=== PATIENT | female | born 1960 | race Caucasian/White ===

== ENCOUNTER 2021-11-14 10:36 | Emergency (ER) | payer MEDICARE, MEDICAID, SELFPAY ==
--- NOTE | ~2021-11-14 | CT_ITS ---
EXAMINATION: CT CERVICAL SPINE WITHOUT CONTRAST CLINICAL INFORMATION: Fall. Neck pain. COMPARISON: None TECHNIQUE: Axial images through the cervical spine without contrast. Sagittal and coronal reconstructions on the technologist workstation were performed. This CT examination was performed using dose optimization techniques as appropriate, variously including the following: *Automated exposure control *Adjustment of mA and/or kV according to patient size (this includes techniques or standardized protocols for targeted exams where dose is matched to indication/reason for exam; i.e. extremities or head) *Use of iterative reconstruction technique DLP: 462 mGy-cm FINDINGS: The head is tilted to the right. There is mild 2 mm anterior subluxation of C4 with respect to C5. Bone alignment is otherwise normal. No fracture or dislocation is seen. There is degenerative spondylosis and degenerative disc disease at C5-C6 and C6-C7. There is bilateral multilevel facet arthritis. There are degenerative changes of the C1 dens articulation. Prevertebral soft tissues are normal. There is shotty cervical lymphadenopathy. Visualized lung apices are clear. CT/CT cervical spine wo con IMPRESSION: Degenerative changes. No fracture or dislocation. Fleischner guidelines were followed.
--- NOTE | ~2021-11-14 | CT_ITS ---
EXAMINATION: CT HEAD WITHOUT CONTRAST CLINICAL INFORMATION: Fall backwards. Head trauma. Patient is anticoagulated. Rule out bleed. COMPARISON: None TECHNIQUE: Contiguous axial imaging was performed from the skull base to vertex without intravenous administration of contrast. This CT examination was performed using dose optimization techniques as appropriate, variously including the following: *Automated exposure control *Adjustment of mA and/or kV according to patient size (this includes techniques or standardized protocols for targeted exams where dose is matched to indication/reason for exam; i.e. extremities or head) *Use of iterative reconstruction technique DLP: 663 mGy-cm FINDINGS: There is no evidence of acute intracranial hemorrhage or territorial infarction. No abnormal mass effect or midline shift is seen. Ramírez to white matter differentiation is well preserved. No extra-axial fluid collections are identified. The ventricles are normal in size. There is no abnormal attenuation within the brain parenchyma. The osseous structures and soft tissues are normal. The mastoid air cells and visualized portions of the paranasal sinuses are well aerated. CT/CT head/brain wo con IMPRESSION: No acute intracranial pathology.
[2021-11-14 10:43] VITALS: BP 148/88; PULSE 78; O2SAT 98
[2021-11-14 10:45] VITALS: BP 144/77; PULSE 68; RESP 19; TEMP 36.9; O2SAT 96; BMI 34.7
--- NOTE | 2021-11-14 11:03 | ED_ITS ---
HPI - Fall General Chief Complaint: Fall Stated Complaint: HEAD PAIN,FALL W/WHEELCHIR,-LOC,+CCOLLAR,+THINNERS Time Seen by Provider: 11/14/21 10:53 Source: patient Mode of arrival: EMS Limitations: no limitations History of Present Illness HPI Narrative: 61-year-old female who presents emergency department for evaluation injury fall. The patient states that she was being transport wheelchair to the [facility] (a program she is to daily) when the wheelchair that she was in fell backwards. Patient struck her head on the ground. She denied loss consciousness. She is on blood thinners. She is currently complaining of an intermittent, throbbing headache located throughout her entire head. The pain is moderate in intensity. is also complaining of pain in the back of her head where she hit the ground. She denies neck pain, chest pain, abdominal pain, nausea, vomiting, weakness. MD complaint: fall Onset (ago): hour(s) (1) Fall from: wheelchair Fall witnessed: yes, by living facility staff Place fall occurred: other (While being transported by wheelchair) Loss of consciousness: none Prolonged down time: no Symptoms prior to fall: none Context: other (Wheelchair fell backwards while the patient was being transported) Location of injury: head Severity scale (1-10): 7 Quality: throbbing Associated symptoms (after fall): headache Related Data Allergies Allergy/AdvReac Type Severity Reaction Status Date / Time erythromycin base Allergy Swelling Verified 11/14/21 10:59 Review of Systems Review of Systems: Yes all other systems are reviewed and are negative [facility] Past Medical History [facility] Narrative: Past medical history: Patient has history of traumatic brain injury. Social history: Patient lives in a long-term setting. Patient denies tobacco, alcohol and drug use. Social History Social History Advance Directives: No Advance Directives Information Provided: No Patient : No Physical Exam Vital Signs: Vital Signs: Last Vital Signs Temp 98.4 F 11/14/21 10:45 Pulse 68 11/14/21 10:45 Resp 19 11/14/21 10:45 BP 144/77 H 11/14/21 10:45 Pulse Ox 96 11/14/21 10:45 BMI result Body Mass Index 34.7 Const: Other: Awake, alert, female patient, pleasant, cooperative, in no distress, she does have slow dysarthric speech which is comprehensible which is most likely secondary to her previous traumatic brain injury HEENT: Other: Patient has tenderness palpation of the right occiput, no obvious hematoma to palpation, no lacerations or abrasions Ears: external ears normal General nose exam: Normal external nose present Face and sinus: Yes normal facial exam Mouth: Normal oral and palatal mucosa present Throat: Yes posterior oropharynx normal Eyes: General: appearance normal, both eyes and all related structures Pupils: Equal, round and reactive pupils present Neck: Neck: Yes normal visual inspection, Yes no lymphadenopathy, Yes trachea midline and Yes supple Chest: Chest palpation & inspection: normal inspection of the chest and normal palpation of entire chest wall Resp: Effort & Inspection: normal respiratory effort and able to speak in complete sentences Auscultation: clear to auscultation bilaterally Cardio: Rate: regular rate Rhythm: regular rhythm Heart sounds: S1 normal heart sound present, S2 normal heart sound present and no murmurs GI: Inspection: Yes normal to inspection Palpation (GI): Soft to palpation, nontender and no guarding Auscultation: normal bowel sounds : General: Yes no CVA tenderness Back/Spine/Pelvis: Back: no CVA tenderness Skin: General skin exam: no rashes or lesions noted Neuro: Cranial nerves: Yes CN's II-XII intact bilaterally and Yes Equal, round and reactive pupils present Cognition (Neuro): normal cognition Motor exam (neuro): 5/5 motor strength present throughout Extrem: General: Yes normal to inspection Psych: Appearance: grossly normal Speech and movement: Normal speech and movement present Affect: normal affect Attitude: cooperative Thought process: Normal thought process present Thought content: Normal thought content present Course Course Course Narrative: 61-year-old female who presents emergency department for evaluation head injury that occurred when the wheeled sure that she is being transported in fell backwards causing her to strike her head on the ground. This was a witnessed fall, there was no loss of consciousness. The patient is currently complaining of head pain and headache. Patient is reported to be on blood thinners. Patient's examination did reveal tenderness palpation of the right occiput area of her head with no hematoma or bleeding. I did order a CT scan of the head and cervical spine. Patient's headache was treated with Tylenol 975 mg orally. 1339: CT scan of the head and cervical spine revealed no acute process. Patient is feeling better after receiving the Tylenol and states that her headache is resolved. There is a long-term staff member with the patient and the patient is medically cleared to be discharged back to her long-term. Discharge Plan Discharge Clinical Impression: Fall involving wheelchair Qualifiers: Encounter type: initial encounter Qualified Code(s): W05.0XXA - Fall from non- moving wheelchair, initial encounter Closed head injury Qualifiers: Encounter type: initial encounter Qualified Code(s): S09.90XA - Unspecified injury of head, initial encounter Headache Qualifiers: Headache chronicity pattern: acute headache Intractability: not intractable Patient Disposition: Home, Self-Care Instructions: Head Injury (ED) Additional Instructions: The CT scan of your head and cervical spine (neck) were normal, this is reassuring. Continue taking your medications as prescribed by your providers. Follow the head injury instructions. Follow-up with your doctor in 2 days. Please return to the emergency department if your symptoms get worse or if you develop any symptoms that are concerning to you.
[2021-11-14] MEDS: Acetaminophen 325 MG TABLET 975 MG PO (11:45)
== END 2021-11-14 13:53 | disposition home or self-care (01) ==
PROVIDERS: Emergency Provider Emergency Medicine Emergency Medical Services; PCP Nurse Practitioner Family
DX: S09.90XA Unspecified injury of head, initial encounter (principal); G44.309 Post-traumatic headache, unspecified, not intractable; M54.2 Cervicalgia; W01.0XXA Fall on same level from slipping, tripping and stumbling without subsequent striking against object, initial encounter; Y93.9 Activity, unspecified; Y92.9 Unspecified place or not applicable; Y99.9 Unspecified external cause status
CPT/HCPCS: 70450; 72125; 99283; 99284

== ENCOUNTER 2023-02-25 11:39 | Emergency (ER) | payer MEDICARE, MEDICAID, SELFPAY ==
--- NOTE | ~2023-02-25 | CT_ITS ---
EXAMINATION: CT HEAD WITHOUT CONTRAST CT CERVICAL SPINE WITHOUT CONTRAST CLINICAL INFORMATION: Fall. Head strike. COMPARISON: CT head and cervical spine 11/14/2021. TECHNIQUE: Sticker Hand images were obtained. CT imaging of the head and cervical spine was performed without contrast. Data was reformatted into multiplanar images at the acquisition workstation. This CT examination was performed using dose optimization techniques as appropriate, including one or more of the following: Automated exposure control, iterative reconstruction, and adjustment of technique factors (mA and/or kVp) according to patient size (this includes techniques or standardized protocols for targeted exams where dose is matched to indication/reason for exam). Fleischner Society criteria for the followup of incidental pulmonary nodules was implemented if appropriate. DLP: 1141 mGy-cm. FINDINGS: Head: There is no acute intracranial hemorrhage or abnormal extra-axial collection. No intracranial mass effect or midline shift. Lateral and third ventricles are normal. No hydrocephalus. Ramírez-white matter differentiation is grossly preserved and there is no evidence of acute territorial infarct. The calvarium and skull base are intact. Mastoid air cells and middle ear cavities are well aerated. No active paranasal sinus disease. Cervical spine: There is 3 mm anterolisthesis of C4 on C5 and 2 mm anterolisthesis of C3 on C4 that appears related to advanced facet degenerative changes at each of these 2 levels. No acute cervical spinal fracture. No abnormal prevertebral soft tissue swelling. Grossly no spinal canal compromise. There is loss of intervertebral disc height with associated sclerotic degenerative endplate changes and hypertrophic disc osteophyte spurring at multiple levels. Partially calcified atherosclerotic plaque involves both carotid bifurcations. Grossly no pathologically enlarged cervical lymph nodes. Lung apices are clear. CT/CT cervical spine wo IV con IMPRESSION: Head: No evidence of acute territorial infarct or hemorrhage. Cervical spine: There is advanced multilevel degenerative spondylosis of the cervical spine with 3 mm anterolisthesis of C4 on C5 and 2 mm anterolisthesis of C3 on C4 related to advanced facet degenerative changes at each of these 2 levels. No acute cervical spine fracture.
--- NOTE | ~2023-02-25 | CT_ITS ---
EXAMINATION: CT HEAD WITHOUT CONTRAST CT CERVICAL SPINE WITHOUT CONTRAST CLINICAL INFORMATION: Fall. Head strike. COMPARISON: CT head and cervical spine 11/14/2021. TECHNIQUE: Credit Department Manager images were obtained. CT imaging of the head and cervical spine was performed without contrast. Data was reformatted into multiplanar images at the acquisition workstation. This CT examination was performed using dose optimization techniques as appropriate, including one or more of the following: Automated exposure control, iterative reconstruction, and adjustment of technique factors (mA and/or kVp) according to patient size (this includes techniques or standardized protocols for targeted exams where dose is matched to indication/reason for exam). Fleischner Society criteria for the followup of incidental pulmonary nodules was implemented if appropriate. DLP: 1141 mGy-cm. FINDINGS: Head: There is no acute intracranial hemorrhage or abnormal extra-axial collection. No intracranial mass effect or midline shift. Lateral and third ventricles are normal. No hydrocephalus. Ramírez-white matter differentiation is grossly preserved and there is no evidence of acute territorial infarct. The calvarium and skull base are intact. Mastoid air cells and middle ear cavities are well aerated. No active paranasal sinus disease. Cervical spine: There is 3 mm anterolisthesis of C4 on C5 and 2 mm anterolisthesis of C3 on C4 that appears related to advanced facet degenerative changes at each of these 2 levels. No acute cervical spinal fracture. No abnormal prevertebral soft tissue swelling. Grossly no spinal canal compromise. There is loss of intervertebral disc height with associated sclerotic degenerative endplate changes and hypertrophic disc osteophyte spurring at multiple levels. Partially calcified atherosclerotic plaque involves both carotid bifurcations. Grossly no pathologically enlarged cervical lymph nodes. Lung apices are clear. CT/CT head/brain wo IV con IMPRESSION: Head: No evidence of acute territorial infarct or hemorrhage. Cervical spine: There is advanced multilevel degenerative spondylosis of the cervical spine with 3 mm anterolisthesis of C4 on C5 and 2 mm anterolisthesis of C3 on C4 related to advanced facet degenerative changes at each of these 2 levels. No acute cervical spine fracture.
--- NOTE | 2023-02-25 11:45 | ED_ITS ---
HPI - Fall General Chief Complaint: Fall Stated Complaint: Body Pain S/P Fall 02/25/23 Time Seen by Provider: 02/25/23 12:30 Source: patient and other ([facility]) Mode of arrival: wheelchair Limitations: physical limitation History of Present Illness HPI Narrative: Patient is a 62-year-old female with history of TBI and COPD presenting to the emergency department for evaluation after a slip and fall off the toilet earlier this morning. Patient reports that she lost her balance and this caused her to fall off of the toilet. Staff reports fall was unwitnessed. Patient denies loss of consciousness. She is not anticoagulated, is on ASA. Patient denies any current complaints of pain. She denies any dizziness or lightheadedness. She denies any changes in vision. She denies any nausea or vomiting. Staff reports minor avulsion to right buttock. MD complaint: fall Onset (ago): hour(s) Fall from: other (toilet) Fall witnessed: no Place fall occurred: other ([facility]) Loss of consciousness: unsure Symptoms prior to fall: none (patient denies) Context: other Location of injury: head and buttocks Associated symptoms (after fall): denies Related Data Allergies Allergy/AdvReac Type Severity Reaction Status Date / Time erythromycin base Allergy Swelling Verified 02/25/23 11:45 Review of Systems Review of Systems: As per HPI. Yes all other systems are reviewed and are negative Constitutional: Constitutional: Reports as per HPI [facility] Social History Social History Advance Directives: No Physical Exam Vital Signs: Vital Signs: Last Vital Signs Temp 98 F 02/25/23 11:46 Pulse 73 02/25/23 11:46 Resp 16 02/25/23 11:46 BP 110/52 L 02/25/23 11:46 Pulse Ox 96 02/25/23 11:46 O2 Del Method Room Air 02/25/23 11:46 BMI result Body Mass Index 31.9 Vital signs have been reviewed and appear to be correct. Blood pressure normal. Heart rate normal. Respiratory rate normal. Temperature normal. Oxygen saturation normal. Const: General: cooperative, healthy appearing, comfortable, no acute distress, alert and awake Nutritional Appearance: average body habitus Limitations: physical limitations (TBI) and wheelchair HEENT: Head: Yes normal to inspection, Yes No palpable skull fracture present, Yes normocephalic, Yes atraumatic, No Ramirez's sign, No raccoon eyes and No periorbital ecchymosis Ears: external ears normal and TM's normal bilaterally General nose exam: Normal external nose present Face and sinus: Yes face symmetric Mouth: oropharynx normal and moist mucous membranes Throat: Yes uvula midline Eyes: Pupils: Equal, round and reactive pupils present Neck: Neck: Yes normal visual inspection and Yes supple Resp: Effort & Inspection: normal respiratory effort and able to speak in complete sentences Auscultation: clear to auscultation bilaterally Cardio: Rate: regular rate Rhythm: regular rhythm Heart sounds: S1 normal heart sound present and S2 normal heart sound present GI: Palpation (GI): Soft to palpation and nontender Auscultation: normoactive bowel sounds : General: Yes no CVA tenderness Back/Spine/Pelvis: Back: no CVA tenderness Cervical Spine: normal cervical lordosis, cervical ROM normal, No Cervical spine tenderness and No step off deformity Thoracic/Lumbar Spine: thoracic and lumbar spine normal to inspection, No thoracic spinal tenderness and No lumbar spinal tenderness Skin: General skin exam: elasticity normal and turgor normal Trauma: other (1cm avulsion right buttock, no active bleeding) Neuro: General: moves all extremities, no focal motor deficits and CN's II-XI intact bilaterally Cranial nerves: Yes Equal, round and reactive pupils present Cognition (Neuro): normal cognition Motor exam (neuro): 5/5 motor strength present throughout Extrem: General: Yes full ROM, Yes no pedal edema and Yes no calf tenderness Psych: Mental Status: mental status grossly normal Affect: normal affect Thought process: Normal thought process present Course Course Course Narrative: RME: 62yo F wheelchair bound presenting to the ED w/aid c/o [facility]itnessed [facility] w/+head strike. Pt reports [place], denies other sx. Is on ASA. Denies lightheadedness/dizziness prior to fall No palpable skull depression or hematoma Head/C-spine CT ordered Full HPI, ROS and PE to be performed by primary ED provider. Medical Decision Making Medical Decision Making [facility] Narrative: Patient is a 62-year-old female with history of TBI and COPD presenting to the emergency department for evaluation after a slip and fall off the toilet earlier this morning. On exam patient is pleasant, awake, alert, VS WNL, afebrile, normal neurological exam without focal deficits, no midline spinal tenderness, superficial skin avulsion to right buttock without active bleeding. Given reported symptoms and physical exam findings, initial differential includes ICH, skull fracture, cervical fracture, skin avulsion. CT notable for no acute abno rmality. My interpretation is in agreement with the radiologist's interpretation. Feel patient is stable for [facility] back [facility] with staff. Return precautions discussed with staff. Staff verbalized understanding of and agreement with plan. Differential Diagnosis Differential Diagnoses: The differential diagnosis associated with the presentation includes As per MDM. Independent Interpretation I performed an independent interpretation of an: CT Scan Radiology Impression Discussion of test interpretation with radiology: I have reviewed the radiologist's reading. Radiologist Impression: CT/CT head/brain wo IV con IMPRESSION: Head: No evidence of acute territorial infarct or hemorrhage. ? Cervical spine: There is advanced multilevel degenerative spondylosis of the cervical spine with 3 mm anterolisthesis of C4 on C5 and 2 mm anterolisthesis of C3 on C4 related to advanced facet degenerative changes at each of these 2 levels. No acute cervical spine fracture. Independent Historian Clinical information obtained from an independent historian. History obtained from or confirmed by: Other (staff) External Record Review External record reviewed: Inpatient record, Office record and Outpatient record Discharge Plan Discharge Clinical Impression: Fall, Avulsion of skin Patient Disposition: Home, Self-Care Additional Instructions: You have been evaluated in the emergency department today for head injury from a fall. Your CT scan did not show signs of bleed or fractures in your head or neck. We recommend you take 600 mg ibuprofen every 6 hours or Tylenol 650 mg every 6 hours as needed for pain. If needed, you can alternate these medications so that you take 1 medication every 3 hours. For instance, at noon take ibuprofen, then at 3:00 p.m. take Tylenol, then at 6:00 p.m. take ibuprofen. Please schedule an appointment with for follow-up with your primary care provider as soon as possible. Return to the emergency department if you experience worsening or uncontrolled pain, vision changes, recurrent vomiting, difficulty with normal activities, abnormal behavior, difficulty walking, numbness, weakness, or any other concerning symptoms.
[2023-02-25 11:46] VITALS: BP 110/52; PULSE 73; RESP 16; TEMP 36.6; O2SAT 96; BMI 31.9
== END 2023-02-25 15:16 | disposition home or self-care (01) ==
PROVIDERS: Emergency Provider Emergency Medicine; PCP Nurse Practitioner Family
DX: S30.810A Abrasion of lower back and pelvis, initial encounter (principal); W18.11XA Fall from or off toilet without subsequent striking against object, initial encounter; Y93.89 Activity, other specified; Y92.041 Bathroom in boarding-house as the place of occurrence of the external cause; Y99.9 Unspecified external cause status
CPT/HCPCS: 70450; 72125; 99282; 99284

== ENCOUNTER 2023-06-28 19:14 | Emergency (ER) | payer MEDICARE, MEDICAID, SELFPAY ==
--- NOTE | ~2023-06-28 | XR_ITS ---
EXAMINATION: RIGHT KNEE: RIGHT SHOULDER CLINICAL INFORMATION: Mechanical fall with right knee and shoulder pain COMPARISON: None available. TECHNIQUE: 3 views right shoulder, 2 views right FINDINGS: Mild degenerative changes are present in the shoulder. No fracture or dislocation. There is evidence of rotator cuff disease. Severe degenerative changes are present in the right knee with marked narrowing of the medial and patellofemoral compartment. No fractures or effusions are seen. A large partially visualized exostosis is seen arising from the femoral metaphysis medially XR/XR knee RT 2V IMPRESSION: 1. No evidence of an acute traumatic osseous injury. 2. Degenerative changes in the shoulder and knee as described above.
--- NOTE | ~2023-06-28 | XR_ITS ---
EXAMINATION: RIGHT KNEE: RIGHT SHOULDER CLINICAL INFORMATION: Mechanical fall with right knee and shoulder pain COMPARISON: None available. TECHNIQUE: 3 views right shoulder, 2 views right FINDINGS: Mild degenerative changes are present in the shoulder. No fracture or dislocation. There is evidence of rotator cuff disease. Severe degenerative changes are present in the right knee with marked narrowing of the medial and patellofemoral compartment. No fractures or effusions are seen. A large partially visualized exostosis is seen arising from the femoral metaphysis medially XR/XR shoulder RT min 2V IMPRESSION: 1. No evidence of an acute traumatic osseous injury. 2. Degenerative changes in the shoulder and knee as described above.
[2023-06-28 19:32] VITALS: BP 138/88; BP 140/75; PULSE 110; PULSE 95; RESP 16; O2SAT 94; O2SAT 97; BMI 31.7
--- NOTE | 2023-06-28 20:13 | ED.FALL ---
HPI - Fall General Chief Complaint: Fall Stated Complaint: mechanical fall Time Seen by Provider: 06/28/23 19:46 Source: patient and EMS Mode of arrival: EMS Limitations: no limitations History of Present Illness HPI Narrative: 62-year-old female came in by ambulance for evaluation after a mechanical fall. Patient with a history of TBI lives at a halfway, mostly in a wheelchair, patient usually require help to be transferred from the wheelchair to the regular chair patient attempt to transfer herself from the wheelchair to the regular chair fell on her right leg/knee, patient declined head injury, no LOC, no neck pain, no nausea, no vomiting, no weakness. No chest pain. Related Data Allergies Allergy/AdvReac Type Severity Reaction Status Date / Time erythromycin base Allergy Swelling Verified 06/28/23 19:35 Review of Systems Review of Systems: All other systems are reviewed and are negative Constitutional: Reports as per HPI and Reports no additional constitutional complaints Eyes: Reports as per HPI and Reports no additional eye complaints Reports system reviewed and no additional complaints, except as documented Cardiovascular: Reports as per HPI and Reports no additional cardiovascular complaints Respiratory: Reports as per HPI and Reports no additional respiratory complaints Gastrointestinal: Reports as per HPI and Reports no additional gastrointestinal complaints Genitourinary: Reports no additional female genitourinary complaints Musculoskeletal: Reports no additional musculoskeletal complaints Skin/Breast: Reports system reviewed and no additional complaints, except as docu Psychiatric: Reports no additional psychiatric complaints Endocrine: Reports no additional endocrine complaints Hematologic/Lymphatic: Reports no additional hematologic/lymphatic complaints Allergic/Immunologic: Reports no additional allergic/immunologic complaints Reports system reviewed and no additional complaints, except as documented and Reports Abnormal speech present PMFSH Social History Social History Smoked in Last 30 Days: No Use of substances other than those prescribed or required for medical reasons: No Advance Directives: Yes Advance Directives Information Provided: Yes Advance Directives on File: No Physical Exam Vital Signs: Vital Signs: Last Vital Signs Pulse 95 06/28/23 19:32 Resp 16 06/28/23 19:32 BP 140/75 H 06/28/23 19:32 Pulse Ox 97 06/28/23 19:32 O2 Del Method Room Air 06/28/23 19:32 BMI result Body Mass Index 31.7 Vital signs have been reviewed and appear to be correct. Blood pressure elevated. Heart rate normal. Respiratory rate normal. Temperature normal. Oxygen saturation normal. Appearance: Alert. Oriented X3. No acute distress. Head: Normal external exam. Normocephalic. Atraumatic. No Ramirez signs noted. No raccoon eyes noted Eyes: PERRLA. EOMI. Conjunctiva and sclera normal. Eyelids normal. ENT: TM's Normal. Pharynx normal. Uvula midline. Moist mucous membranes. No trismus noted. No drooling noted. No muffled voice noted. Neck: Normal inspection. Neck supple. FROM. No adenopathy. Thyroid Normal. No meningeal signs. No neck mass noted. CVS: Normal heart rate and rhythm. Heart sound normal. No murmurs noted. Pulses normal throughout. Respiratory: No respiratory distress. Painless inspiration. Breath sounds normal. No wheezes/rales/rhonchi noted. Chest nontender. No accessory muscle usage noted or decreased air movement noted. Abdomen: Soft and nontender. Bowel sounds normal in all 4 quadrants. No distention noted. No organomegaly noted. No visible injury noted. Back: No CVA tenderness. Full range of motion noted. Skin: Skin warm and dry. Normal skin color. Normal skin turgor. No rashes/lesions/lacerations noted. Extremities: No lower extremity edema. Extremities exhibit normal range of motion. Extremities nontender. Neuro: Oriented X 3. Cranial nerve exam: II-XII are grossly intact No motor deficit. No sensory deficit. Reflexes normal. Course Reevaluation(s) Reevaluation #1: Mechanical fall without head or neck injury, right shoulder/right knee contusion no acute fracture. Time: 21:43 Medical Decision Making Medical Decision Making [facility] Narrative: S/p mechanical fall, no head or C-spine injury, no history of blood thinner. right shoulder/right knee no acute fracture Differential Diagnosis Differential Diagnoses: The differential diagnosis associated with the presentation includes (Closed head injury, cervical spine injury, right shoulder fracture, right knee fracture.) Admission/Observation Consideration of admission/observation: Escalation of care including admission/observation considered Independent Interpretation I performed an independent interpretation of an: Plain X-Ray (Right shoulder/right knee: No acute fracture dislocation.) Radiology Impression Discussion of test interpretation with radiology: I have reviewed the radiologist's reading. Discharge Plan Discharge Clinical Impression: Accident due to mechanical fall without injury Qualifiers: Encounter type: initial encounter Qualified Code(s): W19.XXXA - Unspecified fall, initial encounter Patient Disposition: Home, Self-Care Instructions: Fall Prevention for Older Adults (ED)
[2023-06-28 21:50] VITALS: BP 133/82; PULSE 95; RESP 16; O2SAT 96
[2023-06-28 22:21] VITALS: BP 151/78; PULSE 91; RESP 16; O2SAT 97
== END 2023-06-28 22:23 | disposition home or self-care (01) ==
PROVIDERS: Emergency Provider Emergency Medicine
DX: S89.91XA Unspecified injury of right lower leg, initial encounter (principal); S49.91XA Unspecified injury of right shoulder and upper arm, initial encounter; M25.561 Pain in right knee; W05.0XXA Fall from non-moving wheelchair, initial encounter; Y93.9 Activity, unspecified; Y92.9 Unspecified place or not applicable; Y99.9 Unspecified external cause status; Z79.899 Other long term (current) drug therapy
CPT/HCPCS: 73030; 73560; 99283; 99284

== ENCOUNTER 2023-08-28 10:11 | Emergency (ER) | payer MEDICARE, MEDICAID, SELFPAY ==
--- NOTE | ~2023-08-28 | XR_ITS ---
EXAMINATION: XR KNEE, RIGHT CLINICAL INFORMATION: Pain after fall COMPARISON: Right knee x-rays June 28, 2023 TECHNIQUE: Four views of the right knee. FINDINGS: Similar abnormal appearance of the distal femur. There is mild narrowing of the medial joint space height. Moderate-sized tricompartmental osteophytes are present. No suprapatellar joint effusion. XR/XR knee RT 3V IMPRESSION: Moderate to severe degenerative changes of the right knee. No fracture.
[2023-08-28 10:32] VITALS: BP 148/88; PULSE 84; RESP 18; TEMP 36.3; O2SAT 94; BMI 33.7
--- NOTE | 2023-08-28 14:01 | ED.LOWEXIN ---
HPI - Extremity Injury (Lower) General Chief Complaint: Extremity Injury, Lower Stated Complaint: Fall/R knee pain Time Seen by Provider: 08/28/23 12:05 Source: patient, RN notes reviewed and other ([employer] worker) Mode of arrival: wheelchair Limitations: physical limitation History of Present Illness HPI Narrative: This is a 62-year-old female, with a history of TBI lives at long term, wheelchair-bound, and COPD, presenting to the emergency department for evaluation after mechanical fall on Friday as well as today. 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 insulation worker also reports that today during a transfer from bed to toilet she landed onto her right knee again. There was no loss of consciousness. She did not hit her head. Both of these falls were witnessed per group fitness assistant department head. She has not on blood thinners. insulation worker states that she is acting at her baseline. Patient reports pain in her right knee as well as weakness in her right knee which is chronic for her and often times causes her to fall. She states that she otherwise feels okay No other complaints or concerns at this time. complaint: knee injury Onset (ago): day(s) Type of Injury: blunt Place: home Severity: moderate Relieving factors: nothing Exacerbating factors: weight bearing, movement and palpation Context: fall Other symptoms: none Related Data Allergies Allergy/AdvReac Type Severity Reaction Status Date / Time erythromycin base Allergy Swelling Verified 08/28/23 10:32 Review of Systems Review of Systems: Yes all other systems are reviewed and are negative PMFSH Past Medical History Attestation statement: The following information was validated with the patient. Social History Social History Advance Directives: No Advance Directives Information Provided: No Physical Exam Vital Signs: Vital Signs: Last Vital Signs Temp 97.4 F 08/28/23 10:32 Pulse 84 08/28/23 10:32 Resp 18 08/28/23 10:32 BP 148/88 H 08/28/23 10:32 Pulse Ox 94 08/28/23 10:32 O2 Del Method Room Air 08/28/23 10:32 BMI result Body Mass Index 33.7 Const: Other: General: Awake, alert. No acute distress. HEENT: Normal inspection, head is normocephalic atraumatic CVS: Normal heart rate and rhythm. Pulses normal. Respiratory: No respiratory distress Skin: Warm, dry, no rashes noted to exposed skin. Normal skin color. Normal skin turgor. Extremities: Right knee: With no obvious bony deformity or swelling, mild tenderness palpation along the patella, full range of motion of the knee without difficulty. No open wounds No varus or valgus laxity. Negative anterior-posterior drawer test Medical Decision Making Medical Decision Making MDM Narrative: This is a 62-year-old female, with a history of COPD, wheelchair-bound, TBI, presenting to the emergency department accompanied by group fitness assistant department head, presenting to the emergency department for evaluation of right knee pain status post to mechanical falls which occurred this week. Both these falls were witnessed, and occurred during transfers. Patient is wheelchair-bound, on examination, she has tenderness palpation along the anterior knee. No calf tenderness. No open wounds, or obvious bony deformity or swelling. Differential diagnoses include fracture, strain, sprain, contusion. X-rays were obtained revealing moderate to severe osteoarthritis. This was discussed with patient as well as group fitness assistant department head. Patient was given orthopedic follow-up. She has not on blood thinners, and there was no head strike, she is neurologically intact and at her baseline per group fitness assistant department head therefore CT scan of the head is not indicated at this time. Given return precautions. They understand and agree with plan. Stable for discharge Differential Diagnosis Differential Diagnoses: The differential diagnosis associated with the presentation includes See above Independent Interpretation I performed an independent interpretation of an: Plain X-Ray Interpretation: I reviewed the x-ray and agree with the radiology report Radiology Impression Discussion of test interpretation with radiology: I have reviewed the radiologist's reading. Radiologist Impression: EXAMINATION: XR KNEE, RIGHT CLINICAL INFORMATION: Pain after fall COMPARISON: Right knee x-rays June 28, 2023 TECHNIQUE: Four views of the right knee. FINDINGS: Similar abnormal appearance of the distal femur. There is mild narrowing of the medial joint space height. Moderate-sized tricompartmental osteophytes are present. No suprapatellar joint effusion. XR/XR knee RT 3V IMPRESSION: Moderate to severe degenerative changes of the right knee. No fracture. Dictated By: Marcel Palafox MD Discharge Plan Discharge Clinical Impression: Right knee sprain, Knee osteoarthritis Patient Disposition: Home, Self-Care Instructions: Knee Sprain (ED), Osteoarthritis (ED) Additional Instructions: Amy was seen in the emergency department today due to a mechanical fall. An x-ray of her right knee was obtained, revealing no acute bony abnormalities. Right knee does show moderate to severe osteoarthritis. I am recommending follow-up with Orthopedics, call today to make an appointment. You may ice, and also take Tylenol as needed for pain. If any new or worsening symptoms occur please return for re-evaluation. Referrals: [facility] [Provider Group] Interventions: ED Discharge Assessment Last Done: 08/28/23 14:26 Discharge Date/Time: 08/28/23 14:27
== END 2023-08-28 14:27 | disposition home or self-care (01) ==
PROVIDERS: Emergency Provider Emergency Medicine; PCP Nurse Practitioner Family
DX: S83.91XA Sprain of unspecified site of right knee, initial encounter (principal); W01.0XXA Fall on same level from slipping, tripping and stumbling without subsequent striking against object, initial encounter; Y93.9 Activity, unspecified; Y92.9 Unspecified place or not applicable; Y99.9 Unspecified external cause status
CPT/HCPCS: 73562; 99282; 99283

== ENCOUNTER 2023-09-23 10:05 | Outpatient (AMB) | payer MEDICARE, MEDICAID, SELFPAY ==
[2023-09-23 10:12] VITALS: BMI 33.7
--- NOTE | 2023-09-23 10:12 | MHC.OFFVIS ---
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 She states that her leg gave out and she fell on her Right knee about one month ago. She has had surgery on the Right knee when she was a teenager. The patient states that she spends most of her time, even before her recent fall, in a wheelchair. She takes Tylenol which gives her mild relief. Allergies erythromycin base Allergy (Verified 08/28/23 10:32) Swelling Medication List - Last Reconciled 09/23/23 by Wale Moulton MD aripiprazole 30 mg PO DAILY celecoxib 200 mg PO DAILY cephalexin 500 mg PO QID famotidine 40 mg PO DAILY fluticasone propionate 50 mcg/actuation 1 spray intranasal BID haloperidol 5 mg PO BEDTIME hydroxychloroquine 200 mg PO BID methotrexate sodium 20 mg PO QWEEK umeclidinium 62.5 mcg/actuation (Incruse Ellipta) 1 inh inhalation DAILY Physical Exam Vital Signs: BMI result Body Mass Index 33.7 Extrem Other: Right knee examination shows a minimal effusion, mild crepitus with range of motion, tenderness along her lateral joint line, no instability Results Reviewed Results Reviewed: X-rays of the patient's right knee show moderate diffuse degenerative changes, possible subacute depression of her lateral Assessment & Plan Assessment & Plan (1) Arthritis of right knee: Code(s): M17.11 - Unilateral primary osteoarthritis, right knee Plan Ms. Fox presents with right knee pain due to degenerative joint disease as well as possible subacute depression fracture of her lateral tibial plateau. Because of the possibility of a subacute fracture we will hold off on a cortisone injection for now. The patient can continued gentle [id number] exercises to prevent stiffness. She is encouraged to avoid activities that cause significant discomfort. I will see her back in 2 months' time for repeat clinical examination. If she has continued discomfort at that time we will further discuss the risks and benefits of a cortisone injection. Feel free to call me at any time should questions regarding her orthopedic management arise. I spent 19 minutes in reviewing the patient's records and imaging studies, seeing the patient and documenting in the medical record. Coding Level of Care Code New Pt Level 2 (79439) Diagnoses Arthritis of right knee M17.11
== END 2023-09-23 10:41 | disposition home or self-care (01) ==
PROVIDERS: PCP Nurse Practitioner Family; Visit Provider Orthopaedic Surgery
DX: M17.11 Unilateral primary osteoarthritis, right knee (principal)
CPT/HCPCS: 99202

== ENCOUNTER → 2023-09-23 10:05 | Outpatient (BNVA) | payer MEDICARE, MEDICAID, SELFPAY | PROVIDERS: PCP Nurse Practitioner Family; Visit Provider Orthopaedic Surgery | DX: M17.11 Unilateral primary osteoarthritis, right knee (principal) | CPT/HCPCS: 99202 ==

== ENCOUNTER 2023-11-04 08:44 | Outpatient (REF) | payer MEDICARE, MEDICAID, SELFPAY ==
--- NOTE | ~2023-11-04 | XR_ITS ---
EXAMINATION: XR KNEE, RIGHT CLINICAL INFORMATION: Unilateral primary osteoarthritis, right knee COMPARISON: None available. TECHNIQUE: 3 views of the right knee. FINDINGS: No acute fracture. Trace joint moderate-sized tricompartment marginal osteophytes. Effusion. Similar appearance of the distal femur. There is mild narrowing of the medial joint space height. XR/XR knee RT 3V IMPRESSION: Moderate to severe degenerative changes of the right knee. No acute fracture.
== END 2023-11-04 08:45 | disposition home or self-care (01) ==
LOC: HO.HOSX 08:44
PROVIDERS: Visit Provider Orthopaedic Surgery
DX: M17.11 Unilateral primary osteoarthritis, right knee (principal)
CPT/HCPCS: 20610; 73562; 99212; J1010

== ENCOUNTER 2023-11-04 11:10 | Outpatient (AMB) | payer MEDICARE, MEDICAID, SELFPAY ==
[2023-11-04 11:26] VITALS: BMI 34.5
--- NOTE | 2023-11-04 11:26 | MHC.OFFVIS ---
Vital Signs 11/04/23 11:26 Height 5 ft 3 in Weight 195 lb BMI 34.5 Intake Visit Reasons: Right knee pain possible inj Intake Note: Amy is a 63 year old female who presents today for follow up on Right knee pain. Patient reports pain is terrible behind the knee and at the base of the knee. Patient has been sleeping on reclining chair because she cannot get out of bed. Patient has also experienced trouble toileting. Patient shared she has been applying ice and taking ibuprofen for pain. 10 on pain scale. Patient would like cortisone injection today. 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 Allergies erythromycin base Allergy (Verified 11/04/23 11:26) Swelling Medication List - Last Reconciled 11/04/23 by Wale Moulton MD aripiprazole 30 mg PO DAILY celecoxib 200 mg PO DAILY famotidine 40 mg PO DAILY fluticasone propionate 50 mcg/actuation 1 spray intranasal BID haloperidol 5 mg PO BEDTIME hydroxychloroquine 200 mg PO BID methotrexate sodium 20 mg PO QWEEK umeclidinium 62.5 mcg/actuation (Incruse Ellipta) 1 inh inhalation DAILY Physical Exam Vital Signs: BMI result Body Mass Index 34.5 Const Other: Well-nourished well-developed very friendly female awake alert and oriented x3 in no acute distress Extrem Other: Right knee examination shows a minimal effusion, palpable crepitus with range of motion, pain with range of motion, no instability Office Procedures Joint Injection/Drain Joint Injection/Drain Primary Site: right knee Prep: site was prepped using aseptic technique Injected: 40 mg of, DepoMedrol and 1% plain lidocaine Procedure: The patient tolerated the procedure well Coding 61967 - Large joint Procedure code (CPT) selection complete Results Reviewed Results Reviewed: X-rays of the patient's right knee taken today show moderate diffuse joint space narrowing, an old lateral tibial plateau fracture, no acute bony abnormalities Assessment & Plan Assessment & Plan (1) Arthritis of right knee: Code(s): M17.11 - Unilateral primary osteoarthritis, right knee Category: Medical Plan Ms. Fox presents with right knee pain due to degenerative joint disease. I had a lengthy discussion with the patient regarding the treatment options. The risks and benefits of a right knee cortisone injection were discussed at length with the patient. The patient wished proceed with the injection. She tolerated the injection well. She will continue with activities as tolerated. She will contact me prior to her follow-up appointment in 3 months should any questions or concerns arise. Feel free to call me at any time should questions regarding her orthopedic management arise. I spent 22 minutes in reviewing the patient's records and imaging studies, seeing the patient and documenting in the medical record. Orders: Orders XR knee RT 3V Today M17.11 - Unilateral primary osteoarthritis, right knee AMB Joint Injection/Aspiration Today M17.11 - Unilateral primary osteoarthritis, right knee Coding Level of Care Code Est Pt Level 2 (78298) Diagnoses Arthritis of right knee M17.11 CPT Codes Coding - 30296 Large joint: 74278 - Large joint ([id number])
== END 2023-11-04 12:07 | disposition home or self-care (01) ==
PROVIDERS: PCP Nurse Practitioner Family; Visit Provider Orthopaedic Surgery
DX: M17.11 Unilateral primary osteoarthritis, right knee (principal)
CPT/HCPCS: 20610; 99213

== ENCOUNTER 2023-11-19 10:46 | Emergency (ER) | payer MEDICARE, MEDICAID, SELFPAY ==
--- NOTE | ~2023-11-19 | CT_ITS ---
EXAMINATION: CT HEAD WITHOUT CONTRAST CLINICAL INFORMATION: [facility]witnessed mechanical fall at [facility]. Blunt head trauma without loss of consciousness, significant head injury and posttraumatic headache. COMPARISON: CT scan of brain on 02/25/2023 TECHNIQUE: Contiguous axial imaging was performed from the skull base to vertex without intravenous administration of contrast. This CT examination was performed using dose optimization techniques as appropriate, variously including the following: *Automated exposure control *Adjustment of mA and/or kV according to patient size (this includes techniques or standardized protocols for targeted exams where dose is matched to indication/reason for exam; i.e. extremities or head) *Use of iterative reconstruction technique DLP: 722 mGy-cm FINDINGS: Ventricles, sulci and cisterns are dilated, including prominent ventriculomegaly. Left frontal periventricular and bilateral parietal deep white matter shows decrease in attenuation. There is no midline shift, no abnormal intra- or extra- axial fluid accumulation. Ramírez and white matter differentiation is normal. Bone window images show no evidence of skull fracture. CT/CT head/brain wo IV con IMPRESSION: 1. 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 2. No intracranial hemorrhage or skull fracture is seen. 3. No evidence of space occupying lesion could be found. 4. The current plain CT scan of the brain shows no diagnostic evidence of acute cerebral infarction.
--- NOTE | ~2023-11-19 | CT_ITS ---
EXAMINATION: CT CERVICAL SPINE WITHOUT CONTRAST CLINICAL INFORMATION: Mechanical fall, cervical spine injury and pain COMPARISON: CT scan of cervical spine on 02/25/2023 TECHNIQUE: Multiple 3.0 and 0.6 mm axial images were obtained from base of skull to T1 levels without IV contrast enhancement. Sagittal and coronal 2.0 mm bone window images were reconstructed from axial image data. This CT examination was performed using dose optimization techniques as appropriate, variously including the following: *Automated exposure control *Adjustment of mA and/or kV according to patient size (this includes techniques or standardized protocols for targeted exams where dose is matched to indication/reason for exam; i.e. extremities or head) *Use of iterative reconstruction technique DLP: 607 mGy-cm FINDINGS: C1/C2: Bony structures are intact with normal alignment. There is no spinal stenosis. C2/C3: Bony structures are intact with normal alignment. There is no spinal stenosis. There is mild asymmetric right C2/C3 neuroforaminal stenosis. Bilateral apophyseal joints are intact with normal alignment. C3/C4: Bony structures are intact with anterior C3 on C4 displacement by 0.2 cm. There is no spinal stenosis. Bilateral C3/C4 neuroforamina are markedly stenosed, more severe on the left side. Bilateral apophyseal joints are intact with normal alignment. C4/C5: Bony structures are intact with anterior C4 on C5 displacement by 0.3 cm. There is no spinal stenosis. Bilateral C4/C5 neuroforamina are severely stenosed. Bilateral apophyseal joints are intact with normal alignment. C5/C6: Bony structures are intact with normal alignment. There is marked decrease in intervertebral disc height. Sharp large anterior syndesmophytes, small sharp posterior syndesmophytes are present. There is mild spinal stenosis with AP diameter of the spinal canal reduced to 9.7 mm. Bilateral C5/C6 neuroforamina are markedly stenosed. Bilateral apophyseal joints are intact with normal alignment. C6/C7: Bony structures are intact with normal alignment. There is marked decrease in intervertebral disc height. Sharp anterior syndesmophytes are present. There is no spinal stenosis. There is mild right C6/C7 neuroforaminal stenosis. Bilateral apophyseal joints are intact with normal alignment. C7/T1: Bony structures are intact with normal alignment. There is no spinal stenosis. Bilateral C7/T1 neuroforamina are patent. Bilateral apophyseal joints are intact with normal alignment. Multilevel bilateral apophyseal joint and uncovertebral joint osteoarthritis with loss of joint space, sclerosis, facet hypertrophy and osteophytosis are seen. CT/CT cervical spine wo IV con IMPRESSION: 1. No evidence of acute fracture or dislocation in the cervical spine. 2. Unchanged multilevel cervical spondylosis including advanced C5-C6 and C6-C7 degenerative cervical disc disease. 3. Unchanged grade 1 C3-C4, C4-C5 anterolisthesis. 4. Unchanged mild C5-C6 level spinal stenosis. 5. Unchanged multilevel cervical neural foramina stenosis as described above.
--- NOTE | 2023-11-19 11:23 | ED_ITS ---
HPI - General Adult General Chief complaint: Fall Stated complaint: Unwitnessed fall today Related Data Home Medications ?Medication ?Instructions ?Recorded ?Confirmed aripiprazole 30 mg tablet 30 mg PO DAILY 09/23/23 11/04/23 celecoxib 200 mg capsule 200 mg PO DAILY 09/23/23 11/04/23 famotidine 40 mg tablet 40 mg PO DAILY 09/23/23 11/04/23 fluticasone propionate 50 1 spray intranasal BID 09/23/23 11/04/23 mcg/actuation nasal spray,suspension haloperidol 5 mg tablet 5 mg PO BEDTIME 09/23/23 11/04/23 hydroxychloroquine 200 mg tablet 200 mg PO BID 09/23/23 11/04/23 methotrexate sodium 2.5 mg tablet 20 mg PO QWEEK 09/23/23 11/04/23 umeclidinium 62.5 mcg/actuation 1 inh inhalation DAILY 09/23/23 11/04/23 blister powder for inhalation (Incruse Ellipta) Allergies Allergy/AdvReac Type Severity Reaction Status Date / Time erythromycin base Allergy Swelling Verified 11/19/23 11:27 [facility] Social History Social History Advance Directives: No Advance Directives Information Provided: No Physical Exam ED Vital Signs: Vital Signs - 24 hr 11/19/23 11:24 Temperature 97.3 F Pulse Rate 73 Respiratory Rate 16 Blood Pressure 140/102 H Pulse Oximetry 94 Oxygen Delivery Method Room Air BMI result Body Mass Index 33.7 Course Course Course Narrative: This is a rapid medical exam performed by Saray Velásquez NP: Additional HPI, ROS, PE not included below will be deferred to primary provider. Patient is a 63-year-old female presenting to the emergency department with skilled nursing staff stating that she fell out of bed today when trying to get out of bed. She denies head strike or loss of consciousness, states that she was on the floor for about 3 minutes. Fall was unwitnessed. EMS was called for a lift assist to get patient off the floor but she was not transported to the hospital at that time. When skilled nursing director was notified on the incident, she advised staff that patient needed to be evaluated in the ED. She is not anticoagulated, just daily ASA. Patient denies any complaints. Plan: CT head and neck. Discharge Plan Discharge Clinical Impression: Diagnosis unknown Patient Disposition: Left W/O Completing Treatment Prescriptions: No Action Incruse Ellipta 62.5 mcg/actuation blister with device 1 inh inhalation DAILY famotidine 40 mg tablet 40 mg PO DAILY aripiprazole 30 mg tablet 30 mg PO DAILY hydroxychloroquine 200 mg tablet 200 mg PO BID celecoxib 200 mg capsule 200 mg PO DAILY fluticasone propionate 50 mcg/actuation spray,suspension 1 spray intranasal BID methotrexate sodium 2.5 mg tablet 20 mg PO QWEEK haloperidol 5 mg tablet 5 mg PO BEDTIME Discharge Date/Time: 11/19/23 12:44
[2023-11-19 11:24] VITALS: BP 140/102; PULSE 73; RESP 16; TEMP 36.3; O2SAT 94; BMI 33.7
== END 2023-11-19 12:44 | disposition left against medical advice (07) ==
PROVIDERS: Emergency Provider Emergency Medicine
DX: S19.9XXA Unspecified injury of neck, initial encounter (principal); S09.90XA Unspecified injury of head, initial encounter; W06.XXXA Fall from bed, initial encounter; Y93.9 Activity, unspecified; Y92.89 Other specified places as the place of occurrence of the external cause; Y99.9 Unspecified external cause status; R51.9 Headache, unspecified; M54.2 Cervicalgia
CPT/HCPCS: 70450; 72125; 99281; 99284

== ENCOUNTER 2024-01-04 20:38 | Emergency (ER) | payer MEDICARE, MEDICAID, SELFPAY ==
--- NOTE | ~2024-01-04 | XR_ITS ---
EXAMINATION: XR HUMERUS, RIGHT CLINICAL INFORMATION: Pain in upper humerus/right shoulder COMPARISON: None available. TECHNIQUE: AP and lateral views of the right humerus. FINDINGS: Old healed fracture deformity of the midshaft of the humerus. No acute fracture. There is advanced degenerative change of the elbow joint narrowing and large marginal bone spurs. No acute abnormality. No acute fracture. No dislocation of elbow or shoulder. XR/XR humerus RT IMPRESSION: 1. No acute abnormality of the humerus. 2. Old healed fracture deformity of the midshaft of humerus. 3. Advanced degenerative change of the elbow.
--- NOTE | ~2024-01-04 | XR_ITS ---
EXAMINATION: XR BILATERAL HIPS WITH AP PELVIS CLINICAL INFORMATION: Fall. COMPARISON: None available. TECHNIQUE: AP view of the pelvis and 2 views of each hip were obtained. FINDINGS: Status post right hip replacement. No acute fracture. Deformity of the right symphysis pubis from old fracture. No dislocation. Multilevel degenerative spondylosis lower lumbar spine. XR/XR hips LESLIE min 3V IMPRESSION: 1. No acute abnormality of pelvis or hips. 2. Status post right hip replacement.
--- NOTE | ~2024-01-04 | CT_ITS ---
EXAMINATION: CT head/brain wo IV con CT cervical spine wo IV con INDICATION INFORMATION: Fall, neck pain COMPARISON: CT head/C-spine 11/19/2023 TECHNIQUE: Separate noncontrast CT examinations of the head and cervical spine were performed. Coronal and sagittal reformats were obtained at the acquisition workstation. This CT examination was performed using dose optimization techniques as appropriate, variously including the following: * Automated exposure control * Adjustment of mA and/or kV according to patient size (this includes techniques or standardized protocols for targeted exams where dose is matched to indication/reason for exam; i.e. extremities or head) * Use of iterative reconstruction technique DLP: 1173 mGy-cm FINDINGS: HEAD: There is no evidence of acute intracranial hemorrhage or territorial infarction. Ramírez to white matter differentiation is well preserved. No abnormal mass effect or midline shift is seen. No extra-axial fluid collections are identified. No hydrocephalus. Proportional prominence of the ventricles and sulcal spaces is consistent with mild volume loss. Patchy periventricular and deep white matter hypoattenuation is consistent with mild small vessel ischemic changes. The cerebellar tonsils are well positioned. No acute osseous or soft tissue abnormality. Visualized portions of the orbits are unremarkable. The mastoid air cells and visualized portions of the paranasal sinuses are well aerated. Small volume cerumen in bilateral external auditory canals. CERVICAL SPINE: Mild anterolisthesis of C3 on C4 and C4 on C5, as before. There is loss of normal cervical lordosis. Degenerative disc disease at C5-C6 and C6-C7 with loss intervertebral disc height and marginal osteophytes. Otherwise, intervertebral disc heights are maintained. Vertebral body heights are normal. No acute fracture or spinal listhesis. Multilevel bilateral moderate neural foraminal stenosis. Posterior projecting disc osteophyte complex at C5-C6 results in mild canal stenosis, as before. Moderate atlantodental spondylosis. The atlantoaxial and atlantooccipital articulations are intact. No prevertebral soft tissue swelling. There is no cervical lymphadenopathy. The visualized thyroid gland is unremarkable. The visualized lung apices are clear. CT/CT cervical spine wo IV con IMPRESSION: 1. No acute intracranial pathology. 2. No acute osseous abnormality within the cervical spine. 3. Chronic changes as described above.
[2024-01-04 20:46] VITALS: BP 138/92; PULSE 96; PULSE 98; RESP 18; TEMP 36.6; O2SAT 94; O2SAT 98; BMI 37.6
--- NOTE | 2024-01-04 22:42 | ED.FALL ---
HPI - Fall General Chief Complaint: Fall Stated Complaint: fall out of wheelchair Time Seen by Provider: 01/04/24 20:45 Source: patient Mode of arrival: ambulatory Limitations: no limitations History of Present Illness ED Provider: Dr. Pauly Jules HPI Narrative: Patient comes to the emergency room complaining of a mechanical fall. Patient states that earlier today she was transferring from her wheelchair to a chair, seems that patient bleeding forward and fell. Patient complaining of mild neck pain, denies being on blood thinners. Patient states that she was not unconscious. Patient has history of traumatic brain injury per intermediate. At baseline patient has slurred speech. Patient reports new pain in her right arm. Otherwise patient states that she feels well. Related Data Home Medications ?Medication ?Instructions ?Recorded ?Confirmed aripiprazole 30 mg tablet 30 mg PO DAILY 09/23/23 11/04/23 celecoxib 200 mg capsule 200 mg PO DAILY 09/23/23 11/04/23 famotidine 40 mg tablet 40 mg PO DAILY 09/23/23 11/04/23 fluticasone propionate 50 1 spray intranasal BID 09/23/23 11/04/23 mcg/actuation nasal spray,suspension haloperidol 5 mg tablet 5 mg PO BEDTIME 09/23/23 11/04/23 hydroxychloroquine 200 mg tablet 200 mg PO BID 09/23/23 11/04/23 methotrexate sodium 2.5 mg tablet 20 mg PO QWEEK 09/23/23 11/04/23 umeclidinium 62.5 mcg/actuation 1 inh inhalation DAILY 09/23/23 11/04/23 blister powder for inhalation (Incruse Ellipta) Allergies Allergy/AdvReac Type Severity Reaction Status Date / Time erythromycin base Allergy Swelling Verified 01/04/24 20:49 Review of Systems Review of Systems: Constitutional : No Weight loss, No Fever, No Chills, No Night Sweats, No Fatigue, No Malaise ENT/Mouth : No Hearing loss, No Ear Pain, No Nasal Congestion, No Sinus Pain, No Hoarseness, No sore throat, No Rhinorrhea, No Swallowing Difficulty Eyes: No Eye Pain, No Swelling, No Redness, No Foreign Body, No Discharge, No Vision Changes Cardiovascular : No Chest Pain, No SOB, No Dyspnea on Exertion, No Orthopnea, No Edema, No Palpitations Respiratory : No Cough, No Sputum, No Wheezing, No Smoke Exposure, No Dyspnea Gastrointestinal : No Nausea, No Vomiting, No Diarrhea, No Constipation, No abdominal Pain, No Hematochezia, No Melena Genitourinary : no irregular bleeding, No Dysuria, No Urinary Frequency, No Hematuria, No Urinary Incontinence, No Urgency, No Flank Pain, No Urinary Flow Changes, No Hesitancy Musculoskeletal : Patient complaining of right arm pain. Skin : No Skin Lesions, No rash Neuro : No Weakness, No Numbness, No Paresthesias, No Loss of Consciousness, No Dizziness, No Headache Psych : No Anxiety/Panic, No Depression, No SI/HI/AH/VH, No Social Issues, Heme/Lymph: No Bruising, No Bleeding,No Lymphadenopathy Endocrine : No Polyuria, No Polydipsia, No Temperature Intolerance [facility] Past Medical History Medical History (Updated 01/04/24 @ 23:57 by Pauly Jules MD) COPD (chronic obstructive pulmonary disease) TBI (traumatic brain injury) Social History Social History Smoked in Last 30 Days: No Advance Directives: No Advance Directives Information Provided: No Do you have a plan to hurt others: No Plan Patient : No Physical Exam Vital Signs: Vital Signs: Last Vital Signs Temp 97.9 F 01/04/24 23:37 Pulse 78 01/04/24 23:37 Resp 16 01/04/24 23:37 BP 129/48 L 01/04/24 23:37 Pulse Ox 95 01/04/24 23:37 O2 Del Method Room Air 01/04/24 23:37 BMI result Body Mass Index 37.6 Const: Other: Appearance: Alert. Oriented X1. No acute distress. Eyes: Pupils equal, round and reactive to light. ENT: Pharynx normal. Neck: On C-spine precautions, no pain to palpation, no palpable step-offs CVS: Normal heart rate and rhythm. Pulses normal. Normal S1 and S2 Respiratory: No respiratory distress. Breath sounds normal. No Wheezing. No rales Abdomen: Soft and nontender. No rigidity. No distention. Skin: Skin warm and dry. Normal skin color. Normal skin turgor. Extremities: No lower extremity edema. No Lacerations. No Rash Neuro: At baseline patient leans towards the right, has slurred speech at baseline.f Psych: calm, cooperative, normal affect Medical Decision Making Medical Decision Making MDM Narrative: -my interpretation of CT scan: No obvious intracranial bleed. -radiology report, no fracture, no intracranial bleed = x-rays of the hip in the humerus show no fracture. Patient states that she feels well and would like to be discharged Differential Diagnosis Differential Diagnoses: The differential diagnosis associated with the presentation includes (Head contusion, concussion, intracranial bleed, cervical spine injury, humerus fracture, hip dislocation versus fracture) Admission/Observation Consideration of admission/observation: Escalation of care including admission/observation considered (Given patient's multiple injuries, observation was considered) Independent Interpretation I performed an independent interpretation of an: Plain X-Ray and CT Scan Radiology Impression Discussion of test interpretation with radiology: I have reviewed the radiologist's reading. Radiologist Impression: FINDINGS: HEAD: There is no evidence of acute intracranial hemorrhage or territorial infarction. Ramírez to white matter differentiation is well preserved. No abnormal mass effect or midline shift is seen. No extra-axial fluid collections are identified. No hydrocephalus. Proportional prominence of the ventricles and sulcal spaces is consistent with mild volume loss. Patchy periventricular and deep white matter hypoattenuation is consistent with mild small vessel ischemic changes. The cerebellar tonsils are well positioned. No acute osseous or soft tissue abnormality. Visualized portions of the orbits are unremarkable. The mastoid air cells and visualized portions of the paranasal sinuses are well aerated. Small volume cerumen in bilateral external auditory canals. CERVICAL SPINE: Mild anterolisthesis of C3 on C4 and C4 on C5, as before. There is loss of normal cervical lordosis. Degenerative disc disease at C5-C6 and C6-C7 with loss intervertebral disc height and marginal osteophytes. Otherwise, intervertebral disc heights are maintained. Vertebral body heights are normal. No acute fracture or spinal listhesis. Multilevel bilateral moderate neural foraminal stenosis. Posterior projecting disc osteophyte complex at C5-C6 results in mild canal stenosis, as before. Moderate atlantodental spondylosis. The atlantoaxial and atlantooccipital articulations are intact. No prevertebral soft tissue swelling. There is no cervical lymphadenopathy. The visualized thyroid gland is unremarkable. The visualized lung apices are clear. CT/CT head/brain wo IV con IMPRESSION: 1. No acute intracranial pathology. 2. No acute osseous abnormality within the cervical spine. 3. Chronic changes as described above. 1. No acute abnormality of the humerus. 2. Old healed fracture deformity of the midshaft of humerus. 3. Advanced degenerative change of the elbow. Status post right hip replacement. No acute fracture. Deformity of the right symphysis pubis from old fracture. No dislocation. Multilevel degenerative spondylosis lower lumbar spine. XR/XR hips LESLIE min 3V IMPRESSION: 1. No acute abnormality of pelvis or hips. 2. Status post right hip replacement. Critical Care Time Critical Care Time Critical Care Time: Yes Total Critical Care Time: 30 Attestation: I have personally provided critical care time. Time includes review of lab data, radiology results, discussion with consultants, and monitoring for potential decompensation. Intervention performed as documented. Discharge Plan Discharge Clinical Impression: Fall, Contusion Patient Disposition: Home, Self-Care Instructions: Fall Prevention (ED) Prescriptions: No Action Incruse Ellipta 62.5 mcg/actuation blister with device 1 inh inhalation DAILY famotidine 40 mg tablet 40 mg PO DAILY aripiprazole 30 mg tablet 30 mg PO DAILY hydroxychloroquine 200 mg tablet 200 mg PO BID celecoxib 200 mg capsule 200 mg PO DAILY fluticasone propionate 50 mcg/actuation spray,suspension 1 spray intranasal BID methotrexate sodium 2.5 mg tablet 20 mg PO QWEEK haloperidol 5 mg tablet 5 mg PO BEDTIME Print Language: Tunisian
[2024-01-04 23:37] VITALS: BP 129/48; PULSE 78; RESP 16; TEMP 36.6; O2SAT 95
--- NOTE | 2024-01-05 00:12 | MHC.EDTECH ---
[facility] called @0003, spoke to Sami from [facility] ETA of 45 mins was given
[2024-01-05 01:37] VITALS: BP 130/75; PULSE 79; RESP 16; TEMP 36.9; O2SAT 96
== END 2024-01-05 01:38 | disposition home or self-care (01) ==
PROVIDERS: Emergency Provider Emergency Medicine
DX: S10.93XA Contusion of unspecified part of neck, initial encounter (principal); R51.9 Headache, unspecified; M54.2 Cervicalgia; M25.552 Pain in left hip; M25.551 Pain in right hip; W05.0XXA Fall from non-moving wheelchair, initial encounter; Y93.9 Activity, unspecified; Y92.9 Unspecified place or not applicable; Y99.8 Other external cause status; Z79.899 Other long term (current) drug therapy
CPT/HCPCS: 70450; 72125; 73060; 73522; 99284

== ENCOUNTER 2024-02-10 11:32 | Outpatient (AMB) | payer MEDICARE, MEDICAID, SELFPAY ==
--- NOTE | 2024-02-10 11:44 | A.OFFVIS_ITS ---
Vital Signs 02/10/24 11:50 Height 5 ft 4 in Weight 218 lb BMI 37.4 Intake Visit Reasons: Right knee pain Intake Note: Amy is a 63 year old female who presents today in a wheelchair for a follow up of right knee, last injection on 11/04/23. Patient reports that the injection did not provide her with relief. She continues to have ongoing pain mostly at the posterior aspect of knee. She has taken Tylenol and anti-inflammatory medicines which gave her minimal relief. She has also done physical therapy exercises which aggravated her pain. She has failed the last 3 months of a home exercise program, Tylenol and anti-inflammatory medicines. She has also had cortisone injections which gave her no relief. Patient has not had a viscosupplementation injection. At this point her right knee pain is interfering with her activities of daily living and her ability to sleep well through the night. The patient wishes to hold off on surgery if at all possible. Allergies erythromycin base Allergy (Verified 02/10/24 11:54) Swelling Medication List - Last Reconciled 02/10/24 by Wale Moulton MD aripiprazole 30 mg PO DAILY celecoxib 200 mg PO DAILY famotidine 40 mg PO DAILY fluticasone propionate 50 mcg/actuation 1 spray intranasal BID haloperidol 5 mg PO BEDTIME hydroxychloroquine 200 mg PO BID methotrexate sodium 20 mg PO QWEEK umeclidinium 62.5 mcg/actuation (Incruse Ellipta) 1 inh inhalation DAILY [facility] Medical History COPD (chronic obstructive pulmonary disease) TBI (traumatic brain injury) Physical Exam Vital Signs: BMI result Body Mass Index 37.4 Const Other: Well-nourished well-developed very friendly female awake alert and oriented x3 in no acute distress Extrem Other: Bilateral lower extremity examination shows good capillary refill, no skin lesions noted, normal sensation light touch Right knee examination shows a minimal effusion, mild crepitus with range of motion, pain with range of motion, no instability Results Reviewed Results Reviewed: X-rays of the patient's right knee show joint space narrowing, subchondral sclerosis, no acute bony abnormalities Assessment & Plan Assessment & Plan (1) Right knee pain: Code(s): M25.561 - Pain in right knee (2) Osteoarthritis of right knee: Code(s): M17.11 - Unilateral primary osteoarthritis, right knee Category: Medical Plan Ms. Fox presents with progressively worsening right knee pain due to osteoarthritis. I had a lengthy discussion with the patient regarding the treatment options. She wishes to hold off on surgery if at all possible. I agree with this plan. The patient has failed the last 3 months of conservative treatment. She has also had cortisone injections. The most recent injection gave her no relief. Thus, I will see whether or not the patient's insurance company will cover a viscosupplementation injection. I will see her back once the injection is available. Feel free to call me at any time should questions regarding her orthopedic management arise. I spent 21 minutes in reviewing the patient's records and imaging studies, seeing the patient and documenting in the medical record. Coding Level of Care Code Est Pt Level 3 (75749) Diagnoses Right knee pain M25.561 Osteoarthritis of right knee M17.11
[2024-02-10 11:50] VITALS: BMI 37.4
== END 2024-02-10 12:03 | disposition home or self-care (01) ==
PROVIDERS: PCP Nurse Practitioner Family; Visit Provider Orthopaedic Surgery
DX: M17.11 Unilateral primary osteoarthritis, right knee (principal)
CPT/HCPCS: 99213

== ENCOUNTER → 2024-02-10 11:32 | Outpatient (BNVA) | payer MEDICARE, MEDICAID, SELFPAY | PROVIDERS: PCP Nurse Practitioner Family; Visit Provider Orthopaedic Surgery | DX: M25.561 Pain in right knee (principal); M17.11 Unilateral primary osteoarthritis, right knee | CPT/HCPCS: 99212 ==

== ENCOUNTER 2024-02-15 15:00 | Emergency (ER) | payer MEDICARE, MEDICAID, SELFPAY ==
--- NOTE | ~2024-02-15 | XR_ITS ---
EXAMINATION: PELVIS RIGHT HIP RIGHT KNEE CLINICAL INFORMATION: Fall COMPARISON: Right hip 01/04/24 TECHNIQUE: Frontal view of the pelvis. 2 views right hip. 4 views right knee FINDINGS: Pelvis: There is no definite disruption of the SI joints. There is a relatively shallow left acetabulum with some uncovering of the left femoral head with slight remodeling. There is instrumentation involving the right hip. There is unchanged. There is deformity in the right side of the pubic symphysis and right pubic bones. This appears unchanged. No evidence of a suspicious pelvic mass or collection. There are vascular calcifications. There is degenerative change in the lower spine. Right hip: The hardware appears intact. No periprosthetic fracture demonstrated. The heterotopic ossification in the soft tissues medially demonstrated on the previous study is not included. There may be some ossification around the left hip unchanged. Right knee: Comparison with frontal view 11/04/23 There is remodeling deformity consistent with a healed distal femoral fracture. There is osteopenia. There are proliferative changes and some irregularities of the articular surfaces around the knee. There is some stranding in the soft tissues. No large joint effusion. XR/XR knee RT 3V IMPRESSION: Previous right hip instrumentation. I suspect chronic right pubic fractures. Chronic remodeling deformity from old injury in the distal femur. No definite acute fracture or subluxation demonstrated.
--- NOTE | ~2024-02-15 | XR_ITS ---
EXAMINATION: PELVIS RIGHT HIP RIGHT KNEE CLINICAL INFORMATION: Fall COMPARISON: Right hip 01/04/24 TECHNIQUE: Frontal view of the pelvis. 2 views right hip. 4 views right knee FINDINGS: Pelvis: There is no definite disruption of the SI joints. There is a relatively shallow left acetabulum with some uncovering of the left femoral head with slight remodeling. There is instrumentation involving the right hip. There is unchanged. There is deformity in the right side of the pubic symphysis and right pubic bones. This appears unchanged. No evidence of a suspicious pelvic mass or collection. There are vascular calcifications. There is degenerative change in the lower spine. Right hip: The hardware appears intact. No periprosthetic fracture demonstrated. The heterotopic ossification in the soft tissues medially demonstrated on the previous study is not included. There may be some ossification around the left hip unchanged. Right knee: Comparison with frontal view 11/04/23 There is remodeling deformity consistent with a healed distal femoral fracture. There is osteopenia. There are proliferative changes and some irregularities of the articular surfaces around the knee. There is some stranding in the soft tissues. No large joint effusion. XR/XR hip RT w PEL1V IMPRESSION: Previous right hip instrumentation. I suspect chronic right pubic fractures. Chronic remodeling deformity from old injury in the distal femur. No definite acute fracture or subluxation demonstrated.
--- NOTE | 2024-02-15 14:58 | ED.FALL ---
HPI - Fall General Chief Complaint: Fall Stated Complaint: WIT FALL FROM [facility],NO COMPLAINTS PER EMS History of Present Illness HPI Narrative: Patient from skilled nursing brought after a fall from her wheelchair, she was leaning over to get something and fell from the chair onto her right side, she felt no discomfort or pain and denies any injury did not hit her head and was in her normal state of health when she was held back by the attendance at her facility Right now she has no complaint denies any developing pain Denies head strike denies headache denies nausea or vomiting denies vision changes denies fainting or feeling faint denies neck pain denies numbness weakness or tingling denies chest pain or shortness of breath, denies abdominal pain no nausea vomiting, denies any new extremity injuries Related Data Home Medications ?Medication ?Instructions ?Recorded ?Confirmed aripiprazole 30 mg tablet 30 mg PO DAILY 09/23/23 02/10/24 celecoxib 200 mg capsule 200 mg PO DAILY 09/23/23 02/10/24 famotidine 40 mg tablet 40 mg PO DAILY 09/23/23 02/10/24 fluticasone propionate 50 1 spray intranasal BID 09/23/23 02/10/24 mcg/actuation nasal spray,suspension haloperidol 5 mg tablet 5 mg PO BEDTIME 09/23/23 02/10/24 hydroxychloroquine 200 mg tablet 200 mg PO BID 09/23/23 02/10/24 methotrexate sodium 2.5 mg tablet 20 mg PO QWEEK 09/23/23 02/10/24 umeclidinium 62.5 mcg/actuation 1 inh inhalation DAILY 09/23/23 02/10/24 blister powder for inhalation (Incruse Ellipta) Allergies Allergy/AdvReac Type Severity Reaction Status Date / Time erythromycin base Allergy Swelling Verified 02/15/24 15:08 [facility] Past Medical History Source: nursing notes reviewed Medical History COPD (chronic obstructive pulmonary disease) TBI (traumatic brain injury) Social History Social History Advance Directives: No Advance Directives Information Provided: Yes Do you have a plan to hurt others: No Plan Physical Exam Vital Signs: Vital Signs: Last Vital Signs Temp 97.8 F 02/15/24 15:06 Pulse 83 02/15/24 15:06 Resp 18 02/15/24 15:06 BP 145/68 H 02/15/24 15:06 Pulse Ox 94 02/15/24 15:06 O2 Del Method Room Air 02/15/24 15:06 BMI result Body Mass Index 37.4 General appearance is cheerful cooperative no acute distress Head is normocephalic atraumatic Neck is supple full range of motion nontender Chest wall is nontender, no pain with deep breath, lungs are clear to auscultation bilateral The abdomen is soft and nontender Extremities showed no significant tenderness or swelling in lower extremities, exam is limited by patient's pre-existing difficulty in using her legs which is unchanged Upper extremities move normally without tenderness swelling or laceration Course Course Course Narrative: After initial examination the patient said her right knee was starting to hurt and I lifted the leg and it hurt in the knee but she said it was painful around her hip area to, she does have a pre-existing pelvic fracture and has chronic pain in that area as well I x-ray the right knee and the right hip which showed evidence of old injury and arthritis but no acute fracture no acute injury seen When patient went to transfer to wheelchair she complained that now she has a pain in the back of her right thigh and popliteal, when I re-examined that area there was some mild tenderness and it is possible that she tore either the hamstring or the upper calf muscle partially when she had her fall, there is no swelling or bruising, just the tenderness, as it is acute in onset it is very unlikely to be a DVT Discharge Plan Discharge Clinical Impression: Fall, Osteoarthritis of right knee, Right hamstring muscle strain Patient Disposition: Home, Self-Care Additional Instructions: There is no sign of any injury from your fall so no treatment needed now Your x-rays did not show any acute fractures but did greta some evidence of arthritis When we transferred you to the wheelchair you had some new pain in the back of her thigh and the back of her knee which could be a muscle injury or muscle tear If pain continues follow with physical therapy and possibly a visit to the orthopedist But if you develop worsening pain in the back of the leg or the calf you may need to return for an ultrasound to make sure there is not a developing blood clot Return to the ER any time any worse condition or any concerns Prescriptions: No Action Incruse Ellipta 62.5 mcg/actuation blister with device 1 inh inhalation DAILY famotidine 40 mg tablet 40 mg PO DAILY aripiprazole 30 mg tablet 30 mg PO DAILY hydroxychloroquine 200 mg tablet 200 mg PO BID celecoxib 200 mg capsule 200 mg PO DAILY fluticasone propionate 50 mcg/actuation spray,suspension 1 spray intranasal BID methotrexate sodium 2.5 mg tablet 20 mg PO QWEEK haloperidol 5 mg tablet 5 mg PO BEDTIME Referrals: Gilmer Marcano MD [Physician] - Print Language: Spanish
[2024-02-15 15:06] VITALS: BP 140/80; BP 145/68; PULSE 83; PULSE 87; RESP 18; TEMP 36.6; O2SAT 94; O2SAT 95; BMI 37.4
[2024-02-15 19:27] VITALS: BP 126/56; PULSE 72; RESP 20; TEMP 37.2; O2SAT 98
[2024-02-15 20:03] VITALS: BP 126/56; PULSE 72; RESP 20; TEMP 37.2; O2SAT 98
== END 2024-02-15 20:04 | disposition home or self-care (01) ==
PROVIDERS: Emergency Provider Emergency Medicine; PCP Physician Assistant
DX: S76.911A Strain of unspecified muscles, fascia and tendons at thigh level, right thigh, initial encounter (principal); M17.11 Unilateral primary osteoarthritis, right knee; M25.551 Pain in right hip; W05.0XXA Fall from non-moving wheelchair, initial encounter; Y93.89 Activity, other specified; Y92.89 Other specified places as the place of occurrence of the external cause; Y99.8 Other external cause status; Z79.899 Other long term (current) drug therapy
CPT/HCPCS: 73502; 73562; 99282; 99283

== ENCOUNTER 2024-03-04 10:49 | Outpatient (AMB) | payer MEDICARE, MEDICAID, SELFPAY ==
--- NOTE | 2024-03-04 10:52 | A.OFFVIS_ITS ---
Vital Signs 03/04/24 10:53 Height 5 ft 5 in Weight 225 lb BMI 37.4 Intake Visit Reasons: Right Knee Durolane Injection Intake Note: Amy is a 63 year old female who presents with complaints of progressively worsening right knee pain. She describes her pain as sharp in nature. Her pain has gotten worse over the last year in spite of continued non operative treatments. She has had cortisone injections in the past. The most recent injection gave her only temporary relief. She has not had a viscosupplementation injection. She wishes to hold off on surgery if at all possible. Allergies erythromycin base Allergy (Verified 02/15/24 15:08) Swelling Medication List - Last Reconciled 03/04/24 by Wale Moulton MD aripiprazole 30 mg PO DAILY celecoxib 200 mg PO DAILY famotidine 40 mg PO DAILY fluticasone propionate 50 mcg/actuation 1 spray intranasal BID haloperidol 5 mg PO BEDTIME hydroxychloroquine 200 mg PO BID methotrexate sodium 20 mg PO QWEEK umeclidinium 62.5 mcg/actuation (Incruse Ellipta) 1 inh inhalation DAILY [facility] Medical History COPD (chronic obstructive pulmonary disease) TBI (traumatic brain injury) Physical Exam Vital Signs: BMI result Body Mass Index 37.4 Const Other: Well-nourished well-developed very friendly female awake alert and oriented x3 in no acute distress Extrem Other: Bilateral lower extremity examination shows good capillary refill, no skin lesions noted, normal sensation light touch Right knee examination shows a minimal effusion, palpable crepitus with range of motion, pain with range of motion, no instability Office Procedures Joint Injection/Aspiration Joint Injection/Aspiration Primary Site: right knee Prep: site was prepped using aseptic technique Injected: 60 mg of (Durolane viscosupplementation) and 1% plain lidocaine Procedure: The patient tolerated the procedure well Coding 99909 - Large joint Procedure code (CPT) selection complete Results Reviewed Results Reviewed: X-rays of the patient's right knee taken previously show joint space narrowing, subchondral sclerosis, no acute bony abnormalities Assessment & Plan Assessment & Plan (1) Osteoarthritis of right knee: Code(s): M17.11 - Unilateral primary osteoarthritis, right knee Category: Medical Plan Ms. Fox presents with right knee pain due to degenerative joint disease. I had a lengthy discussion with the patient regarding the treatment options. The risks and benefits of a Durolane viscosupplementation injection were discussed at length with the patient. The patient wished to proceed. She tolerated the injection well. She will continue with her home exercise program. She will follow up with me on an as-needed basis should her symptoms not plateau at an unacceptable level over the next few months. Feel free to call me at any time should questions regarding her orthopedic management arise. I spent 21 minutes in reviewing the patient's records and imaging studies, seeing the patient and documenting in the medical record. Orders: Orders AMB Joint Injection/Aspiration Today M17.11 - Unilateral primary osteoarthritis, right knee Coding Level of Care Code Est Pt Level 3 (27678) Complex EM visit Add On G2211 Diagnoses Osteoarthritis of right knee M17.11 CPT Codes Coding - 01947 Large joint: 36877 - Large joint ([id number])
[2024-03-04 10:53] VITALS: BMI 37.4
== END 2024-03-04 11:18 | disposition home or self-care (01) ==
PROVIDERS: PCP Nurse Practitioner Family; Visit Provider Orthopaedic Surgery
DX: M17.11 Unilateral primary osteoarthritis, right knee (principal)
CPT/HCPCS: 20610; 99213

== ENCOUNTER → 2024-03-04 10:49 | Outpatient (BNVA) | payer MEDICARE, MEDICAID, SELFPAY | PROVIDERS: PCP Nurse Practitioner Family; Visit Provider Orthopaedic Surgery | DX: M17.11 Unilateral primary osteoarthritis, right knee (principal) | CPT/HCPCS: 20610; 99212; J7318 ==

== ENCOUNTER 2024-06-08 10:11 | Outpatient (AMB) | payer MEDICARE, MEDICAID, SELFPAY ==
--- NOTE | 2024-06-08 10:23 | A.OFFVIS_ITS ---
Vital Signs 06/08/24 10:30 Height 5 ft 5 in Weight 225 lb BMI 37.4 Intake Visit Reasons: Right knee pain Intake Note: Amy is a 63 year old female who presents with complaints of progressively worsening right knee pain. She describes her pain as sharp in nature. She has had both cortisone injections and Durolane viscosupplementation injections in the past. She has gotten temporary relief from those injections. She wishes to hold off on surgery for as long as possible. She has done physical therapy exercises which aggravated her pain. She has also tried Tylenol and Celebrex which gave her minimal relief. Allergies erythromycin base Allergy (Verified 06/08/24 10:30) Swelling Medication List - Last Reconciled 06/08/24 by Wale Moulton MD aripiprazole 30 mg PO DAILY celecoxib 200 mg PO DAILY famotidine 40 mg PO DAILY fluticasone propionate 50 mcg/actuation 1 spray intranasal BID haloperidol 5 mg PO BEDTIME hydroxychloroquine 200 mg PO BID methotrexate sodium 20 mg PO QWEEK umeclidinium 62.5 mcg/actuation (Incruse Ellipta) 1 inh inhalation DAILY [facility] Medical History COPD (chronic obstructive pulmonary disease) TBI (traumatic brain injury) Physical Exam Vital Signs: BMI result Body Mass Index 37.4 Const Other: Well-nourished well-developed very friendly female awake alert and oriented x3 in no acute distress Extrem Other: Bilateral lower extremity examination shows good capillary refill, no skin lesions noted, normal sensation light touch Right knee examination shows a minimal effusion, palpable crepitus with range of motion, pain with range of motion, no instability Office Procedures AMB Joint Injection/Aspiration Joint Injection/Aspiration Primary Site: right knee Prep: site was prepped using aseptic technique Injected: 40 mg of, DepoMedrol and 1% plain lidocaine Procedure: The patient tolerated the procedure well Coding 49756 - Large joint Procedure code (CPT) selection complete Results Reviewed Results Reviewed: X-rays of the patient's right knee taken previously show joint space narrowing, subchondral sclerosis, no acute bony abnormalities Assessment & Plan Assessment & Plan (1) Osteoarthritis of right knee: Code(s): M17.11 - Unilateral primary osteoarthritis, right knee Category: Medical (2) Right knee pain: Code(s): M25.561 - Pain in right knee Plan Ms. Fox presents with right knee pain due to osteoarthritis. I had a lengthy discussion with the patient regarding the treatment options. The risks and benefits of a right knee cortisone injection were discussed at length with the patient. The patient wished to proceed. She tolerated the injection well. If she does not get lasting relief from the injection I will see whether or not her insurance company will cover a another Durolane viscosupplementation injection. I will see her back once that injection is available. Feel free to call me at any time should questions regarding her orthopedic management arise. I spent 20 minutes in reviewing the patient's records and imaging studies, seeing the patient and documenting in the medical record. Orders: Orders AMB Joint Injection/Aspiration Today M17.11 - Unilateral primary osteoarthritis, right knee Coding Level of Care Code Est Pt Level 3 (23943) Complex EM visit Add On G2211 Diagnoses Osteoarthritis of right knee M17.11 Right knee pain M25.561 CPT Codes Coding - 58203 Large joint: 84571 - Large joint ([id number])
[2024-06-08 10:30] VITALS: BMI 37.4
== END 2024-06-08 10:52 | disposition home or self-care (01) ==
PROVIDERS: PCP Nurse Practitioner Family; Visit Provider Orthopaedic Surgery
DX: M17.11 Unilateral primary osteoarthritis, right knee (principal)
CPT/HCPCS: 20610; 99213

== ENCOUNTER → 2024-06-08 10:11 | Outpatient (BNVA) | payer MEDICARE, MEDICAID, SELFPAY | PROVIDERS: PCP Nurse Practitioner Family; Visit Provider Orthopaedic Surgery | DX: M17.11 Unilateral primary osteoarthritis, right knee (principal) | CPT/HCPCS: 20610; 99212; J1010; J2003 ==

== ENCOUNTER 2024-08-30 11:19 | Outpatient (AMB) | payer MEDICARE, MEDICAID, SELFPAY ==
--- NOTE | 2024-08-30 11:20 | MHC.OFFVIS ---
Vital Signs 08/30/24 11:21 Height 5 ft 5 in Weight 225 lb BMI 37.4 Intake Visit Reasons: New problem-RT shoulder pain Intake Note: Amy is a 63 year old right hand dominant female who presents with complaints of progressively worsening right shoulder pain and weakness. The patient states that several years ago she suffered a right humerus fracture when she fell. Since that time she has had difficulty lifting her right hand above shoulder height. She has tried physical therapy exercises at home which gave her minimal relief. She has also tried Celebrex and Tylenol which gave her only mild relief. She denies any numbness or tingling in either upper extremity. Allergies erythromycin base Allergy (Verified 08/30/24 11:50) Swelling Medication List - Last Reconciled 08/30/24 by Wale Moulton MD aripiprazole 30 mg PO DAILY celecoxib 200 mg PO DAILY famotidine 40 mg PO DAILY fluticasone propionate 50 mcg/actuation 1 spray intranasal BID haloperidol 5 mg PO BEDTIME hydroxychloroquine 200 mg PO BID methotrexate sodium 20 mg PO QWEEK umeclidinium 62.5 mcg/actuation (Incruse Ellipta) 1 inh inhalation DAILY [facility] Medical History COPD (chronic obstructive pulmonary disease) TBI (traumatic brain injury) Physical Exam Vital Signs: BMI result Body Mass Index 37.4 Const Other: Well-nourished well-developed very friendly female awake alert and oriented x3 in no acute distress Extrem Other: Right shoulder examination shows decreased range of motion when compared to her left shoulder, 4/5 strength with supraspinatus testing, positive impingement signs, no instability Results Reviewed Results Reviewed: X-rays of the patient's right shoulder taken previously show a healed humeral shaft fracture, a type 2 acromion, moderate acromioclavicular joint narrowing Assessment & Plan Assessment & Plan (1) Osteoarthritis of right knee: Code(s): M17.11 - Unilateral primary osteoarthritis, right knee Category: Medical (2) Rotator cuff insufficiency of right shoulder: Code(s): M25.311 - Other instability, right shoulder Category: Medical Plan Ms. Fox presents with right shoulder pain and weakness due to impingement syndrome and possible full-thickness rotator cuff tearing. Thus, I will send the patient for an MRI of her right shoulder for further evaluation. I will see her back once the MRI is completed to discuss the findings and treatment options. Feel free to call me at any time should questions regarding her orthopedic management arise. I spent 20 minutes in reviewing the patient's records and imaging studies, seeing the patient and documenting in the medical record. Orders: Orders PT Evaluation and Treatment Today M17.11 - Unilateral primary osteoarthritis, right knee, M25.811 - Other specified joint disorders, right shoulder MR shoulder RT wo con Today M25.311 - Other instability, right shoulder Coding Level of Care Code Est Pt Level 3 (77935) Complex EM visit Add On G2211 Diagnoses Osteoarthritis of right knee M17.11 Rotator cuff insufficiency of right shoulder M25.311
[2024-08-30 11:21] VITALS: BMI 37.4
== END 2024-08-30 12:21 | disposition home or self-care (01) ==
PROVIDERS: PCP Nurse Practitioner Family; Visit Provider Orthopaedic Surgery
DX: M17.11 Unilateral primary osteoarthritis, right knee (principal); M25.311 Other instability, right shoulder
CPT/HCPCS: 99213; G2211

== ENCOUNTER → 2024-08-30 11:19 | Outpatient (BNVA) | payer MEDICARE, MEDICAID, SELFPAY | PROVIDERS: PCP Nurse Practitioner Family; Visit Provider Orthopaedic Surgery | DX: M25.311 Other instability, right shoulder (principal); M17.11 Unilateral primary osteoarthritis, right knee | CPT/HCPCS: 99212 ==

== ENCOUNTER 2024-10-26 10:11 | Outpatient (RCR) | payer MEDICARE, MEDICAID, SELFPAY | END 2024-11-15 13:41 | disposition home or self-care (01) | LOC: HO.PT 10:11 | PROVIDERS: PCP Physician Assistant; Visit Provider Orthopaedic Surgery | DX: M25.811 Other specified joint disorders, right shoulder (principal); M17.11 Unilateral primary osteoarthritis, right knee | CPT/HCPCS: 97110; 97163 ==

== ENCOUNTER 2024-12-09 13:03 | Outpatient (AMB) | payer MEDICARE, MEDICAID, SELFPAY ==
[2024-12-09 13:05] VITALS: BMI 37.4
--- NOTE | 2024-12-09 13:05 | A.OFFVIS_ITS ---
Vital Signs 12/09/24 13:05 Height 5 ft 5 in Weight 225 lb BMI 37.4 Intake Visit Reasons: Bilateral knee pains Intake Note: Amy is a 64 year old female who presents with complaints of progressively worsening bilateral knee pains. She describes her pains as sharp and severe in nature. She has had cortisone injections given into both of her knees which gave her minimal relief. She has had viscosupplementation injections given into her right knee in the past which gave her good relief. She has not had a viscosupplementation injection given into her left knee. She has taken Tylenol and Celebrex which gave her only mild relief. She wishes to hold off on surgery if at all possible. Allergies erythromycin base Allergy (Verified 12/09/24 13:06) Swelling Medication List - Last Reconciled 12/09/24 by Wale Moulton MD aripiprazole 30 mg PO DAILY celecoxib 200 mg PO DAILY famotidine 40 mg PO DAILY fluticasone propionate 50 mcg/actuation 1 spray intranasal BID haloperidol 5 mg PO BEDTIME hydroxychloroquine 200 mg PO BID methotrexate sodium 20 mg PO QWEEK umeclidinium 62.5 mcg/actuation (Incruse Ellipta) 1 inh inhalation DAILY [facility] Medical History COPD (chronic obstructive pulmonary disease) TBI (traumatic brain injury) Physical Exam Vital Signs: BMI result Body Mass Index 37.4 Const Other: Well-nourished well-developed very friendly female awake alert and oriented x3 in no acute distress Extrem Other: Bilateral lower extremity examination shows good capillary refill, no skin lesions noted, normal sensation light touch Bilateral knee examination shows minimal effusions, palpable crepitus with range of motion, pain with range of motion, no instability Office Procedures AMB Joint Injection/Aspiration Joint Injection/Aspiration Primary Site: right knee Prep: site was prepped using aseptic technique Injected: 60 mg of (Durolane viscosupplementation) and 1% plain lidocaine Procedure: The patient tolerated the procedure well Coding 67488 - Large joint Procedure code (CPT) selection complete Results Reviewed Results Reviewed: X-rays of the patient's bilateral knees taken previously show joint space narrow ing, subchondral sclerosis, no acute bony abnormalities Assessment & Plan Assessment & Plan (1) Osteoarthritis of right knee: Code(s): M17.11 - Unilateral primary osteoarthritis, right knee Category: Medical (2) Osteoarthritis of left knee: Code(s): M17.12 - Unilateral primary osteoarthritis, left knee Category: Medical Plan Ms. Fox presents with bilateral knee pains due to osteoarthritis. The risks and benefits of a right knee Durolane viscosupplementation injection were discussed at length with the patient. The patient wished to proceed. She tolerated the injection well. I will see whether or not the patient's insurance company will cover a Durolane viscosupplementation injection for her left knee as well. I will see her back once the injection is available. Feel free to call me at any time should questions regarding her orthopedic management arise. I spent 21 minutes in reviewing the patient's records and imaging studies, seeing the patient and documenting in the medical record. Orders: Orders AMB Joint Injection/Aspiration Today M17.11 - Unilateral primary osteoarthritis, right knee Coding Level of Care Code Est Pt Level 3 (96256) Complex EM visit Add On G2211 Diagnoses Osteoarthritis of right knee M17.11 Osteoarthritis of left knee M17.12 CPT Codes Coding - 11216 Large joint: 47417 - Large joint ([id number])
--- OUTSIDE RECORDS SUMMARY | 2024-12-09 15:14 | XMS_ITS | Data Portability ---
Author Organization [facility]NA [facility], OFFICE Address [address] [facility], [facility] [address] [place] [address] Assessment Encounter Date Assessment Date Assessment LastModified by Organization Details LastModified Time 03/20/2015 03/20/2015 Louisa, her caregivers and I discussed the options related to her treatment. Clearly right hip arthroplasty would be a reasonable treatment alternative for her. The setting is clearly challenging and her function will only improve to her pre-OA baseline which still required a walker, but it is likely that she would not require the wheelchair much if at all after she recovers. We discussed the issues related to total hip arthroplasty in a lot of detail today including the preoperative process, the operative techniques, less invasive techniques, computer-assisted techniques, the types of implants, the types of bearings, and the perioperative risks. In addition, we discussed the typical hospitalization course following surgery in her specific situation and reasonable expectations for recovery, outcome, activity level, and long-term followup. She is interested in proceeding, and we will begin to make arrangements. sbm Not available 03/20/2015 18:12:50 12/25/2015 12/25/2015 Amy is much improved. She walks with the walker or with an department assistant. Her pain is much decreased. Her hips are similar in length crest to trochanter on xray. Her right leg appears to be shorter below that level. We can use a lift for clinical balance prn. She's going to progress her motion and weight bearing as tolerated within the context of safety. sbm Not available 12/25/2015 10:51:34 Plan of Treatment Reminders Order Date Submit Date Provider Last Modified By Organization Details Last Modified Time Details Appointments None record ed. Lab None record ed. Referral None record ed. Procedures None record ed. Surgeries None record ed. Imaging None record ed. Medication Orders None record ed. Patient TargetsNo targets recorded. Patient InstructionsNo instructions recorded. Reason for Referral None Reported. Problems Name Problem SNOMED Code Status Onset Date Resolution Date Notes Provider Name and Address Organization Details Recorded Time Localized, primary osteoarthritis of the pelvic region and thigh [id number] Active Timmy Lea MD [address], [place], [address], [place] - Comp-Assistd and Rcnstrctive Surgry 6 10:47:12 Problem Notes None recorded. Procedures Surgical History Date Name Laterality Status Provider Name and Address Organization Details Recorded Time 6 Hip Surgery completed Timmy Lea MD [address], [place], [address], [place] - Comp-Assistd and Rcnstrctive Surgry 12/25/2015 10:47:04 Knee Surgery completed Timmy Lea MD [address], [place], [address], [place] - Comp-Assistd and Rcnstrctive Surgry 03/20/2015 18:08:18 General Surgery completed Timmy Lea MD [address], [place], [address], [place] - Comp-Assistd and Rcnstrctive Surgry 03/20/2015 18:08:18 Imaging Results None recorded. Procedure Notes None recorded. Medical Equipment None Reported. Allergies Allergen ID Allergen Name Allergen Category Reaction Reaction Severity Criticality Documentation Date Start Date Code Code System Note Provider Name and Address Organization Details Recorded Time 5230 erythromy marissa medicatio n Not available Not available Not available 03/20/2015 4053 RxNorm Timmy Lea MD [address], [place], [address], [place] - Comp-Assistd and Rcnstrctive Surgry 5 18:08:19 Medications Name Sig Start Date Stop Date Status Note LastModified by Organization Details LastModified Time Miralax 17 gram oral powder packet Take 1 packet(s) PRN. While on pain medicatio n 2015 active manager diabetes, Svetlana Wheeler requested script to be changed to PRN she felt the senna is enough. Patient not having any constipat ion issues. But she wanted to have the PRN status and not D/C Not Available Not Available Not Available celecoxib 200 mg capsule TAKE 2 CAPSULES BY MOUTH THE NIGHT BEFORE SURGERY AND TAKE 1 CAPSULE BY MOUTH THE MORNING OF SURGERY THEN 2015 active Not Available Not Available Not Avai lable senna 8.6 mg tablet TAKE 2 TABLETS BY MOUTH DAILY WHILE ON PAIN MEDICATIO N active Not Available Not Available No t Available prednisone 20 mg tablet active Not Available Not Available Not Available haloperido l 1 mg tablet active Not Available Not Available Not Available triamcinol one acetonide 0.1 % topical cream active Not Available Not Available Not Available cefadroxil 500 mg capsule active Not Available Not Available Not Available oxycodone- acetaminop hen 5 mg-325 mg tablet active Not Available Not Available Not Available methotrexa te sodium 2.5 mg tablet active Not Available Not Available Not Available cephalexin 500 mg capsule active Not Available Not Available Not Available acyclovir 5 % topical ointment active Not Available Not Available Not Available nystatin 100,000 unit/gram topical cream active Not Available Not Available Not Available polymyxin B sulfate 10,000 unit-trime thoprim 1 mg/mL eye drops active Not Available Not Available Not Available omeprazole 20 mg capsule,de layed release active Not Available Not Available Not Available diclofenac sodium 75 mg tablet,del ayed release active Not Available Not Available Not Available mupirocin 2 % topical ointment active Not Available Not Available Not Available warfarin 1 mg tablet Pre op: Starting 7 days prior to surgery take 1 tablet po nightly, Post op: Take as directed, up to 10 tablets, nightly po. active Not Available Not Available No t Available ibuprofen 600 mg tablet active Not Available Not Available Not Available imipramine pamoate 75 mg capsule active Not Available Not Available N ot Available fluticason e propionate 50 mcg/actuat ion nasal spray,susp ension active Not Available Not Available Not Available doxycyclin e hyclate 100 mg tablet active Not Available Not Available Not Available amoxicilli n 875 mg-potassi um clavulanat e 125 mg tablet active Not Available Not Available Not Available oxycodone 5 mg tablet Take 1po every 4hrs active Not Available Not Available No t Available aripiprazo le 30 mg tablet active Not Available Not Available Not Available Spiriva with HandiHaler 18 mcg and inhalation capsules active Not Available Not Available Not Available nitrofuran toin monohydrat e/macrocry stals 100 mg capsule active Not Available Not Available N ot Available Flovent HFA 110 mcg/actuat ion aerosol inhaler active Not Available Not Available Not Available Lyrica 75 mg capsule active Not Available Not Available N ot Available ProAir HFA 90 mcg/actuat ion aerosol inhaler active Not Available Not Available Not Available Pataday 0.2 % eye drops active Not Available Not Available Not Available Myrbetriq 25 mg tablet,ext ended release active Not Available Not Available Not Available Incruse Ellipta 62.5 mcg/actuat ion powder for inhalation active Not Available Not Available N ot Available Vitals Date Recorded Systolic blood pressure Diastolic blood pressure Provider Name and Address Organization Details Last Updated DateTime 12/25/2015 120 mm[Hg] 71 mm[Hg] Timmy Lea MD [address] [facility] [address], [place], [address], [place] - Comp-Assistd and Rcnstrctive Surgry 12/25/2015 10:20:09 Date Recorded Body mass index (BMI) Body height Body weight Provider Name and Address Organization Details Last Updated DateTime 12/25/2015 30 kg/m2 162.56 cm 13792.58092 g Marielena Sesay [place] - Comp-Assistd and Rcnstrctive Surgry 12/25/2015 10:17:22 Date Recorded Systolic blood pressure Diastolic blood pressure Provider Name and Address Organization Details Last Updated DateTime 03/20/2015 109 mm[Hg] 80 mm[Hg] Timmy Lea MD [address] [facility] [address], [place], [address], [place] - Comp-Assistd and Rcnstrctive Surgry 03/20/2015 16:55:39 Date Recorded Body height Body mass index (BMI) Body weight Provider Name and Address Organization Details Last Updated DateTime 03/20/2015 170.18 cm 28.2 kg/m2 74817.6266 g Marielena Sesay [place] - Comp-Assistd and Rcnstrctive Surgry 03/20/2015 16:47:33 Social History None recorded. Functional Status None recorded. Mental Status None recorded. Family History Nothing Reported. Medical History Condition Response Heart Problems N Coronary Artery Disease N Anxiety/Depression Y Gout N Blood Transfusion N Hernia N Migraines N Thyroid Problems N COPD N Pacemaker N Anemia N Heart Attack ([place]) N Ulcers N Diabetes N Bleeding Disorder N Orthotics N Arthritis N Seizures/Epilepsy N Blood Clot N Tuberculosis N AIDS/HIV N Cancer N Stroke N Asthma N Peripheral Vascular Disease N High Cholesterol N Hepatitis N Liver Disease N Rheumatoid Arthritis N Pulmonary Embolism N Hypertension N Osteoporosis N Kidney Disease N Gynecological HistoryNo gynecological history recorded. Obstetrics History GPAL:G 0 P 0 0 0 0 Past Encounters Encounter ID Performer Location Encounter Start Date Encounter Closed Date Diagnosis/Indication Diagnosis SNOMED-CT Code Diagnosis ICD10 Code Diagnosis Note [id number] Timmy Lea MD OFFICE [address] [place] [address] 03/20/2015 16:36:28 03/21/2015 09:49:06 [id number] Timmy Lea MD OFFICE [address], [address] [place] [address] 12/25/2015 10:07:01 12/25/2015 17:53:04 Health Concerns Section Related Observation LastModified by Organization Detai ls LastModified Time None Recorded Concern Status LastModified by Organization Details LastModified Time None Recorded Advance Directives Directive None Recorded Payers Encounter Date Sequence Insurance Name Policy Number Policy Hidalgo Covered Member ID Hidalgo Member ID Guarantor Name 03/20/2015 1 [place] [employer] SERVICES Amy J Ruddy [id number] Amy Ruddy 12/25/2015 1 MEDICARE B-[place]: [facility] [employer] SERVICES Amy J Ruddy [id number] Amy Patelttery Notes Date Note Type Note Provider Name and Address Organization Details Recorded Time 12/25/2015 text/html Hip(s) AthenaReported bypatient.Location:r ight; lateral Severity:mild Alleviating Factors:rest Aggravating Factors:walking Prior Imaging:x ray; CT scan Previous PT:helped significantly Timmy Lea MD [address], [place], [address], [place] - Comp-Assistd and Rcnstrctive Surgry 12/25/2015 10:52:48 OBGyn Episode No OBEpisode recorded.
== END 2024-12-09 13:30 | disposition home or self-care (01) ==
LOC: HO.HOS 13:04
PROVIDERS: PCP Physician Assistant; Visit Provider Orthopaedic Surgery
DX: M17.0 Bilateral primary osteoarthritis of knee (principal)
CPT/HCPCS: 20610; 99213

== ENCOUNTER → 2024-12-09 13:03 | Outpatient (BNVA) | payer MEDICARE, SELFPAY | PROVIDERS: PCP Physician Assistant; Visit Provider Orthopaedic Surgery | DX: M17.0 Bilateral primary osteoarthritis of knee (principal) | CPT/HCPCS: 20610; 99212; J2003; J7318 ==

== ENCOUNTER 2024-12-30 10:30 | Outpatient (AMB) | payer MEDICARE, MEDICAID, SELFPAY ==
[2024-12-30 10:39] VITALS: BMI 37.4
--- NOTE | 2024-12-30 10:39 | MHC.OFFVIS ---
Vital Signs 12/30/24 10:39 Height 5 ft 5 in Weight 225 lb BMI 37.4 Intake Visit Reasons: Inj- Left knee Durolane Inj. Intake Note: Amy is a 64 year old female who presents for a left knee Durolane injection. She describes her left knee pain as sharp in nature. She recently had a Durolane viscosupplementation injection given into her right knee which gave her very good relief. She has had cortisone injections in the past which gave her minimal relief. She has tried Celebrex and Tylenol which gave her minimal relief. Allergies erythromycin base Allergy (Verified 12/30/24 10:39) Swelling Medication List - Last Reconciled 12/30/24 by Wale Moulton MD aripiprazole 30 mg PO DAILY celecoxib 200 mg PO DAILY famotidine 40 mg PO DAILY fluticasone propionate 50 mcg/actuation 1 spray intranasal BID haloperidol 5 mg PO BEDTIME hydroxychloroquine 200 mg PO BID methotrexate sodium 20 mg PO QWEEK umeclidinium 62.5 mcg/actuation (Incruse Ellipta) 1 inh inhalation DAILY [facility] Medical History COPD (chronic obstructive pulmonary disease) TBI (traumatic brain injury) Physical Exam Vital Signs: BMI result Body Mass Index 37.4 Extrem Other: Left knee examination shows a minimal effusion, palpable crepitus with range of motion, pain with range of motion, no instability Office Procedures AMB Joint Injection/Aspiration Joint Injection/Aspiration Primary Site: left knee Prep: site was prepped using aseptic technique Injected: 60 mg of (Durolane viscosupplementation) and 1% plain lidocaine Procedure: The patient tolerated the procedure well Coding 28039 - Large joint Procedure code (CPT) selection complete Results Reviewed Results Reviewed: X-rays of the patient's left knee show joint space narrowing, subchondral sclerosis, no acute bony abnormalities Assessment & Plan Assessment & Plan (1) Osteoarthritis of left knee: Code(s): M17.12 - Unilateral primary osteoarthritis, left knee Category: Medical Plan Ms. Fox presents with left knee pain due to osteoarthritis. The risks and benefits of a left knee Durolane injection were discussed at length with the patient. The patient wished to proceed. She tolerated the injection well. She will continue with her home exercise program. She will contact me prior to her follow-up appointment in 3 months should any questions or concerns arise. Feel free to call me at any time should questions regarding her orthopedic management arise. I spent 22 minutes in reviewing the patient's records and imaging studies, seeing the patient and documenting in the medical record. Orders: Orders AMB Joint Injection/Aspiration Today M17.12 - Unilateral primary osteoarthritis, left knee Coding Level of Care Code Est Pt Level 3 (89182) Complex EM visit Add On G2211 Diagnoses Osteoarthritis of left knee M17.12 CPT Codes Coding - 90690 Large joint: 87507 - Large joint ([id number])
--- OUTSIDE RECORDS SUMMARY | 2024-12-30 12:18 | XMS_ITS | Data Portability ---
Author Organization [facility], OFFICE Address [address] [facility] [address] [place] [address] Assessment Encounter Date Assessment Date Assessment LastModified [...] walks with the walker or with an emergency veterinary assistant. Her pain is much decreased. Her [...] osteoarthritis of the pelvic region and thigh [id number] Active Timmy Lea MD [address], [place], [address], [place] - Comp-Assistd and Rcnstrctive Surgry 6 10:47:12 Problem Notes None recorded. Procedures Surgical History Date Name Laterality Status Provider Name and Address Organization Details Recorded Time 6 Hip Surgery completed Timmy Lea MD [address], [place], [address], [place] - Comp-Assistd and Rcnstrctive Surgry 12/25/2015 10:47:04 Knee Surgery completed Timmy Lea MD [address], [place], [address], [place] - Comp-Assistd and Rcnstrctive Surgry 03/20/2015 18:08:18 General Surgery completed Timmy Lea MD [address], [place], [address], [place] - Comp-Assistd and Rcnstrctive Surgry [...] Lea MD [address], [place], [address], [place] - Comp-Assistd and Rcnstrctive Surgry 5 18:08:19 Medications Name Sig Start Date Stop Date Status Note LastModified by Organization Details LastModified Time Miralax 17 gram oral powder packet Take 1 packet(s) PRN. 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 Wheeler requested script to be changed [...] mm[Hg] 71 mm[Hg] Timmy Lea MD [address] [facility] [address], [place], [address], [place] - Comp-Assistd and Rcnstrctive Surgry 12/25/2015 10:20:09 Date Recorded Body mass index (BMI) Body height Body weight Provider Name and Address Organization Details Last Updated DateTime 12/25/2015 30 kg/m2 162.56 cm 91391.58838 g Marielena Sesay [place] - Comp-Assistd and Rcnstrctive Surgry 12/25/2015 10:17:22 Date Recorded Systolic blood pressure Diastolic blood pressure Provider Name and Address Organization Details Last Updated DateTime 03/20/2015 109 mm[Hg] 80 mm[Hg] Timmy Lea MD [address] [place] [address],[facility] [address], [place], [address], [place] - Comp-Assistd and Rcnstrctive Surgry 03/20/2015 16:55:39 Date Recorded Body height Body mass index (BMI) Body weight Provider Name and Address Organization Details Last Updated DateTime 03/20/2015 170.18 cm 28.2 kg/m2 80008.6266 g Marielena Sesay [place] - Comp-Assistd and Rcnstrctive Surgry 03/20/2015 16:47:33 Social History None recorded. Functional Status None recorded. Mental Status None recorded. Family History Nothing Reported. Medical History Condition Response Heart Problems N Coronary Artery Disease N Gout N Anxiety/Depression Y Blood Transfusion N Hernia N Migraines N [...] SNOMED-CT Code Diagnosis ICD10 Code Diagnosis Note [id number] Timmy Lea MD OFFICE [address] [place] [address] 03/20/2015 16:36:28 03/21/2015 09:49:06 [id number] Timmy Lea MD OFFICE [address] [place] [address] 12/25/2015 10:07:01 12/25/2015 17:53:04 Health Concerns Section Related Observation LastModified by Organization Detai ls LastModified Time None Recorded Concern Status LastModified by Organization Details LastModified Time None Recorded Advance Directives Directive None Recorded Payers Insurance Date Sequence Insurance Name Policy Number Policy Hidalgo Covered Member ID Hidalgo Member ID Guarantor Name 08/30/2016 1 [place]ICARE B-[place]: [employer] SERVICES Amy Shon [facility] [id number] Amy [facility] 08/30/2016 2 MEDICAID-ID: [id number] Amy Ruddy Notes Date Note Type Note Provider Name and Address Organization Details Recorded Time 12/25/2015 text/html Hip(s) AthenaReported bypatient.Location:r ight; lateral Severity:mild Alleviating Factors:rest Aggravating Factors:walking Prior Imaging:x ray; CT scan Previous PT:helped significantly Timmy Lea MD [address], [place], [address], [place] - Comp-Assistd and Rcnstrctive Surgry 12/25/2015 10:52:48 OBGyn Episode No OBEpisode recorded.
== END 2024-12-30 11:14 | disposition home or self-care (01) ==
LOC: HO.HOS 10:30
PROVIDERS: PCP Physician Assistant; Visit Provider Orthopaedic Surgery
DX: M17.12 Unilateral primary osteoarthritis, left knee (principal)
CPT/HCPCS: 20610; 99213

== ENCOUNTER → 2024-12-30 10:30 | Outpatient (BNVA) | payer MEDICARE, MEDICAID, SELFPAY | PROVIDERS: PCP Physician Assistant; Visit Provider Orthopaedic Surgery | DX: M17.12 Unilateral primary osteoarthritis, left knee (principal) | CPT/HCPCS: 20610; 99212; J2003; J7318 ==

== ENCOUNTER 2025-01-13 07:02 | Emergency (ER) | payer MEDICARE, MEDICAID, SELFPAY ==
--- NOTE | ~2025-01-13 | XR_ITS ---
CLINICAL HISTORY: dyspnea Chest radiograph AP view Comparison: None Findings: Suboptimal rotated frontal view. The cardiac contour is probably mildly enlarged. Mild hypoinflation, peribronchial thickening noted, no consolidation, pleural effusion or pneumothorax. No acute fracture. Chest wall soft tissue demonstrates nothing unusual. Impression: 1. Bronchial wall thickening. 2. Probable cardiomegaly. This document has been electronically signed by: Parul Pastor MD on 01/13/2025 08:03:17
--- NOTE | 2025-01-13 07:08 | ECG_ITS ---
Test Reason : SOB Blood Pressure : */* mmHG Vent. Rate : 78 BPM Atrial Rate : 78 BPM P-R Int : 166 ms QRS Dur : 106 ms QT Int : 390 ms P-R-T Axes : 19 10 51 degrees QTcB Int : 444 ms Normal sinus rhythm Cannot rule out Anterior infarct , age undetermined Abnormal ECG No previous ECGs available Referred By: Generic ED Physician Electronically Signed By: Bonifacio Vogt
[2025-01-13 07:11] VITALS: BP 150/70; BP 151/77; PULSE 80; RESP 21; TEMP 36.8; O2SAT 93; BMI 39.0
--- NOTE | 2025-01-13 07:28 | ED.GENADULT ---
HPI - General Adult General Chief complaint: Dyspnea Stated complaint: productive cough, 88%on room air Time Seen by Provider: 01/13/25 07:27 Source: patient Mode of arrival: ambulatory Limitations: no limitations History of Present Illness ED Provider: DR. Alvarez HPI narrative: A 64-year-old female history of TBI and COPD, no smoking history. brought in from [facility] for evaluation of cough, dark sputum, shortness of breath, no fever, no chills, no other sick contacts, no recent travel, no lower extremity swelling tenderness. No chest pain, no recent travel. Patient was fine by EMS satting at 88% on room air was placed on 2 L via nasal cannula O2 sat was corrected to 93%. Related Data Home Medications ?Medication ?Instructions ?Recorded ?Confirmed aripiprazole 30 mg tablet 30 mg PO DAILY 09/23/23 12/30/24 celecoxib 200 mg capsule 200 mg PO DAILY 09/23/23 12/30/24 famotidine 40 mg tablet 40 mg PO DAILY 09/23/23 12/30/24 fluticasone propionate 50 1 spray intranasal BID 09/23/23 12/30/24 mcg/actuation nasal spray,suspension haloperidol 5 mg tablet 5 mg PO BEDTIME 09/23/23 12/30/24 hydroxychloroquine 200 mg tablet 200 mg PO BID 09/23/23 12/30/24 methotrexate sodium 2.5 mg tablet 20 mg PO QWEEK 09/23/23 12/30/24 umeclidinium 62.5 mcg/actuation 1 inh inhalation DAILY 09/23/23 12/30/24 blister powder for inhalation (Incruse Ellipta) Previous Rx's ?Medication ?Instructions ?Recorded albuterol sulfate 90 mcg/actuation 2 inh inhalation Q6H PRN shortness 01/13/25 breath activated powder inhaler of breath or wheezing #1 ea (ProAir RespiClick) doxycycline hyclate 100 mg tablet 100 mg PO BID #14 tabs 01/13/25 prednisone 20 mg tablet 20 mg PO BID #10 tabs 01/13/25 Allergies Allergy/AdvReac Type Severity Reaction Status Date / Time erythromycin base Allergy Swelling Verified 01/13/25 07:14 Review of Systems Review of Systems: All other systems are reviewed and are negative Constitutional: Reports as per HPI and Reports no additional constitutional complaints Eyes: Reports as per HPI and Reports no additional eye complaints Reports system reviewed and no additional complaints, except as documented Cardiovascular: Reports as per HPI and Reports no additional cardiovascular complaints Respiratory: Reports as per HPI and Reports no additional respiratory complaints Gastrointestinal: Reports as per HPI and Reports no additional gastrointestinal complaints Genitourinary: Reports no additional female genitourinary complaints Musculoskeletal: Reports no additional musculoskeletal complaints Skin/Breast: Reports system reviewed and no additional complaints, except as docu Psychiatric: Reports no additional psychiatric complaints Endocrine: Reports no additional endocrine complaints Hematologic/Lymphatic: Reports no additional hematologic/lymphatic complaints Allergic/Immunologic: Reports no additional allergic/immunologic complaints Reports system reviewed and no additional complaints, except as documented and Reports Abnormal speech present [facility] Past Medical History Medical History COPD (chronic obstructive pulmonary disease) TBI (traumatic brain injury) Social History Social History Smoked in Last 30 Days: No Use of substances other than those prescribed or required for medical reasons: No Advance Directives: No Advance Directives Information Provided: Yes Physical Exam ED Vital Signs: Vital Signs - 24 hr 01/13/25 07:11 01/13/25 08:14 01/13/25 08:52 Temperature 98.2 F 98.2 F Pulse Rate 80 79 79 Respiratory Rate 21 H 17 23 H Blood Pressure 151/77 H 164/89 H Pulse Oximetry 93 95 Oxygen Delivery Method Room Air Room Air 01/13/25 09:28 Temperature 97.5 F Pulse Rate 97 Respiratory Rate 16 Blood Pressure 166/61 H Pulse Oximetry 95 Oxygen Delivery Method Room Air BMI result Body Mass Index 39.0 Vital signs have been reviewed and appear to be correct. Blood pressure elevated. Heart rate normal. Respiratory rate normal. Temperature normal. Oxygen saturation normal. Appearance: Alert. Oriented X3. No acute distress. Head: Normal external exam. Normocephalic. Atraumatic. No Ramirez signs noted. No raccoon eyes noted Eyes: PERRLA. EOMI. Conjunctiva and sclera normal. Eyelids normal. ENT: TM's Normal. Pharynx normal. Uvula midline. Moist mucous membranes. No trismus noted. No drooling noted. No muffled voice noted. Neck: Normal inspection. Neck supple. FROM. No adenopathy. Thyroid Normal. No meningeal signs. No neck mass noted. CVS: Normal heart rate and rhythm. Heart sound normal. No murmurs noted. Pulses normal throughout. Respiratory: No respiratory distress. Painless inspiration. Breath sounds normal. No wheezes/rales/rhonchi noted. Chest nontender. No accessory muscle usage noted or decreased air movement noted. Abdomen: Soft and nontender. Bowel sounds normal in all 4 quadrants. No distention noted. No organomegaly noted. No visible injury noted. Back: No CVA tenderness. Full range of motion noted. Skin: Skin warm and dry. Normal skin color. Normal skin turgor. No rashes/lesions/lacerations noted. Extremities: No lower extremity edema. Extremities exhibit normal range of motion. Extremities nontender. Neuro: Oriented X 3. Cranial nerve exam: II-XII are grossly intact No motor deficit. No sensory deficit. Reflexes normal. Course Reevaluation(s) Reevaluation #1: Patient feels better after bronchodilator, never hypoxic in the ED, no respiratory distress, chest x-ray is consistent with bronchial wall thickening/bronchitis. Patient feels better, wants to be discharged home. Will discharge on bronchodilator, short course prednisone, and doxycycline. Time: 09:28 Medications Administered Discontinued Medications Generic Name Dose Route Start Last Admin Trade Name Sydnee PRN Reason Stop Dose Admin Ceftriaxone Sodium 1 gm 01/13/25 07:27 01/13/25 08:25 Ceftriaxone Sodium 1 Gm Vial IVPUSH 01/13/25 07:28 1 gm ONCE ONE Administration Albuterol Sulfate 2.5 mg/ 0 mg 01/13/25 08:44 01/13/25 08:51 Albuterol/Ipratropium 3 ml INHALE 01/13/25 08:45 1 dose ONCE ONE Administration Doxycycline Monohydrate 100 mg 01/13/25 09:31 01/13/25 09:36 Doxycycline Monohydrate 100 Mg Capsule PO 01/13/25 09:32 100 mg ONCE ONE Administration Sodium Chloride 1,000 mls @ 999 mls/hr 01/13/25 07:27 01/13/25 09:31 Ns IV 01/13/25 08:27 Infused .Q1H1M ONE Infusion Methylprednisolone Sodium Succinate 125 mg 01/13/25 08:15 01/13/25 08:25 Methylprednisolone Sod Succ 125 Mg/2 Ml Vial IVPUSH 01/13/25 08:16 125 mg ONCE ONE Administration Medical Decision Making Differential Diagnosis Differential Diagnoses: The differential diagnosis associated with the presentation includes (Pneumonia, pneumothorax, pleural effusion, asthma exacerbation, severe anemia, electrolyte derangement.) Admission/Observation Consideration of admission/observation: Escalation of care including admission/observation considered Lab Data MDM Lab Attestation statement: I reviewed the patient's lab results. 01/13/25 07:36 01/13/25 07:36 Labs: Lab Results 01/13/25 01/13/25 Range/Units 07:36 08:11 WBC 11.0 H (4.8-10.8) X10*3/uL RBC 4.06 L (4.20-5.50) X10*6/uL Hgb 11.7 L (12.0-16.0) g/dl Hct 35.7 L (37.0-47.0) % MCV 87.9 (80.0-98.0) fL MCH 28.8 (27.0-33.0) pg MCHC 32.8 (31.0-35.0) g/dl RDW 15.2 (11.0-16.0) % Plt Count 407 H (160-400) X10*3/uL MPV 9.1 L (9.4-12.3) fL Immature Gran % (Auto) 0.4 (0.0-0.4) % Neut % (Auto) 70.0 (45-73) % Lymph % (Auto) 14.2 L (20-40) % Wilkin % (Auto) 9.4 (2-11) % Eos % (Auto) 5.4 H (0-4) % Baso % (Auto) 0.6 (0-2) % Lymph # (Auto) 1.6 (1.2-4.9) X10*3/uL Wilkin # (Auto) 1.0 (0.1-1.2) X10*3/uL Eos # (Auto) 0.6 H (0.0-0.4) X10*3/uL Baso # (Auto) 0.1 (0.0-0.2) X10*3/uL Abs Immat Gran (auto) 0.04 H (0.00-0.03) X10*3/uL Absolute Neuts (auto) 7.7 (2.0-8.3) x10*3/uL Absolute Nucleated RBC 0.000 (0.0-0.012) X10*3/uL Nucleated RBC % (auto) 0.0 (0.0-0.2) /100WBC Sodium 139 (135-145) mmol/L Potassium 4.4 (3.3-5.1) mmol/L Chloride 108 (96-108) mmol/L Carbon Dioxide 22 (22-29) mmol/L Anion Gap 13 (12-20) BUN 20 H (9-16) mg/dL Creatinine 0.65 (0.5-1.4) mg/dL Estim Creat Clear Calc 100.8 Estimated GFR > 60 Random Glucose 101 (60-115) mg/dL Lactic Acid 1.3 (0.5-2.0) mmol/L Calcium 9.0 (8.4-10.2) mg/dL Total Bilirubin 0.2 (0.0-1.0) mg/dL AST 24 (5-31) U/L ALT 13 (0-31) U/L Alkaline Phosphatase 105 (39-117) U/L Total Protein 7.1 (6.5-8.0) g/dL Albumin 3.4 L (3.5-5.0) g/dL Influenza Type A (PCR) NEGATIVE (Negative) Influenza Type B (PCR) NEGATIVE (Negative) RSV RNA Qual (PCR) NEGATIVE (Negative) SARS-CoV-2 RNA (RT-PCR) NEGATIVE (Negative) Independent Interpretation I performed an independent interpretation of an: Plain X-Ray (Chest:1. Bronchial wall thickening. 2. Probable cardiomegaly.) Radiology Impression Discussion of test interpretation with radiology: I have reviewed the radiologist's reading. Discharge Plan Discharge Clinical Impression: Bronchitis Patient Disposition: Home, Self-Care Instructions: Acute Bronchitis (ED) Prescriptions: New prednisone 20 mg tablet 20 mg PO BID Qty: 10 0RF doxycycline hyclate 100 mg tablet 100 mg PO BID Qty: 14 0RF ProAir RespiClick 90 mcg/actuation aerosol powdr breath activated 2 inh inhalation Q6H PRN (Reason: shortness of breath or wheezing) Qty: 1 0RF No Action Incruse Ellipta 62.5 mcg/actuation blister with device 1 inh inhalation DAILY famotidine 40 mg tablet 40 mg PO DAILY aripiprazole 30 mg tablet 30 mg PO DAILY hydroxychloroquine 200 mg tablet 200 mg PO BID celecoxib 200 mg capsule 200 mg PO DAILY fluticasone propionate 50 mcg/actuation spray,suspension 1 spray intranasal BID methotrexate sodium 2.5 mg tablet 20 mg PO QWEEK haloperidol 5 mg tablet 5 mg PO BEDTIME Print Language: Faroese
[2025-01-13 07:44] LABS: MANUAL DIFF FLAG NO
[2025-01-13 07:50] LABS: Hematocrit 35.7 % (37.0-47.0); Hemoglobin 11.7 g/dl (12.0-16.0); Imm Gran Abs Auto 0.04 X10*3/uL (0.00-0.03); Imm Gran Pct Auto 0.4 % (0.0-0.4); Lymphocytes Absolute Auto 1.6 X10*3/uL (1.2-4.9); Mean Corpuscular HGB Conc 32.8 g/dl (31.0-35.0); Mean Corpuscular Hemoglobin 28.8 pg (27.0-33.0); Mean Corpuscular Volume 87.9 fL (80.0-98.0); NRBC Abs Auto 0.000 X10*3/uL (0.0-0.012); NRBC Pct Auto 0.0 /100WBC (0.0-0.2); Platelet Count 407 X10*3/uL (160-400); Red Blood Count 4.06 X10*6/uL (4.20-5.50); White Blood Count 11.0 X10*3/uL (4.8-10.8)
--- OUTSIDE RECORDS SUMMARY | 2025-01-13 07:50 | XMS_ITS | Data Portability ---
Author Organization [facility], OFFICE Address [address] [facility], [facility] [address] [place] [phone] Assessment Encounter Date Assessment Date Assessment LastModified [...] walks with the walker or with an assistant store manager operations. Her pain is much decreased. Her hips [...] osteoarthritis of the pelvic region and thigh [id number] Active Timmy Lea MD [address], [place], [address], [place] - Comp-Assistd and Rcnstrctive Surgry 6 10:47:12 Problem Notes None recorded. Procedures Surgical History Date Name Laterality Status Provider Name and Address Organization Details Recorded Time 6 Hip Surgery completed Timmy Lea MD [address], [place], [address], [place] - Comp-Assistd and Rcnstrctive Surgry 12/25/2015 10:47:04 Knee Surgery completed Timmy Lea MD [address], [place], [address], [place] - Comp-Assistd and Rcnstrctive Surgry 03/20/2015 18:08:18 General Surgery completed Timmy Lea MD [address], [place], [address], [place] - Comp-Assistd and Rcnstrctive Surgry [...] Lea MD [address], [place], [address], [place] - Comp-Assistd and Rcnstrctive Surgry 5 18:08:19 Medications Name Sig Start Date Stop Date Status Note LastModified by Organization Details LastModified Time Miralax 17 gram oral powder packet Take 1 packet(s) PRN. 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, Svetlana Wheeler requested script to be changed [...] N ot Available Vitals Date Recorded Systolic And Diastolic Provider Name and Address Organization Details Last Updated DateTime 12/25/2015 120/71 mm[Hg] Timmy Lae MD [address] [place] [address],[facility] [address] [place] [address], [address], [place] - Comp-Assistd and Rcnstrctive Surgry 12/25/2015 10:20:09 Date Recorded Body mass index (BMI) Body height Body weight Provider Name and Address Organization Details Last Updated DateTime 12/25/2015 30 kg/m2 162.56 cm 25775.99944 g Marielena Sesay [place] - Comp-Assistd and Rcnstrctive Surgry 12/25/2015 10:17:22 Date Recorded Systolic And Diastolic Provider Name and Address Organization Details Last Updated DateTime 03/20/2015 109/80 mm[Hg] Timmy Lea MD [address] [place] [address],[facility] [address], [address], [place] - Comp-Assistd and Rcnstrctive Surgry 03/20/2015 16:55:39 Date Recorded Body height Body mass index (BMI) Body weight Provider Name and Address Organization Details Last Updated DateTime 03/20/2015 170.18 cm 28.2 kg/m2 84855.6266 g Marielena Sesay [place] - Comp-Assistd and Rcnstrctive Surgry 03/20/2015 16:47:33 Social History None recorded. Functional Status None recorded. Mental Status None recorded. Family History Nothing Reported. Medical History Condition Response Heart Problems N Coronary Artery Disease N Anxiety/Depression Y Gout N Blood Transfusion N Hernia N Migraines N Thyroid Problems N COPD N Pacemaker N Anemia N Heart Attack (ID) N Ulcers N Diabetes N Bleeding Disorder [...] SNOMED-CT Code Diagnosis ICD10 Code Diagnosis Note [id number] Timmy Lea MD OFFICE [address] [place] [address] 03/20/2015 16:36:28 03/21/2015 09:49:06 [id number] Timmy Lea MD OFFICE [address] [place] [address] 12/25/2015 10:07:01 12/25/2015 17:53:04 Health Concerns Section Related Observation LastModified by Organization Detai ls LastModified Time None Recorded Concern Status LastModified by Organization Details LastModified Time None Recorded Advance Directives Directive None Recorded Payers Insurance Date Sequence Insurance Name Policy Number Policy Hidalgo Covered Member ID Hidalgo Member ID Guarantor Name 08/30/2016 1 [place] B[place] [employer] Amy J Ruddy [id number] Amy [facility] 08/30/2016 2 [place] [facility] [id number] Amy Ruddy Notes Date Note Type Note Provider Name and Address Organization Details Recorded Time 12/25/2015 text/html Hip(s) AthenaReported bypatient.Location:r ight; lateral Severity:mild Alleviating Factors:rest Aggravating Factors:walking Prior Imaging:x ray; CT scan Previous PT:helped significantly Timmy Lea MD [address], [place], [address], [place] - Comp-Assistd and Rcnstrctive Surgry 12/25/2015 10:52:48 OBGyn Episode No OBEpisode recorded.
[2025-01-13 08:03] LABS: Alanine Aminotransferase 13 U/L (0-31); Albumin Level 3.4 g/dL (3.5-5.0); Alkaline Phosphatase 105 U/L (39-117); Anion Gap 13 (12-20); Aspartate Amino Transferase 24 U/L (5-31); Blood Urea Nitrogen 20 mg/dL (9-16); Calcium 9.0 mg/dL (8.4-10.2); Carbon Dioxide 22 mmol/L (22-29); Chloride 108 mmol/L (96-108); Creatinine Clr Calc Pharmacy 100.8; Estimated Glomerular Filt Rate > 60; Potassium 4.4 mmol/L (3.3-5.1); Sodium 139 mmol/L (135-145); Total Protein 7.1 g/dL (6.5-8.0)
[2025-01-13 08:14] VITALS: BP 164/89; PULSE 79; RESP 17; TEMP 36.8; O2SAT 95
[2025-01-13] MEDS: Albuterol Sulfate 2.5 MG, Albuterol/Iprat 2.5/0.5MG 3 ML 3 ML INHALE (08:51)
[2025-01-13 08:52] VITALS: PULSE 79; RESP 23; O2SAT 95
[2025-01-13 09:01] LABS: Resp Syncy Virus RNA Qual PCR NEGATIVE (Negative); SARS COV2 PCR INHOUSE NEGATIVE (Negative)
[2025-01-13 09:28] VITALS: BP 166/61; PULSE 97; RESP 16; TEMP 36.4; O2SAT 95
[2025-01-13 10:35] VITALS: BP 166/61; PULSE 97; RESP 16; TEMP 36.4; O2SAT 95
== END 2025-01-13 10:36 | disposition home or self-care (01) ==
PROVIDERS: Emergency Provider Emergency Medicine
DX: R06.02 Shortness of breath (principal); J40 Bronchitis, not specified as acute or chronic; J44.9 Chronic obstructive pulmonary disease, unspecified; Z03.818 Encounter for observation for suspected exposure to other biological agents ruled out; R05.9 Cough, unspecified
CPT/HCPCS: 36415; 71045; 80053; 83605; 85025; 87040; 87637; 93005; 94640; 96361; 96374; 96375; 99284; 99285; J0696; J2919

== ENCOUNTER → 2025-01-13 07:08 | Outpatient (BNV) | payer MEDICARE, MEDICAID, SELFPAY | PROVIDERS: Emergency Provider Emergency Medicine; Visit Provider Internal Medicine Cardiovascular Disease | DX: R94.31 Abnormal electrocardiogram [ECG] [EKG] (principal); R06.02 Shortness of breath | CPT/HCPCS: 93010 ==

== ENCOUNTER → 2025-01-13 07:08 | Outpatient (BNV) | payer MEDICARE, MEDICAID, SELFPAY | PROVIDERS: Emergency Provider Emergency Medicine; Visit Provider Radiology Diagnostic Radiology | DX: J98.09 Other diseases of bronchus, not elsewhere classified (principal) | CPT/HCPCS: 71045 ==

== ENCOUNTER 2025-05-13 06:41 | Observation (INO) | payer MEDICARE, MEDICAID, SELFPAY ==
[2025-05-13] VITALS (12 sets, daily range): BP systolic 97–188; BP diastolic 53–87; PULSE 79–97; RESP 14–20; TEMP 36.2–36.8; O2SAT 93–98; BMI 39.0; BMI 40.6
--- NOTE | 2025-05-13 | ECG_ITS ---
Test Reason : chest pain Blood Pressure : */* mmHG Vent. Rate : 80 BPM Atrial Rate : 80 BPM P-R Int : 172 ms QRS Dur : 106 ms QT Int : 392 ms P-R-T Axes : 25 2 40 degrees QTcB Int : 452 ms Normal sinus rhythm Minimal voltage criteria for LVH, may be normal variant ( Noel product ) Nonspecific ST abnormality Abnormal ECG When compared with ECG of 13-Jan-2025 07:10, No significant change was found Referred By: Generic ED Physician Electronically Signed By: Bonifacio Vogt
--- NOTE | ~2025-05-13 | CT_ITS ---
EXAMINATION: CT HEAD WITHOUT CONTRAST CLINICAL INFORMATION: Fall COMPARISON: January 04, 2024 TECHNIQUE: Contiguous axial imaging was performed from the skull base to vertex without intravenous administration of contrast. This CT examination was performed using dose optimization techniques as appropriate, variously including the following: *Automated exposure control *Adjustment of mA and/or kV according to patient size (this includes techniques or standardized protocols for targeted exams where dose is matched to indication/reason for exam; i.e. extremities or head) *Use of iterative reconstruction technique FINDINGS: There is no acute ischemic change. There is no intracranial hemorrhage. There is no mass-effect or midline shift. Basal cisterns and ventricles are within normal limits for age/cerebral volume. Orbits are symmetrical and unremarkable. Paranasal sinuses and mastoid air cells are pneumatized. There are no bony abnormalities. CT/CT head/brain wo IV con IMPRESSION: No acute intracranial abnormality. Electronically signed by: Rod Garcia MD 05/13/2025 10:21 AM [facility]
--- NOTE | ~2025-05-13 | CT_ITS ---
EXAMINATION: CT CHEST WITHOUT IV CONTRAST INDICATION: Fall COMPARISON: There are no prior studies available for comparison. TECHNIQUE: Helical CT scan of the chest was performed without intravenous contrast. Coronal and sagittal reformatted images were generated and reviewed. This CT exam was performed with one or more of the following dose reduction techniques: automated exposure control, adjustment of the mA and/or kV according to patient size, use of iterative reconstruction technique. DLP: 633 mGy-cm CHEST: THYROID: The thyroid is unremarkable. LUNGS: There is respiratory motion artifact. There is dependent atelectasis at the lung bases. There is an 8 mm nodule in the right lower lobe (series 26, image 80) and an 8 mm nodule at the right lung base (series 26, image 111). MEDIASTINUM: There is a 12 mm paratracheal lymph node. BRAXTON: Evaluation of the hilar regions is limited by lack of intravenous contrast material. CARDIOVASCULATURE: The heart is mildly enlarged. There is no pericardial effusion. The thoracic aorta is normal in caliber. DEGREE OF CORONARY CALCIFICATION: moderate PLEURA: There is no pleural effusion. No pneumothorax. MAIN AIRWAYS: The mainstem bronchi and proximal branches are patent. AXILLA: There is no axillary lymphadenopathy. BONES AND SOFT TISSUES: The bones are intact. UPPER ABDOMEN: The visualized portions of the liver, spleen, and adrenals have an unremarkable unenhanced appearance. There is a lobulated mass in the region of the tail of the pancreas measuring 3.5 x 2.[address]/CT chest wo IV con IMPRESSION: 1. No evidence of traumatic injury to the chest. 2. 3.5 x 2.3 x 2.4 cm lobulated mass in the region of the pancreatic tail. Nonemergent pancreatic MRI is recommended. 3. Right lower lobe pulmonary nodules as described. Six-month follow-up chest CT is recommended per Fleischner Society guidelines below. Fleischner Criteria for pulmonary nodule follow-up SOLID NODULES: Low risk patient: <6mm: no follow-up 6-8mm: 6 month follow-up CT >8mm: PET/Biopsy/ 3 month follow-up CT High risk patient: <6mm: 12 month follow-up CT 6-8mm: 6 month follow-up CT >8mm: PET/Biopsy/ 3 month follow-up CT SUB-SOLID/GROUNDGLASS NODULES: All patients: > or = 6mm: 6 month follow-up CT *Please note that in patients in the following categories, the Fleischner criteria do not apply: Immunocompromised, lung cancer screening population, age below 35, and patients with known malignancy Electronically signed by: Mann Heard MD 05/13/2025 10:24 AM [facility]
--- NOTE | ~2025-05-13 | XR_ITS ---
EXAMINATION: XR CHEST CLINICAL INFORMATION: chest pain COMPARISON: 01/13/2025. TECHNIQUE: AP portable view of the chest was obtained. FINDINGS: Patient is mildly right rotated. Mild prominence of the cardiac silhouette. Mediastinal and hilar contours appear normal. Mild aortic mural calcifications. The lungs appear grossly clear bilaterally. No pneumothorax or effusion. No focal osseous or soft tissue abnormality. XR/XR chest 1V IMPRESSION: No active pulmonary disease. No significant interval change from 01/13/2025. Electronically signed by: Saravanan Ramos MD 05/13/2025 08:27 AM [facility]
--- NOTE | ~2025-05-13 | US_ITS ---
CLINICAL HISTORY: history of dvt, still swollen painful Right lower extremity duplex venous Doppler Comparison: None Technique: Grayscale/Color/Duplex Doppler sonographic evaluation of the deep venous system within the right lower extremity. Findings: Right lower extremity Common femoral vein: Patent CFV/GSV junction: Patent Femoral vein: Patent Popliteal vein: Patent Infrapopliteal veins: Patent where seen Soft tissue: No focal abnormality Impression: 1. Negative for right lower extremity DVT. 2. No Branham's cyst This document has been electronically signed by: Piter Cuba MD on 05/14/2025 10:07:49
--- NOTE | ~2025-05-13 | XR_ITS ---
EXAMINATION: XR KNEE, RIGHT CLINICAL INFORMATION: fall COMPARISON: X-ray 02/15/2024 TECHNIQUE: Four views of the right knee. FINDINGS: Bone mineralization is decreased. As seen on the prior radiograph, there is remodeling deformity consistent with a healed distal femoral fracture. Tricompartment joint space loss, marginal osteophytes. Subtle undulation/depression of the lateral femoral condyle articular surface. No acute fracture plane is otherwise seen. No suspicious lytic or blastic lesion. Small effusion. No soft tissue emphysema. No radiopaque foreign body... XR/XR knee RT 3V IMPRESSION: 1. Chronic remodeling of the distal femur related to old injury. 2. Severe lateral compartment arthritis. Moderate medial and patellofemoral arthritis. 3. Slight undulation/depression of the lateral femoral condyle articular surface, could be related to degenerative changes, age-indeterminate fracture not excluded. 4. Small effusion. Electronically signed by: Kurt Tuttle MD 05/13/2025 08:32 AM [facility]
--- NOTE | ~2025-05-13 | CT_ITS ---
CLINICAL HISTORY: lateral femoral epicondyle fracture? CT right femur without intravenous contrast Comparison: CR/SR - XR KNEE 3 VIEWS RIGHT - 05/13/25 08:10 EST CR/SR - XR HIP 1 VIEW RIGHT WITH PELVIS - 02/15/24 15:32 EDT Findings: Right hip arthroplasty. Chronic fracture of the right inferior pubic ramus. Chronic deformity of the distal right femur including of the lateral femoral condyle. No acute fracture or dislocation. Trace joint effusion. No lipohemarthrosis. No acute findings in the visualized pelvis. Colonic diverticulosis without acute inflammation. IMPRESSION: 1. No acute osseous injury. 2. Trace right knee joint effusion. This document has been electronically signed by: Michaela Lopez MD on 05/13/2025 18:57:00
--- NOTE | ~2025-05-13 | CT_ITS ---
EXAMINATION: CT CERVICAL SPINE WITHOUT CONTRAST CLINICAL INFORMATION: Fall COMPARISON: January 04, 2024 TECHNIQUE: Axial imaging was performed from the base of the skull through T2 without IV contrast. Coronal and sagittal reformatted images were generated from the original axial data set. ALARA: The examination used one or more of the following radiation dose reduction techniques: Automated exposure control, iterative reconstruction, and/or adjustment of mA and/or KV. FINDINGS: Motion artifact results in mild to moderate degradation of image quality. There is mild reversal cervical lordosis. There is no prevertebral vertebral soft tissue edema. There is facet degeneration throughout the cervical spine with osteophytes and sclerosis. C2-C3: Unremarkable C3-C4: There is subtle anterolisthesis. C4-C5: There is subtle anterolisthesis and mild loss of disc height. C5-C6: There is subtle retrolisthesis with moderate disc space narrowing and endplate and uncovertebral osteophytes. C6-7: There is moderate loss of disc height with endplate and uncovertebral osteophytes. C7-T1: There is subtle anterolisthesis with mild endplate sclerosis and minimal osteophyte formation. No fracture lines are evident. CT/CT cervical spine wo IV con IMPRESSION: There is mild reversal of cervical lordosis similar to the prior. This can be related to degenerative changes, positioning, muscle spasm, or posterior soft tissue injury. No acute bony abnormality. Electronically signed by: Rod Garcia MD 05/13/2025 10:26 AM [facility]
--- OUTSIDE RECORDS SUMMARY | 2025-05-13 07:14 | XMS_ITS | Data Portability ---
Author Organization [facility], OFFICE Address [address] [facility], [facility] [address] [place] [phone] Assessment Encounter Date Assessment Date Assessment LastModified [...] walks with the walker or with an respiratory care assistant. Her pain is much decreased. Her [...] osteoarthritis of the pelvic region and thigh [id number] Active Timmy Lea MD [address], [place], [address], [place] - Comp-Assistd and Rcnstrctive Surgry 6 10:47:12 Problem Notes None recorded. Procedures Surgical History Date Name Laterality Status Provider Name and Address Organization Details Recorded Time 6 Hip Surgery completed Timmy Lea MD [address], [place], [address], [place] - Comp-Assistd and Rcnstrctive Surgry 12/25/2015 10:47:04 Knee Surgery completed Timmy Lea MD [address], [place], [address], [place] - Comp-Assistd and Rcnstrctive Surgry 03/20/2015 18:08:18 General Surgery completed Timmy Lea MD [address], [place], [address], [place] - Comp-Assistd and Rcnstrctive Surgry [...] Lea MD [address], [place], [address], [place] - Comp-Assistd and Rcnstrctive Surgry 5 18:08:19 Medications Name Sig Start Date Stop Date Status Note LastModified by Organization Details LastModified Time Miralax 17 gram oral powder packet Take 1 packet(s) PRN. 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, Svetlana Wheeler requested script to be [...] Last Updated DateTime 12/25/2015 120/71 mm[Hg] Timmy Lea MD [address] [place] [address],[facility] [address], [place], [address], [place] - Comp-Assistd and Rcnstrctive Surgry 12/25/2015 10:20:09 Date Recorded Body mass index (BMI) Body height Body weight Provider Name and Address Organization Details Last Updated DateTime 12/25/2015 30 kg/m2 162.56 cm 03518.09861 g Marielena Sesay [place] - Comp-Assistd and Rcnstrctive Surgry 12/25/2015 10:17:22 Date Recorded Systolic And Diastolic Provider Name and Address Organization Details Last Updated DateTime 03/20/2015 109/80 mm[Hg] Timmy Lea MD [address] [facility] [address], [place], [address], [place] - Comp-Assistd and Rcnstrctive Surgry 03/20/2015 16:55:39 Date Recorded Body height Body mass index (BMI) Body weight Provider Name and Address Organization Details Last Updated DateTime 03/20/2015 170.18 cm 28.2 kg/m2 89626.6266 g Marielena Sesay [place] - Comp-Assistd and Rcnstrctive Surgry 03/20/2015 16:47:33 Social History None recorded. Functional Status None recorded. Mental Status None recorded. Family History Nothing Reported. Medical History Condition Response Coronary Artery Disease N Heart Problems N Gout N Anxiety/Depression Y Blood Transfusion N Hernia N Migraines N Thyroid Problems N COPD N Pacemaker N Anemia N Ulcers N Heart Attack ([place]) N Diabetes N Bleeding Disorder N Orthotics [...] Diagnosis SNOMED-CT Code Diagnosis ICD10 Code Diagnosis IMO Codes Diagnosis Note [id number] Timmy Lea MD OFFICE [address] [place] [address] 03/20/2015 16:36:28 03/21/2015 09:49:06 [id number] Timmy Lea MD OFFICE [address] [place] [address] 12/25/2015 10:07:01 12/25/2015 17:53:04 Health Concerns Section Related Observation LastModified by Organization Detai ls LastModified Time None Recorded Concern Status LastModified by Organization Details LastModified Time None Recorded Advance Directives Directive None Recorded Payers Insurance Date Sequence Insurance Name Policy Number Policy Hidalgo Covered Member ID Hidalgo Member ID Guarantor Name 08/30/2016 1 [place] B-[place]: [employer] [facility] [id number] [facility] [place] 08/30/2016 2 [place] [facility] [id number] [facility] [place] Notes Date Note Type Note Provider Name and Address Organization Details Recorded Time 5 text/html Hip(s) AthenaReported by PatientHPIFor location, patient reportsright. For severity, patient reportssevere. For alleviating factors, patient reportsrest. For aggravating factors, patient reportswalkingandgoing from sit to stand. For prior imaging, patient reportsx ray. For previous pt, (activity and exercise hasn't helped.).ROS as noted in the HPI Timmy Lea MD [address], [place], [address], [place] - Comp-Assistd and Rcnstrctive Surgry 03/22/2015 10:25:02 6 text/html Hip(s) AthenaReported by PatientHPIFor location, patient reportsrightandlateral. For severity, patient reportsmild. For alleviating factors, patient reportsrest. For aggravating factors, patient reportswalking. For prior imaging, patient reportsx rayandct scan. For previous pt, patient reportshelped significantly.ROS as noted in the HPI Timmy Lea MD [address] [place] [address],[facility] [address], [place], [address], [place] - Comp-Assistd and Rcnstrctive Surgry 12/25/2015 10:52:48 OBGyn Episode No OBEpisode recorded.
--- OUTSIDE RECORDS SUMMARY | 2025-05-13 07:14 | XMS_ITS | Encounter Summary ---
Author Organization [facility] Address [address] [place] [address] Phone Care Team Providers Care Solution Coordinator Name Role Phone Mesha Peña NP Primary Care Provider [phone] Marcie Pyle Primary Care Provider [phone] Encounter Details Date Type Department Care Team (Late Contact Info) Description 05/16/2022 Procedure Pass [facility] Endoscopy Admitting Dept Virtual Department [address] [place] [address] Social History Tobacco Use Types Packs/Day Years Used Date Smoking Tobacco: Former Cigarettes 2013 Smokeless Tobacco: Never Alcohol Use Standard Drinks/Week Comments No 0 (1 standard drink = 0.6 oz pur e alcohol) Comments Unknown Sex and Gender Information Value Date Recorded Sex Assigned at Female 12/19/2017 5:50 PM EDT Legal Sex Female 5:09 PM EST Gender Identity Female 12/19/2017 5:50 PM EDT Sexual Orientation Straight 12/19/2017 5: 50 PM EDT documented as of this encounter Plan of Treatment Upcoming Encounters Date Type Department Care Team (Late Contact Info) Description 05/26/2025 1:30 PM EST Office Visit [facility] Rheumatology [address] [place] [address] Keely Hager MD [address] [place] [address] 07/12/2025 11:45 AM EST Office Visit [facility] [address] [place] [address] Brandy Alberto, ANSHUL [address] [address] 10/04/2025 9:45 AM EDT Appointment [facility], Bone Density - [facility] [address] [place] [address] Marcie Pyle PA [address] [place] [address] documented as of this encounter Visit Diagnoses Not on filedocumented in this encounter Additional Health Concerns Infection Onset Date Last Indicated Resolved Time CoV-Risk 08/31/2022 08/31/2022 08/31/2022 10:1 8 PM EST COVID-19 08/31/2022 08/31/2022 09/21/2022 1:21 AM EDT documented as of this encounter Care Teams Solution Coordinator Relationship Specialty Start Date End Date Mesha Peña NP [address] [place] [address] PCP - General 04/24/17 02/25/24 Marcie Pyle PA [address] [place] [phone] PCP - General Physician Cut [employer] Log 02/26/24 documented as of this encounter Additional Source Comments The information contained in this document represents components of the legal health record. It is not the complete legal health record.[facility]
--- OUTSIDE RECORDS SUMMARY | 2025-05-13 07:14 | XMS_ITS | Encounter Summary ---
Author Organization [facility] Address [address] [facility] [address] [place] [address] Phone Care Team Providers Care Park Guide Name Role Phone Mesha Peña NP Primary Care Provider [phone] Marcie Pyle Primary Care Provider [phone] Reason for Referral * MRI/CAT Scan - Closed Specialty Diagnoses / Procedures Referred By Austin chacon Referred To Contact Radiology Diagnoses Cerebrovascular accident (CVA), unspecified mechanism Procedures MRI Brain Aron Archuleta MD Phone: tel: fax: [email or web address]:[email or web address] Referral ID Status Reason Start Date Expiration Date Visits Re quested Visits Authorized [id number] Closed 12/10/2017 12/10/2018 1 1 Encounter Details Date Type Department Care Team (Latest Contact Info) Description 12/10/2017 Ancillary Orders Virtual Department [address] [place] [address] Aron Archuleta MD [address] [facility], [address] [place] [address] [email or web address] Cerebrovascular accident (CVA), unspecified mechanism Social History Tobacco Use Types Packs/Day Years Used Date Smoking Tobacco: Former Cigarettes 1 20 1 - 2013 Smokeless Tobacco: Never Alcohol Use Standard [...] Encounters Date Type Department Care Team (Late st Contact Info) Description 05/26/2025 1:30 PM EST Office Visit [facility] Rheumatology [address] [place] [address] Keely Hager MD [address] [facility], [address] [place] [address] 07/12/2025 11:45 AM EST Office Visit [facility] [address] [place] [address] Brandy Alberto, SEAFOOD PROCESSOR [address] [address] 10/04/2025 9:45 AM EDT Appointment [facility], Bone Density [facility] [address] [place] [address] Marcie Pyle PA [address] [place] [phone] documented as of this encounter Results * MRI BRAIN WITHOUT CONTRAST (12/26/2017 1:02 PM EDT) Anatomical Region Laterality Modality Head Magnetic Resonan ce 12/26/2017 1:29 PM EDT Impressions 12/26/2017 1:40 PM EDT No evidence of acute intracranial pathology. A few small T2/T2 FLAIR hyperintense foci within the deep and periventricular white matter are likely due to mild chronic small vessel ischemia. No significant change from 09/10/2016. POS - [id number] Narrative 12/26/2017 1:40 PM EDT HISTORY: Right-sided headaches, ataxia, diplopia, tinnitus and memory loss COMPARISON: MRI brain 09/10/2016 TECHNIQUE: Exam performed on a 1.5 Soco high-field MRI scanner. Axial T1, T2, T2*, T2 FLAIR and diffusion-weighted imaging with ADC map, sagittal T1 sequences were obtained. FINDINGS: No evidence of intracranial hemorrhage or hematomas. No evidence of acute infarction. No suspicious intracranial masses. A few scattered small T2/T2 FLAIR hyperintense foci are again demonstrated within the deep and periventricular white matter. Minimal if any progression from 09/10/2016. Ventricles are stable in size and configuration. Basal cisterns are patent. Normal flow-voids at the base of the skull. The paranasal sinuses are essentially clear. Procedure Note Sebastian Quintana MD - 12/26/2017 HISTORY: Right-sided headaches, ataxia, diplopia, tinnitus and memoryloss COMPARISON: MRI brain 09/10/2016 TECHNIQUE: Exam performed on a 1.5 [employer]o high-field MRI scanner. AxialT1, T2, T2*, T2 FLAIR and diffusion-weighted imaging with ADC map,sagittal T1 sequences were obtained. FINDINGS: No evidence of intracranial hemorrhage or hematomas. No evidence of acuteinfarction. No suspicious intracranial masses. A few scattered small T2/T2 FLAIR hyperintense foci are again demonstratedwithin the deep and periventricular white matter. Minimal if anyprogression from 09/10/2016. Ventricles are stable in size and configuration. Basal cisterns arepatent. Normal flow-voids at the base of the skull. The paranasal sinuses are essentially clear. IMPRESSION: No evidence of acute intracranial pathology. A few small T2/T2 FLAIRhyperintense foci within the deep and periventricular white matter arelikely due to mild chronic small vessel ischemia. No significant changefrom 09/10/2016. POS - [id number] Aron Archuleta MD IMG MR HEAD/NECK Final Resul t documented in this encounter Visit Diagnoses Diagnosis Cerebrovascular accident (CVA), unspecified mechanism Cerebrovascular accident (CVA), unspecified mechanism documented in this encounter Additional Health Concerns Infection Onset Date Last Indicated Resolved Time CoV-Risk 01/05/2020 01/05/2020 01/19/2020 1:23 AM EDT CoV-Risk 08/31/2022 08/31/2022 08/31/2022 10:1 8 PM EST COVID-19 08/31/2022 08/31/2022 09/21/2022 1:21 AM EDT documented as of this encounter Care Teams Park Guide Relationship Specialty Start Date End Date Mesha Peña NP [address] [place] [id number] PCP - General 04/24/17 02/25/24 Marcie Pyle PA [address] [place] [phone] PCP - General Physician Electric Tool Repairer 02/26/24 documented as of this encounter Additional Source Comments The information contained in this document represents components of the legal health record. It is not the complete legal health record.[facility]
--- OUTSIDE RECORDS SUMMARY | 2025-05-13 07:14 | XMS_ITS | Encounter Summary ---
Author Organization [facility] Address [address] [facility] [address] [place] [address] Phone Care Team Providers Care Senior Ui Developer Name Role Phone Mesha Peña DYE HOUSE VAT WORKER Primary Care Provider Marcie Pyle Primary Care Provider [phone] Encounter Details Date Type Department Care Team (Late st Contact Info) Description 09/01/2020 Ancillary Orders Virtual Department [address] [place] [address] Mesha Peña NP [address] [place] [address] Breast screening Social History Tobacco Use Types Packs/Day Years [...] Description 05/26/2025 1:30 PM EST Office Visit [facility] Rheumatology [address] [place] [address] Keely Hager MD [address] [facility], [address] [place] [address] 07/12/2025 11:45 AM EST Office Visit [facility] [address] [place] [address] Brandy Alberto, ANSHUL [address] [address] 10/04/2025 9:45 AM EDT Appointment [facility], Bone Density - [facility] [address] [place] [address] Marcie Pyle PA [address] [place] [phone] documented as of this encounter Visit Diagnoses Diagnosis Breast screening Breast screening, unspecified documented in this encounter Additional Health Concerns Infection Onset Date Last Indicated Resolved Time CoV-Risk 08/31/2022 08/31/2022 08/31/2022 10:1 8 PM EST COVID-19 08/31/2022 08/31/2022 09/21/2022 1:21 AM EDT documented as of this encounter Care Teams Senior Ui Developer Relationship Specialty Start Date End Date Mesha Peña NP [address] [place] [address] PCP - General 04/24/17 02/25/24 Marcie Pyle PA [address] [place] [phone] PCP - General Physician Stage Electrician Helper 02/26/24 documented as of this encounter Additional Source Comments The information contained in this document represents components of the legal health record. It is not the complete legal health record.[facility]
--- OUTSIDE RECORDS SUMMARY | 2025-05-13 07:14 | XMS_ITS | Encounter Summary ---
Author Organization [facility] Address [address] [facility] [address] [place] [address] Phone Care Team Providers Care Field Secretary Name Role Phone Mesha Peña MAKEUP SALES CONSULTANT Primary Care Provider [phone] Marcie Pyle Primary Care Provider [phone] Encounter Details Date Type Department Care Team (Latest Contact Info) Description 07/26/2020 Transcribe Orders Virtual Department [address] [place] [address] Mesha Peña NP [address] [place] [address] Encounter for laboratory testing for COVID-19 virus (Primary Dx) Social History Tobacco Use Types Packs/Day Years Used Date Smoking Tobacco: Former Cigarettes 1 20 1 4 - 2013 Smokeless Tobacco: Never Alcohol Use [...] Description 05/26/2025 1:30 PM EST Office Visit [facility] Rheumatology [address] [place] [address] Keely Hager MD [address] [facility], [address] [place] [address] 07/12/2025 11:45 AM EST Office Visit [facility] [address] [place] [address] Brandy Alberto, GAS INSPECTOR [address] [address] 10/04/2025 9:45 AM EDT Appointment [facility], Bone Density - [facility] [address] [place] [address] Marcie Pyle PA [address] [place] [phone] documented as of this encounter Visit Diagnoses Diagnosis Encounter for laboratory testing for COVID-19 virus- Primary documented in this encounter Additional Health Concerns Infection Onset Date Last Indicated Resolved Time CoV-Risk 08/31/2022 08/31/2022 08/31/2022 10:1 8 PM EST COVID-19 08/31/2022 08/31/2022 09/21/2022 1:21 AM EDT documented as of this encounter Care Teams Field Secretary Relationship Specialty Start Date End Date Mesha Peña NP [address] [place] [address] PCP - General 04/24/17 02/25/24 Marcie Pyle PA [address] [place] [phone] PCP - General Physician Filament Welder 02/26/24 documented as of this encounter Additional Source Comments The information contained in this document represents components of the legal health record. It is not the complete legal health record.[facility]
--- OUTSIDE RECORDS SUMMARY | 2025-05-13 07:14 | XMS_ITS | Clinical Summary ---
Author Organization [facility] Address [address] [place] [address] Phone Care Team Providers Care Hat Blocking Operator Name Role Phone Marcie Pyle Primary Care Provider [phone] Allergies Active Allergy Reactions Criticality Noted Date Comments Erythromycin Hives,Swelling 11/12/2016 Eye ointment Medications ARIPiprazole (ABILIFY) 30 MG tablet Take 35 mg by mouth daily. Active CALCIUM CARBONATE ORAL 1,500 mg every 8 (eight) hours. Antacid Active umeclidinium (INCRUSE ELLIPTA) 62.5 mcg/actuation inhalation inhale 1 puff Active acetaminophen (TYLENOL) 650 mg/20.3 mL Soln Take 650 mg by mouth every 6 (six) hours as needed. Active zinc oxide-cod liver oil (DESITIN) 40 % Oint Apply topically as needed. Active aspirin 81 MG EC tablet Take 81 mg by mouth daily. Active haloperidol (HALDOL) 5 MG tablet Take 5 mg by mouth daily. Active eyelid cleanser combination 5 (OCUSOFT LID SCRUB TP) by Topical (Top) route. Active cholecalciferol (VITAMIN D3) 25 MCG (1,000 unit) tablet TAKE 2 TABLETS BY MOUTH ONCE DAILY IN THE MORNING 56 tablet 3 06/19/20 20 Active therapeutic multivitamin tablet Take 1 tablet by mouth daily. Active omega 9-xro-enu-fish oil 1,000 mg (120 mg-180 mg) Cap Take 1 capsule by mouth daily. Active carboxymethylce llulose (REFRESH LIQUIGEL) 1 % ophthalmic solution Place 1 drop into each eye 3 (three) times a day. Active fluticasone propionate (FLONASE) 50 mcg/actuation nasal spray 08/27/19 24 Active ketoconazole 2 % cream 08/12/19 24 Active albuterol sulfate (VENTOLIN HFA INHL) Inhale 2 puffs into the lungs every 4 (four) hours as needed. Active guaifenesin (MAXTUSSIN ORAL) Take 10 mL by mouth 4 (four) times a day as needed. Active ELIQUIS 5 mg tablet Take 5 mg by mouth 2 (two) times a day. 01/11/20 25 Active fluconazole (DIFLUCAN) 150 MG tablet Take 150 mg by mouth once a week. For rash under breasts Active NYAMYC powder Apply topically every 6 (six) hours as needed. 10/28/19 25 Active traZODone (DESYREL) 100 MG tablet Take 100 mg by mouth nightly at bedtime. 12/30/19 25 Active folic acid (FOLVITE) 1 MG tabletIndicatio ns:Rheumatoid arthritis involving multiple sites with positive rheumatoid factor TAKE 1 TABLET BY MOUTH DAILY 28 tablet 2 03/23/20 25 Active hydroxychloroqu ine (PLAQUENIL) 200 mg tabletIndicatio ns:Rheumatoid arthritis involving multiple sites with positive rheumatoid factor TAKE 1 TABLET BY MOUTH TWICE A DAY 56 tablet 2 03/23/20 25 Active famotidine (PEPCID) 40 MG tablet Take 1 tablet (40 mg total) by mouth nightly at bedtime. 30 tablet 1 04/07/20 25 026 Active METHOTREXATE 2.5 MG Oral tabletIndicatio ns:Rheumatoid arthritis involving multiple sites with positive rheumatoid factor,Methotre xate, long term acute care registered nurse, current use,NSAID long-term use TAKE 8 TABLETS BY MOUTH WEEKLY ON FRIDAY IN THE MORNING 32 tablet 04/20/20 25 Active celecoxib (CELEBREX) 200 MG capsuleIndicati ons:Rheumatoid arthritis involving multiple sites with positive rheumatoid factor TAKE 1 CAPSULE BY MOUTH EVERY MORNING EXCEPT FRIDAY AFTERNOON 24 capsule 2 05/10/20 25 Active METHOTREXATE 2.5 MG Oral tabletIndicatio ns:Rheumatoid arthritis involving multiple sites with positive rheumatoid factor,Methotre xate, half-way, current use,NSAID long-term use TAKE 8 TABLETS BY MOUTH WEEKLY ON FRIDAY IN THE MORNING 32 tablet 09/ 025 Discontinued celecoxib (CELEBREX) 200 MG capsuleIndicati ons:Rheumatoid arthritis involving multiple sites with positive rheumatoid factor TAKE 1 CAPSULE BY MOUTH EVERY MORNING EXCEPT FRIDAY AFTERNOON 24 capsule 2 04/03/20 025 Discontinued(Re order) omeprazole (PRILOSEC) 20 MG capsule Take 1 capsule (20 mg total) by mouth daily for 30 doses. 30 capsule 12 04/07/20 25 025 Active Problems Problem Noted Date Diagnosed Date Gastroesophageal reflux disease with esophagitis 04/07/2025 Assessment & Plan (04/07/2025 11:13 AM EDT): She had an upper endoscopy in May of 2021 that showed grade C esophagitis and she was placed on omeprazole. Her symptoms improved, she did not tolerate a taper of the PPI and use of H2 rafael alone. She is c/o intermittent acid regurgitation, especially in am upon wakening. We will start her on Pepcid 40mg at HS and continue PPI in am. She has been counseled on diet and avoidance of GERD triggers like chocolate and larger meals. Hoarseness of voice 03/15/2025 Assessment & Plan (03/15/2025 10:18 AM EDT): Etiology for this is unclear, but I suspect this is responsible for breath sounds transmitted to the lower airways and heard over the posterior lung bauer. If ongoing clinical concerns persist, an ENT referral could be considered. Aspiration into airway 03/15/2025 Assessment & Plan (03/15/2025 10:18 AM EDT): This was documented on a barium swallow performed January 2024. She denies any cough with eating currently, and I am told that her liquids are being thickened. Could consider referral to speech therapy along with ENT if felt clinically indicated. Wheelchair dependent 01/20/2025 Assessment & Plan (01/20/2025 2:17 PM EDT): I have encouraged her to continue exercises on a regular basis couple of times a day as educated in PT to improve strength in her lower extremities. Class 2 severe obesity due t o excess calories with serious comorbidity and body mass index (BMI) of 38.0 to 38.9 in adult 05/20/2024 Assessment & Plan (09/16/2024 9:14 PM EDT): Continue diligent portion control. Limit concentrated sugars, saturated fats and calories in the diet. Keep well-hydrated. If unable to achieve expected goal consider formal dietary/nutritional support. Assessment & Plan (05/20/2024 11:38 AM EST): Portion control. Limit concentrated sugars, saturated fats and calories in the diet. Keep well-hydrated. If unable to achieve expected goal consider formal dietary/nutritional support. Snoring 03/09/2024 Long-term use of Plaquenil 01/15/2024 Assessment & Plan (01/20/2025 1:33 PM EDT): Carefully continue exactly as prescribed and make sure to follow-up with sample driller at least every 12 months to make sure no retinal side effects are developing. Use daily sun protection particularly during spring and summer months Assessment & Plan (09/16/2024 10:06 AM EDT): Carefully continue exactly as prescribed and make sure to follow-up with sample driller at least every 12 months to make sure no retinal side effects are developing. Use daily sun protection particularly during spring and summer months Assessment & Plan (05/20/2024 11:35 AM EST): Carefully continue exactly as prescribed and make sure to follow-up with sample driller at least every 12 months to make sure no retinal side effects are developing. Use daily sun protection particularly during spring and summer months Assessment & Plan (01/22/2024 10:24 AM EDT): Carefully continue exactly as prescribed and make sure to follow-up with sample driller at least every 12 months to make sure no retinal side effects are developing. Use daily sun protection particularly during spring and summer months Rotator cuff arthropathy, right 01/15/2024 Assessment & Plan (01/22/2024 10:20 AM EDT): Use warm packs versus warm shower prior to gentle, regular exercise routine- examples of exercises with pictures and detailed instructions printed today. She may benefit from topical cream/gel such as Arnica, Voltaren, Biofreeze versus medicated patches such as Salonpas or IcyHot patch to-3 times daily and if needed at bedtime. If no improvement or worsening despite above strategies consideration for formal PT and/or cortisone injection. Leg length discrepancy 01/15/2024 Assessment & Plan (01/20/2025 1:34 PM EDT): Counteracted by increased R shoe sole thickness-her YARD FOREMAN reports that she is not wearing it regularly-particularly if she does not plan to walk. Assessment & Plan (09/16/2024 9:15 PM EDT): Counteracted by increased R shoe sole thickness-her YARD FOREMAN reports that she is not wearing it regularly-particularly if she does not plan to walk. Assessment & Plan (05/20/2024 11:35 AM EST): Counteracted by increased R shoe sole thickness. Assessment & Plan (01/22/2024 10:25 AM EDT): Counteracted by increased R shoe sole thickness. Daytime somnolence 12/25/2023 Assessment & Plan (12/25/2023 3:27 PM EDT): Will refer to sleep medicine for further evaluation of possible LIZBETH. That being said, it is unclear whether patient would be able to tolerate CPAP. History of COVID-19 12/25/2023 Assessment & Plan (12/25/2023 3:26 PM EDT): Will repeat CXR to document clearance of right basilar infiltrates from August 2022 (when she had COVID-19). Abnormal chest x-ray 12/25/2023 Assessment & Plan (12/25/2023 3:27 PM EDT): Will repeat CXR to document clearance of right basilar infiltrates from August 2022 (when she had COVID-19). Methotrexate, half-way, current use 10/02/2022 Assessment & Plan (01/20/2025 1:32 PM EDT): Take exactly as prescribed. Keep well-hydrated. Avoid sick contacts. Hold methotrexate whenever running fever or feeling sick or taking antibiotics. Complete entire course of antibiotics and wait at least 48 hours after the last dose to make sure that infection does not recur before restarting methotrexate on its usual weekly dosing schedule. Make sure to inform any new BIB GARCIA BLACK ASH BURNER OPERATOR about chronic immunosuppression with methotrexate particularly in emergency situations. Remain alcohol free while taking methotrexate. Return for regular laboratory and office checkups as requested Assessment & Plan (09/16/2024 10:06 AM EDT): Take exactly as prescribed. Keep well-hydrated. Avoid sick contacts. Hold methotrexate whenever running fever or feeling sick or taking antibiotics. Complete entire course of antibiotics and wait at least 48 hours after the last dose to make sure that infection does not recur before restarting methotrexate on its usual weekly dosing schedule. Make sure to inform any new BIB GARCIA BLACK ASH BURNER OPERATOR about chronic immunosuppression with methotrexate particularly in emergency situations. Remain alcohol free while taking methotrexate. Return for regular laboratory and office checkups as requested Assessment & Plan (05/20/2024 11:35 AM EST): Take exactly as prescribed. Keep well-hydrated. Avoid sick contacts. Hold methotrexate whenever running fever or feeling sick or taking antibiotics. Complete entire course of antibiotics and wait at least 48 hours after the last dose to make sure that infection does not recur before restarting methotrexate on its usual weekly dosing schedule. Make sure to inform any new BIB GARCIA, BLACK ASH BURNER OPERATOR about chronic immunosuppression with methotrexate particularly in emergency situations. Remain alcohol free while taking methotrexate. Return for regular laboratory and office checkups as requested Assessment & Plan (01/15/2024 12:18 PM EDT): Take exactly as prescribed. Keep well-hydrated. Avoid sick contacts. Hold methotrexate whenever running fever or feeling sick or taking antibiotics. Complete entire course of antibiotics and wait at least 48 hours after the last dose to make sure that infection does not recur before restarting methotrexate on its usual weekly dosing schedule. Make sure to inform any new BIB GARCIA, BLACK ASH BURNER OPERATOR about chronic immunosuppression with methotrexate particularly in emergency situations. Remain alcohol free while taking methotrexate. Return for regular laboratory and office checkups as requested Assessment & Plan (10/08/2023 2:11 PM EDT): Take exactly as prescribed. Keep well-hydrated. Avoid sick contacts. Hold methotrexate whenever running fever or feeling sick or taking antibiotics. Complete entire course of antibiotics and wait at least 48 hours after the last dose to make sure that infection does not recur before restarting methotrexate on its usual weekly dosing schedule. Make sure to inform any new BIB GARCIA, BLACK ASH BURNER OPERATOR about chronic immunosuppression with methotrexate particularly in emergency situations. Remain alcohol free while taking methotrexate. Return for regular laboratory and office checkups as requested Assessment & Plan (10/02/2022 11:05 AM EDT): Take exactly as prescribed. Keep well-hydrated. Avoid sick contacts. Hold methotrexate whenever running fever or feeling sick or taking antibiotics. Complete entire course of antibiotics and wait at least 48 hours after the last dose to make sure that infection does not recur before restarting methotrexate on its usual weekly dosing schedule. Make sure to inform any new BIB GARCIA, BLACK ASH BURNER OPERATOR about chronic immunosuppression with methotrexate particularly in emergency situations. Remain alcohol free while taking methotrexate. Return for regular laboratory and office checkups as requested NSAID long-term use 09/18/2022 Assessment & Plan (01/20/2025 1:32 PM EDT): Take the lowest dose, with least frequency, for shortest time. Remember to take it always with food. Favor topical over oral preparations. Assessment & Plan (09/16/2024 9:15 PM EDT): Take the lowest dose, with least frequency, for shortest time. Remember to take it always with food. Favor topical over oral preparations. Assessment & Plan (05/20/2024 11:35 AM EST): Take the lowest dose, with least frequency, for shortest time. Remember to take it always with food. Favor topical over oral preparations. Assessment & Plan (01/15/2024 12:33 PM EDT): Take the lowest dose, with least frequency, for shortest time. Remember to take it always with food. Favor topical over oral preparations. Assessment & Plan (10/08/2023 2:11 PM EDT): Take the lowest dose, with least frequency, for shortest time. Remember to take it always with food. Favor topical over oral preparations. Assessment & Plan (10/02/2022 11:02 AM EDT): Take the lowest dose, with least frequency, for shortest time. Remember to take it always with food. Favor topical over oral preparations. Aspirin long-term use 09/18/2022 Assessment & Plan (01/20/2025 1:34 PM EDT): Avoid falls, injuries and cuts. Monitor for excessive bruising and bleeding. Assessment & Plan (09/16/2024 10:07 AM EDT): Avoid falls, injuries and cuts. Monitor for excessive bruising and bleeding. Assessment & Plan (05/20/2024 11:36 AM EST): Avoid falls, injuries and cuts. Monitor for excessive bruising and bleeding. Assessment & Plan (01/15/2024 12:33 PM EDT): Avoid falls, injuries and cuts. Monitor for excessive bruising and bleeding. Assessment & Plan (10/08/2023 2:11 PM EDT): Avoid falls, injuries and cuts. Monitor for excessive bruising and bleeding. Assessment & Plan (10/02/2022 11:03 AM EDT): Avoid falls, injuries and cuts. Monitor for excessive bruising and bleeding. Tinea versicolor 10/31/2020 Assessment & Plan (10/31/2020 11:30 AM EDT): Continue topical antifungal cream and stringent attempts to clean and keep area under her breasts and groin area dry. Carpal tunnel syndrome of right wrist 03/14/2020 Osteopenia 03/14/2020 Assessment & Plan (02/27/2021 11:19 AM EDT): Fall and fracture prevention strategies and compliance with vitamin D3 and maintaining a 25 hydroxy vitamin D level within the therapeutic range was discussed. Assessment & Plan (10/31/2020 11:30 AM EDT): Measure 25-hydroxy vitamin D level and discussed fall and fracture prevention with patient and YARD FOREMAN. Primary osteoarthritis of right hip 03/14/2020 History of right hip replacement 11/12/2018 Assessment & Plan (01/22/2024 10:23 AM EDT): Generally stable intermittent pain without signs increased mobility/loosening. Avoid sudden turns, aggravating activities. If symptoms progress may need to return for reevaluation. Assessment & Plan (10/31/2020 11:30 AM EDT): She is having some groin pain so I will check an x-ray to make sure there is no mechanical loosening of the right hip prosthesis. I will get back to them by phone call. Lumbar spondylosis 11/12/2018 Assessment & Plan (11/12/2018 11:10 AM EDT): No reason to suspect compression fracture and no evidence of radiculopathy. Advised continued acetaminophen not exceeding 1500 mg daily, local warmth, PT, and follow-up phone call within the next 7 to 10 days and if no improvement obtain an x-ray. Localized osteoarthritis of right knee 9 Assessment & Plan (10/31/2020 11:29 AM EDT): X-rays reviewed indicating sharpening of the tibial spines and medial compartment narrowing and this is considered moderate. External knee support, diclofenac gel as needed, contrast baths as needed and if absolutely necessary intra-articular corticosteroid. Assessment & Plan (10/03/2020 3:46 PM EDT): Joint injection Joint injection site was identified. Injection site was swabbed with alcohol. Local anesthesia was obtained with ethyl chloride spray. Medial midline right knee was injected with 40 mg Depo medrol and 1 ml of 1% Lidocaine. Hemostasis was obtained with pressure. A bandage was applied. Post injection care was discussed with the patient. Post injection activity was discussed with the patient. [facility] #[id number] 4350-0841-79 [facility] #A 7550-5509-27 Lot [id number] Exp. 07/28 Patient will continue Celecoxib 200 mg PO daily with food. Patient also uses Suman-Wallace, Lidocaine patch/rub as needed. Assessment & Plan (05/23/2020 11:55 AM EST): Tricompartmental with lateral prominent osteoarthritis of the right knee with a flare will be treated with intra-articular corticosteroid injection today. Assessment & Plan (08/11/2018 1:04 PM EST): Symptomatic tricompartmental disease secondary to RA. Reviewed last x-ray showing diffuse osteopenia and tricompartmental narrowing and subchondral sclerosis with osteophytosis worse in the medial compartment. An external knee support, gentle quadricep strengthening and weight control as well as Visco supplementation may be considered. Rheumatoid arthritis with positive rheumatoid fa ctor 08/05/2017 Assessment & Plan (01/20/2025 2:16 PM EDT): Clinically and laboratory pool appears stable as of last checkup from 09/16/2024. New set of labs monitoring safety and efficacy of therapy requested today and prior to next visit in 4 months-standing orders in [place] and order printed. Carefully continue daily folic acid 1 mg in addition to Plaquenil 200 mg twice daily and weekly oral methotrexate 20 mg every Friday with 200 mg Celebrex as needed. Reminded not to take Celebrex and methotrexate at the same time. Joint protection, energy conservation techniques. Avoid falls, injuries, overuse and sick contacts. Call if questions or problems. Assessment & Plan (09/16/2024 9:16 PM EDT): Clinically and laboratory pool appears stable as of last checkup from May 2024. New set of labs monitoring safety and efficacy of therapy requested today and prior to next visit in 4 months-standing orders in [place] and order printed. Carefully continue daily folic acid 1 mg in addition to Plaquenil 200 mg twice daily and weekly oral methotrexate 20 mg every Wilbert with 200 mg Celebrex as needed. Reminded not to take Celebrex and methotrexate at the same time. Joint protection, energy conservation techniques. Avoid falls, injuries, overuse and sick contacts. Call if questions or problems. Assessment & Plan (05/20/2024 11:33 AM EST): Clinically and laboratory pool appears stable. New set of labs monitoring safety and efficacy of therapy requested today and prior to next visit in 4 months-standing orders in [facility] and order printed. Carefully continue daily folic acid 1 mg in addition to Plaquenil 200 mg twice daily and weekly oral methotrexate 20 mg every Wilbert with 200 mg Celebrex as needed. Reminded not to take Celebrex and methotrexate at the same time. Joint protection, energy conservation techniques. Avoid falls, injuries, overuse and sick contacts. Call if questions or problems. Assessment & Plan (01/22/2024 10:17 AM EDT): Clinically and laboratory pool appears stable. New set of labs monitoring safety and efficacy of therapy requested today and prior to next visit in 4 months-standing orders in [facility] and order printed. Carefully continue daily folic acid 1 mg in addition to Plaquenil 200 mg twice daily and weekly oral methotrexate 20 mg every Wilbert with 200 mg Celebrex as needed. Reminded not to take Celebrex and methotrexate at the same time. Joint protection, energy conservation techniques. Avoid falls, injuries, overuse and sick contacts. Call if questions or problems. Assessment & Plan (10/08/2023 10:47 PM EDT): Clinically and laboratory pool appears stable. New set of labs monitoring safety and efficacy of therapy requested prior to next visit in 3 months-standing orders in [facility]. Carefully continue daily folic acid 1 mg in addition to Plaquenil 200 mg twice daily and weekly oral methotrexate 20 mg every Wilbert with 200 mg Celebrex as needed. Joint protection, energy conservation techniques. Avoid falls, injuries, overuse and sick contacts. Call if questions or problems. Assessment & Plan (10/02/2022 11:02 AM EDT): New set of labs monitoring safety and efficacy of therapy requested today and prior to next visit in 3 months-standing orders in [facility]. Carefully continue daily folic acid 1 mg in addition to Plaquenil 200 mg twice daily and weekly oral methotrexate every Friday with 200 mg Celebrex as needed. Joint protection, energy conservation techniques. Avoid falls, injuries, overuse and sick contacts. On her request I agreed to inject her left shoulder with longer acting steroid and lidocaine mixture today. Procedure: After an informed oral consent, under sterile conditions using Ethyl chloride spray for local anesthesia I have injected 40 mg Triamcinolone acetonide and 2 cc 1% Lidocaine into Left shoulder from anterior approach uneventfully. Details of post-procedure care were explained to the patient in the office and given in writing. Provider: Keely Hager MD Patient: Amy Fox : 1960 Date: 09/18/2022 Call if questions or problems. Assessment & Plan (09/01/2022 5:25 AM EST): -Hold methotrexate for now Assessment & Plan (08/13/2021 7:29 PM EST): Hx of RA on MTX 20 mg weekly Suspect ongoing disease with few tender joints, and elevated ESR Left Subarcomial bursitis may be due to RA > -injection today-see procedure note XR left shoulder Pred taper for current symptoms Trial of adding Plaquenil 200 mg BID If ineffective, will need biologic ?? Hydroxychloroquine (Plaquenil) side effects were discussed with patient ? Side Effects: ? Hydroxychloroquine is typically very well tolerated, and serious side effects are rare. ? ? The most common side effects are:? - Nausea and diarrhea, which often improve with time or by taking the medication with food or milk. ? ? ?Less common side effects include:? - Skin rashes? - Changes in skin pigment (such as darkening or dark spots)? - Hair changes (bleaching or thinning of hair) - Anemia (rare) ? - Vision changes or loss of vision (rare). This is more likely in individuals taking high doses for many years, those over the age of 60, or in those with significant kidney disease. ? ? Pt understands the need to have regular (annual) eye exams while taking the drug. Assessment & Plan (02/27/2021 11:19 AM EDT): Polyarticular seropositive erosive rheumatoid arthritis. Continue methotrexate. Discussed potential toxicities. Check liver function test. Continue folic acid and Celebrex. Hospital Outpatient Visit on 01/03/2021 Component Date Value Ref Range Status WBC 01/03/2021 8.01 4.00 - 11.00 K/uL Final RBC 01/03/2021 4.24 3.72 - 5.30 M/uL Final HGB 01/03/2021 13.1 11.4 - 15.9 g/dL Final HCT 01/03/2021 39.4 34.2 - 46.8 % Final PLT 01/03/2021 412 140 - 430 K/uL Final MCV 01/03/2021 92.9 78.0 - 97.0 fL Final MCH 01/03/2021 30.9 25.0 - 33.0 pg Final MCHC 01/03/2021 33.2 32.0 - 36.0 g/dL Final RDW 01/03/2021 13.6 11.0 - 16.0 % Final MPV 01/03/2021 9.2 8.4 - 12.8 fl Final NRBC 01/03/2021 0.00 0 /100 WBCs Final ABSOLUTE NRBC 01/03/2021 0.00 0 K/uL Final DIFF METHOD 01/03/2021 Auto Final NEUTS 01/03/2021 59.9 43.0 - 75.0 % Final LYMPHS 01/03/2021 26.2 18.2 - 47.4 % Final MONOS 01/03/2021 9.6 4.00 - 11.00 % Final EOS 01/03/2021 3.2 0.0 - 8.0 % Final BASOS 01/03/2021 0.9 0.0 - 2.0 % Final Granulocytes, immature (%) 01/03/2021 0.2 0.0 - 0.9 % Final ABSOLUTE NEUTS 01/03/2021 4.79 1.80 - 7.70 K/uL Final ABSOLUTE LYMPHS 01/03/2021 2.10 1.00 - 3.10 K/uL Final ABSOLUTE MONOS 01/03/2021 0.77 0.20 - 0.80 K/uL Final ABSOLUTE EOS 01/03/2021 0.26 0.00 - 0.80 K/uL Final ABSOLUTE BASOS 01/03/2021 0.07 0.00 - 0.09 K/uL Final Granulocytes, immature 01/03/2021 0.02 0.00 - 0.05 K/uL Final C REACTIVE PROTEIN 01/03/2021 14.0* 0.0 - 4.0 mg/L Final SODIUM 01/03/2021 141 133 - 146 mmol/L Final POTASSIUM 01/03/2021 4.1 3.3 - 5.1 mmol/L Final CHLORIDE 01/03/2021 105 96 - 108 mmol/L Final CO2 01/03/2021 26 21 - 35 mmol/L Final BUN 01/03/2021 16 6 - 19 mg/dL Final CREATININE 01/03/2021 0.60 0.5 - 1.5 mg/dL Final GLUCOSE 01/03/2021 109* 70 - 99 mg/dL Final ALBUMIN 01/03/2021 3.5* 3.9 - 4.8 g/dL Final TOTAL PROTEIN 01/03/2021 6.8 6.5 - 8.0 g/dL Final CALCIUM 01/03/2021 9.3 8.4 - 10.3 mg/dL Final ALKALINE PHOSPHATASE 01/03/2021 112 39 - 117 U/L Final TOTAL BILIRUBIN 01/03/2021 <0.2 0.0 - 1.2 mg/dL Final AST 01/03/2021 19 0 - 37 U/L Final ALT 01/03/2021 17 0 - 40 U/L Final GLOBULIN 01/03/2021 3.3 1 - 4.8 g/dL Final EGFR 01/03/2021 98 >59 mL/min/1.73m2 Final Estimated glomerular filtration rate calculated using the CKD-EPI equation. ANION GAP 01/03/2021 14 10 - 20 mmol/L Final 25 OH VIT D (TOTAL) 01/03/2021 53 30 - 60 ng/mL Final ESR 01/03/2021 35* 0 - 30 mm/h Final Assessment & Plan (10/31/2020 11:29 AM EDT): Though methotrexate causing partial immunosuppression may be prolonging her tinea I do not think she can safely stop the methotrexate at this point. We risk a polyarticular flare of her rheumatoid arthritis which likely would necessitate use of prednisone to get better control and this would only worsen her skin condition and be deleterious to her overall health picture. There are no extra-articular manifestations of disease and she shows good tolerance of methotrexate. Laboratory work will be checked again today. No visits with results within 3 Month(s) from this visit. Latest known visit with results is: Hospital Outpatient Visit on 05/23/2020 Component Date Value Ref Range Status WBC 05/23/2020 7.68 4.00 - 11.00 K/uL Final Note Reference Range updates to all CBC and Differential results. RBC 05/23/2020 4.31 3.72 - 5.30 M/uL Final HGB 05/23/2020 13.1 11.4 - 15.9 g/dL Final Note updated Reference Ranges for all CBC and Differential results. HCT 05/23/2020 39.7 34.2 - 46.8 % Final PLT 05/23/2020 431* 140 - 430 K/uL Final MCV 05/23/2020 92.1 78.0 - 97.0 fL Final MCH 05/23/2020 30.4 25.0 - 33.0 pg Final MCHC 05/23/2020 33.0 32.0 - 36.0 g/dL Final RDW 05/23/2020 13.2 11.0 - 16.0 % Final MPV 05/23/2020 9.5 8.4 - 12.8 fl Final NRBC 05/23/2020 0.00 0 /100 WBCs Final ABSOLUTE NRBC 05/23/2020 0.00 0 K/uL Final DIFF METHOD 05/23/2020 Auto Final NEUTS 05/23/2020 51.4 43.0 - 75.0 % Final LYMPHS 05/23/2020 34.0 18.2 - 47.4 % Final MONOS 05/23/2020 8.3 4.00 - 11.00 % Final EOS 05/23/2020 5.2 0.0 - 8.0 % Final BASOS 05/23/2020 0.8 0.0 - 2.0 % Final Granulocytes, immature (%) 05/23/2020 0.3 0.0 - 0.9 % Final ABSOLUTE NEUTS 05/23/2020 3.95 1.80 - 7.70 K/uL Final ABSOLUTE LYMPHS 05/23/2020 2.61 1.00 - 3.10 K/uL Final ABSOLUTE MONOS 05/23/2020 0.64 0.20 - 0.80 K/uL Final ABSOLUTE EOS 05/23/2020 0.40 0.00 - 0.80 K/uL Final ABSOLUTE BASOS 05/23/2020 0.06 0.00 - 0.09 K/uL Final Granulocytes, immature 05/23/2020 0.02 0.00 - 0.05 K/uL Final C REACTIVE PROTEIN 05/23/2020 13.5* 0.0 - 4.0 mg/L Final SODIUM 05/23/2020 138 133 - 146 mmol/L Final POTASSIUM 05/23/2020 5.0 3.3 - 5.1 mmol/L Final CHLORIDE 05/23/2020 104 96 - 108 mmol/L Final CO2 05/23/2020 24 21 - 35 mmol/L Final BUN 05/23/2020 19 6 - 19 mg/dL Final CREATININE 05/23/2020 0.70 0.5 - 1.5 mg/dL Final GLUCOSE 05/23/2020 95 70 - 99 mg/dL Final ALBUMIN 05/23/2020 3.6* 3.9 - 4.8 g/dL Final TOTAL PROTEIN 05/23/2020 6.7 6.5 - 8.0 g/dL Final CALCIUM 05/23/2020 9.9 8.4 - 10.3 mg/dL Final ALKALINE PHOSPHATASE 05/23/2020 110 39 - 117 U/L Final TOTAL BILIRUBIN 05/23/2020 0.2 0.0 - 1.2 mg/dL Final AST 05/23/2020 26 0 - 37 U/L Final ALT 05/23/2020 12 0 - 40 U/L Final GLOBULIN 05/23/2020 3.1 1 - 4.8 g/dL Final EGFR 05/23/2020 94 >59 mL/min/1.73m2 Final Estimated glomerular filtration rate calculated using the CKD-EPI equation. ANION GAP 05/23/2020 15 10 - 20 mmol/L Final 25 OH VIT D (TOTAL) 05/23/2020 52 30 - 60 ng/mL Final Assessment & Plan (10/03/2020 3:44 PM EDT): Patient will continue Methotrexate 2.5 mg Take 8 pills PO q week on the same day of the week. Continue Folic acid 1 mg PO daily. Assessment & Plan (05/23/2020 11:55 AM EST): Seropositive erosive polyarticular disease in large and small joints is partially controlled without extra-articular manifestation on weekly methotrexate, folic acid, and Celebrex. These will remain unchanged pending my review of labs. Previous lab work was reviewed and looks normal. Hospital Outpatient Visit on 03/07/2020 Component Date Value Ref Range Status ALKALINE PHOSPHATASE 03/07/2020 98 39 - 117 U/L Final TOTAL BILIRUBIN 03/07/2020 <0.2 0.0 - 1.2 mg/dL Final DIRECT BILIRUBIN 03/07/2020 <0.2 0 - 0.3 mg/dL Final Bilirubin (Indirect) 03/07/2020 NOT CALCULATED 0 - 1.5 mg/dL Final AST 03/07/2020 19 0 - 37 U/L Final ALT 03/07/2020 20 0 - 40 U/L Final TOTAL PROTEIN 03/07/2020 6.9 6.5 - 8.0 g/dL Final ALBUMIN 03/07/2020 3.8* 3.9 - 4.8 g/dL Final GLOBULIN 03/07/2020 3.1 1 - 4.8 g/dL Final A/G Ratio 03/07/2020 1.23 1.00 - 4.80 RATIO Final Assessment & Plan (11/12/2018 11:09 AM EDT): Polyarticular seropositive erosive rheumatoid arthritis without extra-articular manifestations of disease except for mild xerostomia and patient status post right total hip replacement and who has acute low back pain. She will continue on current medication pending my review of lab work ordered for today. Previous lab work was reviewed and was normal. No evidence of medication toxicity. No visits with results within 3 Month(s) from this visit. Latest known visit with results is: Admission on 08/15/2018, Discharged on 08/15/2018 Component Date Value Ref Range Status Specimen Source/ Description 08/15/2018 WOUND WOUND ON LEFT BREAST WOUND Final SPECIAL REQUESTS 08/15/2018 None Final GRAM STAIN 08/15/2018 Rare WBC'S , NO ORGANISMS SEEN Final CULTURE / TEST 08/15/2018 Rare COAGULASE NEGATIVE STAPHYLOCOCCUS* Final CULTURE / TEST 08/15/2018 Rare COAGULASE NEGATIVE STAPHYLOCOCCUS of a second type* Final REPORT STATUS 08/15/2018 08/17/2018 FINAL Final Assessment & Plan (08/11/2018 1:03 PM EST): Patient has severe polyarticular seropositive erosive rheumatoid arthritis. The changes in her right wrist are making some activities difficult such as eating. I have asked him to apply a wrist splint to help keep the wrist in a neutral position. For acute flares only cortisone injections can be done into the wrist. Ultimately after discussion with her personal banker and the patient a further option is considered to refer her to a hand seo specialist to consider either a arthrodesis or synovectomy. Keep this on hold for now and see how she does with the splinting. I refilled her methotrexate and she will stay on the same dose. I encouraged use of the folic acid. Last liver function test showed an alkaline phosphatase normal at 96 with an AST of 20 and ALT of 16 and a CRP of 7.5 with a hemoglobin of 12.9 and a hematocrit of 38.6. Assessment & Plan (03/26/2018 10:12 AM EDT): She will continue on 20 mg of methotrexate weekly with folic acid. No signs or symptoms of extra-articular manifestations of disease or methotrexate toxicity. Relatively under good control except for recent flare in the right wrist which will be treated with a loosely applied splint and local injection therapy today. Assessment & Plan (12/23/2017 3:08 PM EDT): Patient well-known to me with polyarticular rheumatoid arthritis comes in with 2 weeks of nontraumatic painful swelling of her right knee. She was seen in the emergency department earlier in the week. An x-ray was taken showing early degenerative changes. The patient denies any other new arthralgias and she has been compliant with her medication. Plan will be to review the x-ray today which I did with her, aspirate the knee and injected with cortisone and have him call me in 5 days. If is no significant improvement she will need an MRI to rule out meniscal derangement. Otherwise her medications will remain unchanged. Laboratory work will be done today to assess toxicity from her medications. Assessment & Plan (08/05/2017 11:44 AM EST): Patient with polyarticular seropositive erosive rheumatoid arthritis with a little bit of right hand pain but no swelling. She is also doing quite well. Right total hip replacement. She is suffering from a bronchial infection with cough productive of yellow sputum but no hemoptysis. She will be started on amoxicillin 500 mg 3 times a day. Good oral hydration and acetaminophen as needed. She will stop methotrexate for one week and then if better she may resume. Other medications will remain unchanged. Greater than 50% of this 29 minute visit was spent in [id number] conversation with the patient and her personal banker: Over the treatment rationale for her upper respiratory infection as well as the risks of continued use of methotrexate. There are no extra-articular manifestations of disease. Dyspnea 08/05/2017 Assessment & Plan (12/25/2023 3:25 PM EDT): PFT were significantly technically limited, but did not reveal evidence of overt obstructive airways disease. That being said, she is a former smoker, and continuing daily Incruse is not unreasonable along with as needed albuterol. Given technical limitations and significant difficulty with technique, would not repeat PFT on the road. Assessment & Plan (08/05/2017 10:49 AM EST): This is chronic for her, she is primarily in her wheelchair and does not walk much. For hisspecific complaints regarding this, and appears to be at her baseline. Will monitor clinically. Restrictive lung disease 08/05/2017 Assessment & Plan (02/27/2021 11:18 AM EDT): Combination of restrictive obstructive lung disease will be treated by her prescribed inhaler and regular visits to her primary care physician and gyro compass tester. No active bronchitic infection at the present time. Assessment & Plan (03/26/2018 10:11 AM EDT): Table without infection. She will have a flu vaccine today. Assessment & Plan (08/05/2017 10:51 AM EST): Likely related to extra pulmonary restriction from body habitus as well as possibly a component of restriction related to her right lung scarring and pleural thickening. Could consider repeat pulmonary function studies in April 2018, at an annual interval, as well as a repeat CT scan of the chest for further evaluation, though given the patient's reluctance to undergo further testing today, I believe it is reasonable to monitor her clinically. I wonder whether her CT changes between 2012 and 2015 may not be related to intervening pneumonia and scarring. Obesity (BMI 30-39.9) 08/05/2017 Assessment & Plan (08/05/2017 10:52 AM EST): Likely contributing to restrictive lung disease. Pleural thickening 08/05/2017 Assessment & Plan (12/25/2023 3:26 PM EDT): This had been stable, and we had established a plan to monitor clinically. If repeat CXR reveals clearing of COVID-19 infiltrates from last winter, with not repeat further chest imaging thereafter. Assessment & Plan (08/05/2017 10:51 AM EST): Possibly related to pneumonia and scarring. Monitor clinically for now, could consider repeat chest CT and pleural biopsy if symptoms progress or patient desires further workup down the road. Chronic obstructive pulmonary disease 08/05/2017 Assessment & Plan (03/15/2025 10:18 AM EDT): Would continue Incruse empirically. Assessment & Plan (08/05/2017 10:51 AM EST): Continue symptomatic management as well as in Incruse, though the FEV1/FVC ratio is normal arguing against sigrid COPD in this patient. Former smoker 08/05/2017 Resolved Problems Problem Noted Date Diagnosed Date Resolved Date Sprain of right rotator cuff capsule 01/15/2024 01/15/2024 Class 1 obesity due to exces s calories with serious comorbidity and body mass index (BMI) of 34.0 to 34.9 in adult 01/15/2024 09/16/2024 Assessment & Plan (01/22/2024 10:26 AM EDT): Congratulations on losing 5 pounds from 195 in early October 2023 down to 190 today and keep it off. Continue diligent portion control. Limit concentrated sugars, saturated fats and calories in the diet. Keep well-hydrated. If unable to achieve expected goal consider formal dietary/nutritional support. Class 1 obesity due to exces s calories with serious comorbidity and body mass index (BMI) of 32.0 to 32.9 in adult 09/18/2022 01/15/2024 Assessment & Plan (10/02/2022 10:58 AM EDT): Portion control. Limit concentrated sugars, saturated fats and calories in the diet. Keep well-hydrated. If unable to achieve expected goal consider formal dietary/nutritional support. Pneumonia due to COVID-19 virus 09/01/2022 12/25/2023 Assessment & Plan (09/01/2022 9:49 PM EST): - presented with shortness of breath and cough - diagnosed with COVID-19 on 08/29 in the ED - Due to the multiple medication interactions she was not prescribed Paxlovid. She returns with worsening of symptoms 3 days later. -CXR shows bilateral patchy infiltrates -Empirically started on IV Rocephin and Doxy, Stopped because procalcitonin is low Legionella and strep pneumo antigen are negative -Started on Decadron 6mg daily 09/01 -Started on Remdesivir 09/01/ -Titrate supplemental O2, closely monitor oxygen requirement COPD (chronic obstructive pulmonary disease) 3 12/25/2023 Assessment & Plan (09/01/2022 5:26 AM EST): -Incruse Ellipta is nonformulary and switched to Spiriva while hospitalized, continue as needed albuterol Encounters Date Type Department Care Team Description 05/10/2025 Refill [facility] Rheumatology [address] [place] [address] Naima Prajapati MA 04/21/2025 Transcribe Orders Virtual Department [address] [place] [address] Marcie Pyle PA Asymptomatic menopausal state (Primary Dx) 04/20/2025 Refill [facility] Rheumatology [address] [place] [address] Keely Hager MD Medication Refill 04/07/2025 10:00 AM EDT Office Visit [facility] [address] [place] [address] Unknown, Unknown, Brandy Rankin, ANSHUL Gastroesophageal reflux disease with esophagitis without hemorrhage (Primary Dx) 04/03/2025 Telephone [facility] Rheumatology [address] [place] [address] Keely Hgaer MD 04/03/2025 Orders Only [facility] Rheumatology [address] [place] [address] Keely Hager MD Rheumatoid arthritis involving multiple sites with positive rheumatoid factor 03/23/2025 Refill [facility] Rheumatology [address] [place] [address] Keely Hager MD Medication Refill 03/15/2025 9:15 AM EDT Office Visit [facility] Pulmonary, Allergy and Critical Care Medicine [address] [place] [address] Jean Carlos Parada MD, MS Hoarseness of voice (Primary Dx); Aspiration into airway, subsequent encounter; Chronic obstructive pulmonary disease, unspecified COPD type from Last 3 Months Immunizations Immunization Administration Dates Next Due Influenza Quadrivalent Preservative Free IM 03/08 Family History Medical History Relation Comments Coronary artery disease Brother Relation Status Comments Brother Social History Tobacco Use Types Packs/Day Years Used Date Smoking Tobacco: Former Cigarettes 1 20 1 - 2013 Smokeless Tobacco: Never Tobacco Cessation:Counseling Given: Not Answered Alcohol Use Standard Drinks/Week Comments No 0 (1 standard drink = 0.6 oz pur e alcohol) Education Answer Date Recorded Are you interested in more education? Not on chase e 11/03/2022 Are you concerned about learning? Not on file 11/03/2022 No 11/03/2022 No 11/03/2022 Digital Access Answer Date Recorded No 12/01/2022 No 12/01/2022 Reliable internet access at home? Not on file 12/01/2022 Device with a working camera? Not on file Intimate Partner Violence Answer Date R ecorded Are you denied basic needs s uch as food, clothing, or medical care? No 08/31/2022 In the past 12 months have y ou been in a relationship with a person who hurts, threatens, or tries to control you? No 08/31/2022 Are you denied basic needs s uch as food, clothing, or medical care? No 08/31/2022 In the past 12 months have y ou been in a relationship with a person who hurts, threatens, or tries to control you? No 08/31/2022 Comments Unknown Sex and Gender Information Value Date Recorded Sex Assigned at Female 12/19/2017 5:50 PM EDT Legal Sex Female 5:09 PM EST Gender Identity Female 12/19/2017 5:50 PM EDT Sexual Orientation Straight 12/19/2017 5: 50 PM EDT Last Filed Vital Signs Vital Sign Reading Time Taken Comments Blood Pressure 124/78 04/07/2025 10:33 AM EDT Pulse 75 04/07/2025 10:33 AM EDT Temperature 36.3 C (97.4 F) 03/15/2025 9:37 AM EDT Respiratory Rate 16 05/13/2024 11:48 AM EST Oxygen Saturation 96% 03/15/2025 9:37 AM EDT Inhaled Oxygen Concentration - - Weight 96.2 kg (212 lb) 04/07/2025 10:33 AM EDT Height 160 cm (5' 3 ) 04/07/2025 10:33 AM EDT Body Mass Index 37.55 04/07/2025 10:33 AM EDT Plan of Treatment Upcoming Encounters Date Type Department Care Team (Late st Contact Info) Description 05/26/2025 1:30 PM EST Office Visit [facility] Rheumatology [address] [place] [address] Keely Hager MD [address] [facility], [address] [place] [address] 07/12/2025 11:45 AM EST Office Visit [facility] [address] [place] [address] Brandy Alberto, ANSHUL [address] [address] 10/04/2025 9:45 AM EDT Appointment [facility], Bone Density - [facility] [address] [place] [address] Marcie Pyle PA [address] [place] [address] Health Maintenance Due Date Last Done Comments LIPID PANEL 1959 DEPRESSION SCREENING 1971 HIV ONE-TIME SCREENING (18-65 YEARS) 09/29/1977 ZOSTER VACCINES (1 of 2) 09/29/1978 MAMMOGRAM 1999 COLOGUARD 09/29/2004 FIT TEST 09/29/2004 FOBT 09/29/2004 SIGMOIDOSCOPY 09/29/2004 VIRTUAL COLONOSCOPY 09/29/2004 LUNG CANCER SCREENING (LDCT Only) 09/29/2009 RSV VACCINE (1 - Risk 50-74 years 1-dose series) 09/29/2009 PNEUMOCOCCAL VACCINES (50+ years) (3 of 3 - PCV20 or PCV21) 09/18/2022 09/18/2017, 09/15/2014 Adult Td,Tdap Booster 10/29/2022 10/29/2012, 004 OSTEOPOROSIS SCREENING INITIAL (ONE-TIME) 09/29/2024 INFLUENZA VACCINE (#1) 2025 , 04/10/2021, 05/13/2019, Additional history exists COVID-19 VACCINE ( season) 2025 12/12/2021, 06/18/2021, 10/05/2020, Additional history exists CREATININE LEVEL 01/20/2026 01/20/2025, , 05/20/2024, Additional history exists COLONOSCOPY 05/16/2027 04/07/2025, 05/16/2022 COLORECTAL CANCER SCREENING 05/16/2027 SCREENING FOR DIABETES 01/21/2028 01/20/2025 SMOKING STATUS SCREENING (Every 5 Years) 03/15/2030 03/15/2025 HEPATITIS C SCREENING Completed 11/11/2019 HEPATITIS A VACCINES Aged Out No long er eligible based on patient's age to complete this topic HIB VACCINES Aged Out No longer eligi ble based on patient's age to complete this topic MENINGOCOCCAL VACCINES (ACWY) Aged Out No longer eligible based on patient's age to complete this topic MENINGOCOCCAL VACCINES (B) Aged Out N o longer eligible based on patient's age to complete this topic Medical Devices Implanted Type Area Excellence Coach Device Identifier Shelf Expiration Date Model / Serial / Lot Right Hip Procedures Procedure Name Priority Date/Time Associated Diagnosis Comments COLONOSCOPY FOR RESULT ENTRY ONLY Routine 04/07/2025 COMPREHENSIVE METABOLIC PANEL (CMP) Routine 01/20/2025 2:25 PM EDT Rheumatoid arthritis involving multiple sites with positive rheumatoid factor Methotrexate, long term acute care registered nurse, current use NSAID long-term use Long-term use of Plaquenil HEPATITIS C ANTIBODY, QUALITATIVE Routine 11/11/2019 7:34 AM EDT Rheumatoid arthritis involving multiple sites with positive rheumatoid factor from Last 3 Months or Most Recently Relevant to Health Maintenance Results * COLONOSCOPY FOR RESULT ENTRY ONLY (04/07/2025) Colonoscopy External us Historical Provider MD HEALTH MAINTENANCE Final Result * (ABNORMAL) Comprehensive metabolic panel (01/20/2025 2:25 PM EDT) Pathologist [facility] SODIUM 137 133 - 146 mmol/L [facility] POTASSIUM 4.1 3.3 - 5.1 mmol/L [facility] CHLORIDE 103 96 - 108 mmol/L [facility] CO2 27 21 - 35 mmol/L [facility] BUN 30(H) 6 - 19 mg/dL [facility] CREATININE 0.60 0.5 - 1.5 mg/dL [facility] GLUCOSE 88 70 - 99 mg/dL [facility] ALBUMIN 3.1(L) 3.9 - 4.8 g/dL [facility] TOTAL PROTEIN 6.5 6.5 - 8.0 g/dL [facility] CALCIUM 8.9 8.4 - 10.3 mg/dL [facility] ALKALINE PHOSPHATASE 120(H) 39 - 117 U/L [facility] TOTAL BILIRUBIN 0.3 0.0 - 1.2 mg/dL [facility] AST 19 0 - 37 U/L [facility] ALT 9 0 - 40 U/L [facility] GLOBULIN 3.4 1 - 4.8 g/dL [facility] EGFR 100 >59 mL/min/1.7 3m2 [facility] Comment:Estimated glomerular filtration rate calculated using the CKD-EPI refit equation. ANION GAP 11 10 - 20 mmol/L [facility] Blood 01/20/2025 2:25 PM EDT 01/20/2025 2:27 PM EDT us Keely Hager MD LAB BLOOD BKR ORDERABLES Final Result [address] [address] * Hepatitis C antibody, qualitative (11/11/2019 7:34 AM EDT) HCV NON-REACTIV E NON-REACTI VE [facility] Blood 11/11/2019 7:34 AM EDT 11/11/2019 7:40 AM EDT us Efra Romero MD LAB BLOOD BKR ORDERABLES F inal Result [address] [address] from Last 3 Months or Most Recently Relevant to Health Maintenance Insurance MEDICARE PART A & B [facility] PART A & [place] [facility] MEDIC[place] PART A & [place] [facility] MED[place]ARE PART [place] & [place] [employer] [facility] MEDICARE PART [place] & [place] & B [id number] [place] [address] MEDICARE PART A & B [facility] [place] [address] [place] [address] Sabrina [facility] [place] [address] [address] [place] Advance Directives For more information, please contact: [phone] (9AM - 5PM [facility], Friday-Friday) * Full Code (Latest Code Status on File) Date Activated Date Inactivated Comments 09/01/2022 5:20 AM Question Answer Comments Code Status Confirmed With: Patient Care Teams Hat Blocking Operator Relationship Specialty Start Date End Date Marcie Pyle PA [address] [place] [phone] PCP - General Physician Classer 02/26/24 Additional Source Comments The information contained in this document represents components of the legal health record. It is not the complete legal health record.[facility]
--- OUTSIDE RECORDS SUMMARY | 2025-05-13 07:14 | XMS_ITS | Encounter Summary ---
Author Organization [facility] Address [address] [place] [address] Phone Care Team Providers Care Stone Product Fabricator Name Role Phone Mesha Peña NP Primary Care Provider Marcie Pyle Primary Care Provider [phone] Encounter Details Date Type Department Care Team (Latest Contact Info) Description 12/10/2017 Ancillary Orders Virtual Department [address] [place] [address] rAon Archuleta MD [address] [place] [address], [address] [place] [address] [email or web address] Cerebrovascular accident (CVA), unspecified mechanism Social History Tobacco Use Types Packs/Day Years Used Date Smoking Tobacco: Former Cigarettes 1 2013 Smokeless Tobacco: Never Alcohol Use Standard [...] Upcoming Encounters Date Type Department Care Team ( st Contact Info) Description 05/26/2025 1:30 PM EST Office Visit [facility] Rheumatology [address] [place] [address] Keely Hager MD [address] [facility], [address] [place] [address] 07/12/2025 11:45 AM EST Office Visit [facility] Gastroenterology Clinic [address] [place] [address] Brandy Alberto, ANSHUL [address] [address] 10/04/2025 9:45 AM EDT Appointment [facility], Bone [facility] [address] [place] [address] Marcie Pyle PA [address] [place] [address] documented as of this encounter Results * US Carotid Duplex (Bilateral) (12/26/2017 12:05 PM EDT) Anatomical Region Laterality Modality Heart, Thoracic Vasculature, Neck Ultrasound 12/26/2017 12:0 6 PM EDT Impressions 12/26/2017 12:20 PM EDT Bilateral carotid plaquing greater on the left than the right with an approximate 50% stenosis in the proximal left internal carotid artery and less than 50% narrowing in the proximal right internal carotid artery. Vertebral arteries are patent with antegrade flow bilaterally. S/S: CVA, change in speech, ataxia POS - [id number] Narrative 12/26/2017 12:20 PM EDT The carotid circulation is visualized well with grayscale imaging, color flow imaging, and Doppler spectral analysis. On the right there is a small amount of calcific plaque in the carotid bulb with extension into the origin of the internal carotid artery evident. On the left there is a moderate amount of calcific plaque in the carotid bulb with extension into the internal carotid artery evident. Both external carotid and vertebral arteries are patent with antegrade flow bilaterally.. Velocities are mildly elevated at the proximal internal carotid arteries bilaterally greater on the left than the right. Moderate proximal left internal carotid artery stenosis in the 50% range is suggested based upon the appearance and velocity measurements. Left epididymis stenosis is evident on the right in the proximal internal carotid artery. The right internal carotid artery has a peak systolic velocity of 1.1 m/s with an end-diastolic velocity of 0.46 m/s. On the left the internal carotid artery has a peak systolic velocity of 1.4 m/s with an end-diastolic velocity of 0.50 m/s. Moderate bilateral spectral broadening is evident. Any stenosis measurement is relative to the distal ICA diameters. Procedure Note Giovanni Becerra MD - 12/26/2017 The carotid circulation is visualized well with grayscale imaging, colorflow imaging, and Doppler spectral analysis. On the right there is asmall amount of calcific plaque in the carotid bulb with extension intothe origin of the internal carotid artery evident. On the left there is amoderate amount of calcific plaque in the carotid bulb with extension intothe internal carotid artery evident. Both external carotid and vertebralarteries are patent with antegrade flow bilaterally.. Velocities are mildly elevated at the proximal internal carotid arteriesbilaterally greater on the left than the right. Moderate proximal leftinternal carotid artery stenosis in the 50% range is suggested based uponthe appearance and velocity measurements. Left epididymis stenosis isevident on the right in the proximal internal carotid artery. The right internal carotid artery has a peak systolic velocity of 1.1 m/swith an end-diastolic velocity of 0.46 m/s. On the left the internalcarotid artery has a peak systolic velocity of 1.4 m/s with anend-diastolic velocity of 0.50 m/s. Moderate bilateral spectralbroadening is evident. Any stenosis measurement is relative to the distal ICA diameters. IMPRESSION: Bilateral carotid plaquing greater on the left than the right with anapproximate 50% stenosis in the proximal left internal carotid artery andless than 50% narrowing in the proximal right internal carotid artery.Vertebral arteries are patent with antegrade flow bilaterally. S/S: CVA, change in speech, ataxia POS - [id number] us Aron Archuleta MD CV US NEUROVASCULAR Final Re sult documented in this encounter Visit Diagnoses Diagnosis Cerebrovascular accident (CVA), unspecified mechanism Cerebrovascular accident (CVA), unspecified mechanism documented in this encounter Additional Health Concerns Infection Onset Date Last Indicated Resolved Time CoV-Risk 01/05/2020 01/05/2020 01/19/2020 1:23 AM EDT CoV-Risk 08/31/2022 08/31/2022 08/31/2022 10:1 8 PM EST COVID-19 08/31/2022 08/31/2022 09/21/2022 1:21 AM EDT documented as of this encounter Care Teams Stone Product Fabricator Relationship Specialty Start Date End Date Mesha Peña NP [address] [place] [address] PCP - General 04/24/17 02/25/24 Marcie Pyle PA [address] [place] [phone] PCP - General Physician Jewel Bearing Grinder 02/26/24 documented as of this encounter Additional Source Comments The information contained in this document represents components of the legal health record. It is not the complete legal health record.[facility]
--- OUTSIDE RECORDS SUMMARY | 2025-05-13 07:15 | XMS_ITS | Encounter Summary ---
Author Organization [facility] Address [address] [facility] [address] [address] [place] [address] Phone Care Team Providers Care Receiving Inspector Name Role Phone Mesha Peña NP Primary Care Provider [phone] Marcie Pyle Primary Care Provider [phone] Encounter Details Date Type Department Care Team (Late st Contact Info) Description 12/14/2021 Procedure Pass [facility], Ct Scan - [facility] [address] [place] [address] Social History Tobacco Use Types Packs/Day Years [...] PM EDT documented as of this encounter Functional Status * Calculated C-SSRS Risk Score (Lifetime/Recent) Answer Date of Assessment Author No Risk Indicated 12/14/2021 9:19 PM EDT Yane Nye RN * Rabun Suicide Severity Rating Scale (Screener/Recent Self-Report) Question Answer Date of Assessment Author 1. Wish to be (Past 1 Month) No 022 9:19 PM EDT Yane Nye RN 2. Non-Specific Active Suici jeremiah Thoughts (Past 1 Month) No 12/14/2021 9:19 PM EDT Jake Nye RN 6. Suicidal Behavior (Lifetime) No 9:19 PM EDT Yane Nye RN documented as of this encounter Plan of Treatment Upcoming Encounters Date Type Department Care Team (Late st Contact Info) Description 05/26/2025 1:30 PM EST Office Visit [facility] Rheumatology [address] [place] [address] Keely Hager MD [address] [facility], [address] [place] [address] 07/12/2025 11:45 AM EST Office Visit [facility] Gastroenterology Clinic 10 [place] [address] Brandy Alberto CNP [address] [address] 10/04/2025 9:45 AM EDT Appointment [facility], Bone Density - [facility] [address] [place] [address] Marcie Pyle PA [address] [place] [phone] documented as of this encounter Visit Diagnoses Not on filedocumented in this encounter Additional Health Concerns Infection Onset Date Last Indicated Resolved Time CoV-Risk 08/31/2022 08/31/2022 08/31/2022 10:1 8 PM EST COVID-19 08/31/2022 08/31/2022 09/21/2022 1:21 AM EDT documented as of this encounter Care Teams Receiving Inspector Relationship Specialty Start Date End Date Mesha Peña NP [address] [place] [address] PCP - General 04/24/17 02/25/24 Marcie Pyle PA [address] [place] [phone] PCP - General Physician Railroad Engineer 02/26/24 documented as of this encounter Additional Source Comments The information contained in this document represents components of the legal health record. It is not the complete legal health record.[facility]
--- OUTSIDE RECORDS SUMMARY | 2025-05-13 07:15 | XMS_ITS | Encounter Summary ---
Author Organization [facility] Address [address] [place] [address] Phone Care Team Providers Care Internet Marketing Consultant Name Role Phone Marcie Pyle Primary Care Provider [phone] Encounter Details Date Type Department Care Team (Late st Contact Info) Description 05/10/2025 Refill [facility] Rheumatology [address] [place] [address] Naima Prajapati [place] [address] [place] [address] Social History Tobacco Use Types Packs/Day Years [...] PM EDT documented as of this encounter Progress Notes * Naima Prajapati MA - 05/10/2025 2:38 PM EST Pt needs anew supply of celebrex. Last refill was an urgent fill at [facility]. Need Rx sent to [facility]. Pending meds in. She will not have enough til appt 05/26/2025. Also asked pt to try to have her lab work done prior to appt. Medication Refill Last office visit: 01/20/2025 Next office visit: 05/26/2025 Last CBC w/diff Lab Results Component Value Date WBC 11.40 (H) 01/20/2025 RBC 4.36 01/20/2025 HGB 12.2 01/20/2025 HCT 39.1 01/20/2025 PLT 443 01/20/2025 MCV 89.7 01/20/2025 MCH 28.0 01/20/2025 MCHC 31.2 (L) 01/20/2025 RDW 15.6 (H) 01/20/2025 MVP 9.5 01/20/2025 NRBCA 0.00 01/20/2025 DIFMET Auto 01/20/2025 NEUT 59.0 01/20/2025 LYMP 22.5 01/20/2025 MON 12.3 (H) 01/20/2025 EOSP 5.4 (H) 01/20/2025 ANEU 6.73 01/20/2025 ALYMP 2.57 01/20/2025 AMONS 1.40 (H) 01/20/2025 AEOSN 0.61 (H) 01/20/2025 ABASOP 0.04 01/20/2025 IMMGRAN 0.05 01/20/2025 Last CMP Lab Results Component Value Date NA 137 01/20/2025 K 4.1 01/20/2025 CL 103 01/20/2025 CO2 27 01/20/2025 BUN 30 (H) 01/20/2025 CRE 0.60 01/20/2025 GLU 88 01/20/2025 ALB 3.1 (L) 01/20/2025 TP 6.5 01/20/2025 CA 8.9 01/20/2025 ALKP 120 (H) 01/20/2025 TBILI 0.3 01/20/2025 SGOT 19 01/20/2025 SGPT 9 01/20/2025 GLOB 3.4 01/20/2025 GFR 100 01/20/2025 ANION 11 01/20/2025 Last CRP Lab Results Component Value Date CRPT 23.3 (H) 01/20/2025 Last ESR ESR Date Value Ref Range Status 01/20/2025 41 (H) 0 - 30 mm/h Final documented in this encounter Plan of Treatment Upcoming Encounters Date Type Department Care Team (Late st Contact Info) Description 05/26/2025 1:30 PM EST Office Visit [facility] Rheumatology [address] [place] [address] Keely Hager MD [address] [place] [address], [address] [place] [address] 07/12/2025 11:45 AM EST Office Visit [facility] Gastroenterology Clinic [address] [place] [address] Brandy Alberto CNP [address] [address] 10/04/2025 9:45 AM EDT Appointment [facility], Bone Density - [address] [address] Marcie Pyle PA [address] [place] [address] documented as of this encounter Visit Diagnoses Diagnosis Rheumatoid arthritis involving multiple sites with positive rheumatoid factor documented in this encounter Care Teams Internet Marketing Consultant Relationship Specialty Start Date End Date Marcie Pyle PA [address] [place] [phone] PCP - General Physician Electric Motor Repairman 02/26/24 documented as of this encounter Additional Source Comments The information contained in this document represents components of the legal health record. It is not the complete legal health record.[facility]
--- OUTSIDE RECORDS SUMMARY | 2025-05-13 07:15 | XMS_ITS | Encounter Summary ---
Author Organization [facility] Address [address] [facility] [address] [place] [address] Phone Care Team Providers Care Railroad Switchman Name Role Phone Mesha Peña NP Primary Care Provider Marcie Pyle Primary Care Provider [phone] Encounter Details Date Type Department Care Team (Late st Contact Info) Description 12/14/2021 Procedure Pass [facility], Ct Scan - [facility] [address] [place] [address] Social History Tobacco Use Types Packs/Day Years [...] 9:19 PM EDT Yane Nye RN * Baxter Suicide Severity Rating Scale (Screener/Recent Self-Report) Question [...] Description 05/26/2025 1:30 PM EST Office Visit [facility] Rheumatology 22 [place] [address] Keely Hager MD [address] [facility], [address] [place] [address] 07/12/2025 11:45 AM EST Office Visit [facility] Gastroenterology Clinic 10 [place] [address] Brandy Alberto CNP [address] [address] 10/04/2025 9:45 AM EDT Appointment [facility], Bone Density - [facility] [address] [place] [address] Marcie Pyle PA [address] [place] [phone] documented as of this encounter Visit Diagnoses Not on filedocumented in this encounter Additional Health Concerns Infection Onset Date Last Indicated Resolved Time CoV-Risk 08/31/2022 08/31/2022 08/31/2022 10:1 8 PM EST COVID-19 08/31/2022 08/31/2022 09/21/2022 1:21 AM EDT documented as of this encounter Care Teams Railroad Switchman Relationship Specialty Start Date End Date Mesha Peña NP [address] [place] [address] PCP - General 04/24/17 02/25/24 Marcie Pyle PA [address] [place] [phone] PCP - General Physician Risk Investigator 02/26/24 documented as of this encounter Additional Source Comments The information contained in this document represents components of the legal health record. It is not the complete legal health record.[facility]
--- OUTSIDE RECORDS SUMMARY | 2025-05-13 07:16 | XMS_ITS | Encounter Summary ---
Author Organization [facility] Address [address] [facility] [address] [place] [address] Phone Care Team Providers Care Rn Team Leader Name Role Phone Mesha Peña NP Primary Care Provider [phone] Marcie Pyle Primary Care Provider [phone] Encounter Details Date Type Department Care Team (Latest Contact Info) Description 05/17/2021 Transcribe Orders Virtual Department [address] [place] [address] Brandy Alberto NP [address] [place] [address] Abdominal pain, unspecified abdominal location (Primary Dx); Nausea Social History Tobacco Use Types Packs/Day Years [...] 1:30 PM EST Office Visit [facility] Rheumatology [address] [place] [address] Keely Hager MD 22 [facility], [address] [place] [address] 07/12/2025 11:45 AM EST Office Visit [facility] Gastroenterology Clinic 10 [place] [address] Brandy Alberto, ANSHUL 10 [facility] 2 [place] [address] 10/04/2025 9:45 AM EDT Appointment [facility], Bone [facility] [address] [place] [address] Marcie Pyle PA [address] [place] [phone] documented as of this encounter Results * US Abdomen Complete (05/25/2021 12:02 PM EST) Anatomical Region Laterality Modality Abdomen Ultrasound 05/25/2021 12:3 1 PM EST Impressions 05/25/2021 12:35 PM EST Limited study due to patient body habitus. No biliary tree abnormality or source of the patient's pain detected. Narrative 05/25/2021 12:35 PM EST COMPARISON: CT March 23, 2019 without contrast TECHNIQUE: Ultrasonic examination of the abdomen was performed and multiple static images and cine sweeps obtained. FINDINGS: Pancreas: Largely obscured. Upper Aorta and IVC: No finding of concern detected in the visualized portions. Gallbladder and Biliary tree: No abnormality detected. Common bile duct measured at 6 mm. Liver: Poorly visualized due to some costal position and difficult to penetrate with increased echogenicity relative to renal cortex suggesting hepatic steatosis. Spleen: Homogeneous and unenlarged. It is measured at 0.6 cm in length. Kidneys: No stone or solid mass is detected. There is no hydronephrosis. Parapelvic cysts noted on the left. These measure under 2 cm. Both kidneys measured approximately 12 1/2 cm. No perinephric fluid collections. 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 Other: No ascites. Main portal vein is patent and hepatopetal. Procedure Note Riky Rios MD - 05/25/2021 COMPARISON: CT March 23, 2019 without contrast TECHNIQUE: Ultrasonic examination of the abdomen was performed andmultiple static images and cine sweeps obtained. FINDINGS: Pancreas: Largely obscured. Upper Aorta and IVC: No finding of concern detected in the visualizedportions. Gallbladder and Biliary tree: No abnormality detected. Common bile ductmeasured at 6 mm. Liver: Poorly visualized due to some costal position and difficult topenetrate with increased echogenicity relative to renal cortex suggestinghepatic steatosis. Spleen: Homogeneous and unenlarged. It is measured at 0.6 cm in length. Kidneys: No stone or solid mass is detected. There is no hydronephrosis.Parapelvic cysts noted on the left. These measure under 2 cm. Both kidneysmeasured approximately 12 1/2 cm. No perinephric fluid collections. 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 Other: No ascites. Main portal vein is patent and hepatopetal. IMPRESSION: Limited study due to patient body habitus. No biliary tree abnormality orsource of the patient's pain detected. us Brandy Alberto NP IMG US ABDOMEN Final Res ult documented in this encounter Visit Diagnoses Diagnosis Abdominal pain, unspecified abdominal location- Primary Nausea Nausea alone Abdominal pain, unspecified abdominal location Nausea Nausea alone documented in this encounter Additional Health Concerns Infection Onset Date Last Indicated Resolved Time CoV-Risk 08/31/2022 08/31/2022 08/31/2022 10:1 8 PM EST COVID-19 08/31/2022 08/31/2022 09/21/2022 1:21 AM EDT documented as of this encounter Care Teams Rn Team Leader Relationship Specialty Start Date End Date Mesha Peña NP [address] [place] [address] PCP - General 04/24/17 02/25/24 Marcie Pyle PA [address] [place] [address] PCP - General Physician Yoghurt Maker 02/26/24 documented as of this encounter Additional Source Comments The information contained in this document represents components of the legal health record. It is not the complete legal health record.[facility]
--- OUTSIDE RECORDS SUMMARY | 2025-05-13 07:16 | XMS_ITS | Encounter Summary ---
Author Organization [facility] Address [address] [facility] [address] [place] [address] Phone Care Team Providers Care Signs And Displays Sales Representative Name Role Phone Mesha Peña NP Primary Care Provider [phone] Marcie Pyle Primary Care Provider [phone] Reason for Referral * MRI/CAT Scan - Closed Specialty Diagnoses / Procedures Referred By Austin chacon Referred To Contact Radiology Diagnoses Memory loss Weakness Ataxia Procedures MRI Brain Aron Archuleta MD Phone: tel: fax: mailto:[email or web address] Referral ID Status Reason Start Date Expiration Date Visits Re quested Visits Authorized [id number] Closed 12/17/2018 12/17/2019 1 1 Encounter Details Date Type Department Care Team (Latest Contact Info) Description 12/17/2018 Transcribe Orders Virtual Department 30 [place] [address] Aron Archuleta MD [address] [place] [address], [address] [place] [address] [email or web address]. [employer] Memory loss (Primary Dx); Weakness; Ataxia Social History Tobacco Use Types Packs/Day Years Used Date Smoking Tobacco: Former Cigarettes 1 20 1 2013 Smokeless Tobacco: Never Alcohol Use [...] Description 05/26/2025 1:30 PM EST Office Visit [facility] Rheumatology 22 [place] [address] Keely Hager MD [address] [facility], [address] [place] [address] 07/12/2025 11:45 AM EST Office Visit [facility] G[facility]enterology Clinic 10 [place] [address] Brandy Alberto, ANSHUL [address] [address] 10/04/2025 9:45 AM EDT Appointment [facility], Bone Density [facility] 30 [place] [address] Marcie Pyle PA [address] [place] [phone] documented as of this encounter Results * MRI BRAIN WITHOUT CONTRAST (12/29/2018 6:11 PM EDT) Anatomical Region Laterality Modality Head Magnetic Resonan ce 12/29/2018 11:1 1 PM EDT Impressions 12/29/2018 11:16 PM EDT 1. No acute intracranial abnormality. 2. Mild brain volume loss. 3. Nonspecific white matter changes, essentially unchanged from 2018. POS - [id number] Narrative 12/29/2018 11:16 PM EDT EXAM: MRI BRAIN WITHOUT CONTRAST COMPARISON: Head CT on June 22, 2018. Brain MRI on December 26, 2017. TECHNIQUE: Exam performed on a 1.5 Soco high-field MRI scanner. Axial T1, T2, T2*, T2 FLAIR and diffusion-weighted imaging with ADC map, sagittal T1 sequences were obtained. FINDINGS: Ventricles, Sulci and extra axial spaces: The ventricles, sulci and cisterns are patent and prominent in keeping with age-related volume loss without hydrocephalous. Brain Parenchyma: No restricted diffusion, hemorrhage, mass or shift of midline structures seen. Scattered and confluent T2/FLAIR hyperintensity in the white matter of bilateral cerebral hemispheres, essentially unchanged from prior MR study in 2018. Vascular: The major intracranial vessels show normal flow related signal void. Skull Base: Sellar/parasellar structures, pineal gland region and craniovertebral junction are unremarkable. Orbits: The orbits are unremarkable. Paranasal sinuses: No significant inflammatory changes present in the paranasal sinuses and mastoid air cells. Bones and soft tissues: Grossly unremarkable. Procedure Note Sandrita Limon MD - 12/29/2018 EXAM: MRI BRAIN WITHOUT CONTRAST COMPARISON: Head CT on June 22, 2018. Brain MRI on December 26, 2017. TECHNIQUE: Exam performed on a 1.5 Soco high-field MRI scanner. AxialT1, T2, T2*, T2 FLAIR and diffusion-weighted imaging with ADC map,sagittal T1 sequences were obtained. FINDINGS: Ventricles, Sulci and extra axial spaces: The ventricles, sulci andcisterns are patent and prominent in keeping with age-related volume losswithout hydrocephalous. Brain Parenchyma: No restricted diffusion, hemorrhage, mass or shift ofmidline structures seen. Scattered and confluent T2/FLAIR hyperintensityin the white matter of bilateral cerebral hemispheres, essentiallyunchanged from prior MR study in 2018. Vascular: The major intracranial vessels show normal flow related signalvoid. Skull Base: Sellar/parasellar structures, pineal gland region andcraniovertebral junction are unremarkable. Orbits: The orbits are unremarkable. Paranasal sinuses: No significant inflammatory changes present in theparanasal sinuses and mastoid air cells. Bones and soft tissues: Grossly unremarkable. IMPRESSION: 1. No acute intracranial abnormality. 2. Mild brain volume loss. 3. Nonspecific white matter changes, essentially unchanged from 2018. POS - [id number] Aron Archuleta MD IMG MR HEAD/NECK Final Resul t documented in this encounter Visit Diagnoses Diagnosis Memory loss- Primary Weakness Other malaise and fatigue Ataxia Lack of coordination Memory loss Weakness Other malaise and fatigue Ataxia Lack of coordination documented in this encounter Additional Health Concerns Infection Onset Date Last Indicated Resolved Time CoV-Risk 01/05/2020 01/05/2020 01/19/2020 1:23 AM EDT CoV-Risk 08/31/2022 08/31/2022 08/31/2022 10:1 8 PM EST COVID-19 08/31/2022 08/31/2022 09/21/2022 1:21 AM EDT documented as of this encounter Care Teams Signs And Displays Sales Representative Relationship Specialty Start Date End Date Mesha Peña NP 70 [place] [address] PCP - General 04/24/17 02/25/24 Marcie Pyle PA [address] [place] [address] PCP - General Physician Email Marketing Specialist 02/26/24 documented as of this encounter Additional Source Comments The information contained in this document represents components of the legal health record. It is not the complete legal health record.[facility]
--- OUTSIDE RECORDS SUMMARY | 2025-05-13 07:16 | XMS_ITS | Encounter Summary ---
Author Organization [facility] Address [address] [facility] [address] [place] [address] Phone Care Team Providers Care Armament Installer Name Role Phone Mesha Peña NP Primary Care Provider [phone] Marcie Pyle Primary Care Provider [phone] Reason for Referral * Occupational Therapy (Routine) - Closed Specialty Diagnoses / Procedures Referred By Austin chacon Referred To Contact Occupational Therapy Diagnoses Encounter for rehabilitation Mesha Peña NP Phone: tel: [facility] [address] [place] [address] Phone: tel: Referral ID Status Reason Start Date Expiration Date Visits Re quested Visits Authorized [id number] Closed 08/16/2021 08/16/2022 99 99 Encounter Details Date Type Department Care Team (Latest Contact Info) Description 08/16/2021 Transcribe Orders [facility] Rehabilitation Services [address] [place] [address] Mesha Peña NP [address] [place], [place] [id number] Encounter for rehabilitation (Primary Dx) Social History Tobacco Use Types [...] Description 05/26/2025 1:30 PM EST Office Visit [facility] Rheumatology 22 [place] [address] Keely Hager MD [address] [facility], [address] [place] [address] 07/12/2025 11:45 AM EST Office Visit [facility] Gastroenterology Clinic 10 [place] [address] Brandy Alberto CNP [address] [address] 10/04/2025 9:45 AM EDT Appointment [facility], Bone Density - [facility] 30 [place] [address] Marcie Pyle PA [address] [place] [phone] Scheduled Referrals Name Type Priority Associated Diagnoses Orde r Schedule Ambulatory referral to [facility] Occupational Therapy Outpatient Referral Routine Encounter for rehabilitation Ordered: 08/16/2021 documented as of this encounter Visit Diagnoses Diagnosis Encounter for rehabilitation- Primary documented in this encounter Additional Health Concerns Infection Onset Date Last Indicated Resolved Time CoV-Risk 08/31/2022 08/31/2022 08/31/2022 10:1 8 PM EST COVID-19 08/31/2022 08/31/2022 09/21/2022 1:21 AM EDT documented as of this encounter Care Teams Armament Installer Relationship Specialty Start Date End Date Mesha Peña NP [address] [place] [address] PCP - General 04/24/17 02/25/24 Marcie Pyle PA [address] [place] [phone] PCP - General Physician Patient Ambassador 02/26/24 documented as of this encounter Additional Source Comments The information contained in this document represents components of the legal health record. It is not the complete legal health record.[facility]
--- OUTSIDE RECORDS SUMMARY | 2025-05-13 07:16 | XMS_ITS | Encounter Summary ---
Author Organization [facility] Address [address] [facility] [address] [place] [address] Phone Care Team Providers Care Start Up Specialist Name Role Phone Mesha Peña NP Primary Care Provider Marcie Pyle Primary Care Provider [phone] Encounter Details Date Type Department Care Team (Late Contact Info) Description 12/06/2021 Transcribe Orders Virtual Department 30 [place] [address] Michael Ceballos PA [address] [place] [phone] [email or web address] Right elbow pain (Primary Dx) Social History Tobacco Use Types [...] Description 05/26/2025 1:30 PM EST Office Visit [facility] Rheumatology 22 [place] [address] Keely Hager MD [address] [facility], [address] [place] [address] 07/12/2025 11:45 AM EST Office Visit [facility] Gastroenterology Clinic 10 [place] [address] Brandy Alberto, ANSHUL [address] [address] 10/04/2025 9:45 AM EDT Appointment [facility], Bone Density - [address] [address] Marcie Pyle PA [address] [place] [phone] documented as of this encounter Visit Diagnoses Diagnosis Right elbow pain- Primary Pain in joint, upper arm documented in this encounter Additional Health Concerns Infection Onset Date Last Indicated Resolved Time CoV-Risk 08/31/2022 08/31/2022 08/31/2022 10:1 8 PM EST COVID-19 08/31/2022 08/31/2022 09/21/2022 1:21 AM EDT documented as of this encounter Care Teams Start Up Specialist Relationship Specialty Start Date End Date Mesha Peña NP 70 [place] [address] PCP - General 04/24/17 02/25/24 Marcie Pyle PA [address] [place] [phone] PCP - General Physician Back Tender Fourdrinier 02/26/24 documented as of this encounter Additional Source Comments The information contained in this document represents components of the legal health record. It is not the complete legal health record.[facility]
--- OUTSIDE RECORDS SUMMARY | 2025-05-13 07:16 | XMS_ITS | Encounter Summary ---
Author Organization [facility] Address [address] [facility] [address] [place] [address] Phone Care Team Providers Care Farm Implement Mechanic Name Role Phone Mesha Peña NP Primary Care Provider [phone] Marcie Pyle Primary Care Provider [phone] Encounter Details Date Type Department Care Team (Late st Contact Info) Description 01/02/2018 Procedure Pass [facility], Ct Scan - [address] [address] Social History Tobacco Use Types Packs/Day Years [...] Description 05/26/2025 1:30 PM EST Office Visit [facility] Rheumatology [address] [place] [address] Keely Hager MD [address] [facility], [address] [place] [address] 07/12/2025 11:45 AM EST Office Visit [facility] Gastroenterology Clinic 10 [place] [address] Brandy Alberto, ANSHUL [address] [address] 10/04/2025 9:45 AM EDT Appointment [facility], Bone Density - [facility] 30 [place] [address] Marcie Pyle PA [address] [place] [phone] documented as of this encounter Visit Diagnoses Not on filedocumented in this encounter Additional Health Concerns Infection Onset Date Last Indicated Resolved Time CoV-Risk 01/05/2020 01/05/2020 01/19/2020 1:23 AM EDT CoV-Risk 08/31/2022 08/31/2022 08/31/2022 10:1 8 PM EST COVID-19 08/31/2022 08/31/2022 09/21/2022 1:21 AM EDT documented as of this encounter Care Teams Farm Implement Mechanic Relationship Specialty Start Date End Date Mesha Peña NP 70 [place] [address] PCP - General 04/24/17 02/25/24 Marcie Pyle PA [address] [place] [phone] PCP - General Physician Broadcast Operations Director 02/26/24 documented as of this encounter Additional Source Comments The information contained in this document represents components of the legal health record. It is not the complete legal health record.[facility]
--- OUTSIDE RECORDS SUMMARY | 2025-05-13 07:16 | XMS_ITS | Encounter Summary ---
Author Organization [facility] Address [address] [facility] [address] [place] [address] Phone Care Team Providers Care Audit Consultant Name Role Phone Mesha Peña NP Primary Care Provider Marcie Pyle Primary Care Provider [phone] Encounter Details Date Type Department Care Team (Late st Contact Info) Description 12/17/2018 Procedure Pass [facility], [address] [address] Social History Tobacco Use Types Packs/Day Years [...] Description 05/26/2025 1:30 PM EST Office Visit [facility] Rheumatology [address] [place] [address] Keely Hager MD [address] [facility], [address] [place] [address] 07/12/2025 11:45 AM EST Office Visit [facility] Gastroenterology Clinic 10 [place] [address] Brandy Alberto, ANSHUL [address] [address] 10/04/2025 9:45 AM EDT Appointment [facility], Bone Density - [facility] 30 [place] [address] Marcie Pyle PA [address] [place] [phone] documented as of this encounter Visit Diagnoses Not on filedocumented in this encounter Additional Health Concerns Infection Onset Date Last Indicated Resolved Time CoV-Risk 01/05/2020 01/05/2020 01/19/2020 1:23 AM EDT CoV-Risk 08/31/2022 08/31/2022 08/31/2022 10:1 8 PM EST COVID-19 08/31/2022 08/31/2022 09/21/2022 1:21 AM EDT documented as of this encounter Care Teams Audit Consultant Relationship Specialty Start Date End Date Mesha Peña NP 70 [place] [address] PCP - General 04/24/17 02/25/24 Marcie Pyle PA [address] [place] [phone] PCP - General Physician Non Emergency Services Ambulance Driver 02/26/24 documented as of this encounter Additional Source Comments The information contained in this document represents components of the legal health record. It is not the complete legal health record.[facility]
--- OUTSIDE RECORDS SUMMARY | 2025-05-13 07:16 | XMS_ITS | Encounter Summary ---
Author Organization [facility] Address [address] [facility] [address] [place] [address] Phone Care Team Providers Care Photonics Engineer Name Role Phone Mesha Peña NP Primary Care Provider Marcie Pyle Primary Care Provider [phone] Encounter Details Date Type Department Care Team (Late Contact Info) Description 05/22/2021 Procedure Pass [facility] Endoscopy Admitting Dept Virtual Department 30 [place] [address] Social History Tobacco Use Types Packs/Day Years [...] Description 05/26/2025 1:30 PM EST Office Visit [facility] Rheumatology [address] [place] [address] Keely Hager MD [address] [facility], [address] [place] [address] 07/12/2025 11:45 AM EST Office Visit [facility] Gastroenterology Clinic 10 [place] [address] Brandy Alberto, ANSHUL [address] [address] 10/04/2025 9:45 AM EDT Appointment [facility], Bone Density - [facility] 30 [place] [address] Marcie Pyle PA [address] [place] [address] documented as of this encounter Visit Diagnoses Not on filedocumented in this encounter Additional Health Concerns Infection Onset Date Last Indicated Resolved Time CoV-Risk 08/31/2022 08/31/2022 08/31/2022 10:1 8 PM EST COVID-19 08/31/2022 08/31/2022 09/21/2022 1:21 AM EDT documented as of this encounter Care Teams Photonics Engineer Relationship Specialty Start Date End Date Mesha Peña NP 70 [place] [address] PCP - General 04/24/17 02/25/24 Marcie Pyle PA [address] [place] [phone] PCP - General Physician Filteration Operator 02/26/24 documented as of this encounter Additional Source Comments The information contained in this document represents components of the legal health record. It is not the complete legal health record.[facility]
--- OUTSIDE RECORDS SUMMARY | 2025-05-13 07:16 | XMS_ITS | Encounter Summary ---
Author Organization [facility] Address [address] [facility] [address] [place] [address] Phone Care Team Providers Care Retort Firer Name Role Phone Mesha Peña NP Primary Care Provider [phone] Marcie Pyle Primary Care Provider [phone] Encounter Details Date Type Department Care Team (Latest Contact Info) Description 05/18/2021 Transcribe Orders Virtual Department 30 [place] [address] Brandy Alberto NP [address] [place] [address] Encounter for laboratory testing for COVID-19 virus [...] 05/26/2025 1:30 PM EST Office Visit [facility] Rheumatology [address] [place] [address] Keely Hager MD 22 [facility], [address] [place] [address] 07/12/2025 11:45 AM EST Office Visit [facility] Gastroenterology Clinic 10 [place] [address] Brandy Alberto, ANSHUL [address] [address] [email or web address] 10/04/2025 9:45 AM EDT Appointment [facility], Bone Density - [address] [address] Marcie Pyle PA 238 [place] [phone] documented as of this encounter Results * COVID-19 PCR Order (05/20/2021 1:34 PM EST) COVID-19 Comment [id number] [facility] COVID Testing Status Sent to [facility] Other 05/20/2021 1:34 PM EST 05/20/2021 6:03 PM EST us Brandy Alberto STAFF FIELD ENGINEER LAB GENERAL ORDERABLES Fi nal Result [address] [address] documented in this encounter Visit Diagnoses Diagnosis Encounter for laboratory testing for COVID-19 virus- Primary documented in this encounter Additional Health Concerns Infection Onset Date Last Indicated Resolved Time CoV-Risk 08/31/2022 08/31/2022 08/31/2022 10:1 8 PM EST COVID-19 08/31/2022 08/31/2022 09/21/2022 1:21 AM EDT documented as of this encounter Care Teams Retort Firer Relationship Specialty Start Date End Date Mesha Peña NP 70 [place] [address] PCP - General 04/24/17 02/25/24 Marcie Pyle PA [address] [place] [phone] PCP - General Physician Laboratory Technical Specialist 02/26/24 documented as of this encounter Additional Source Comments The information contained in this document represents components of the legal health record. It is not the complete legal health record.[facility]
--- OUTSIDE RECORDS SUMMARY | 2025-05-13 07:16 | XMS_ITS | Encounter Summary ---
Author Organization [facility] Address [address] [facility] [address] [place] [address] Phone Care Team Providers Care Research Program Intern Name Role Phone Mesha Peña NP Primary Care Provider Marcie Pyle Primary Care Provider [phone] Encounter Details Date Type Department Care Team (Late st Contact Info) Description 12/10/2017 Procedure Pass [facility], [address] [address] Social History Tobacco Use Types Packs/Day Years [...] Description 05/26/2025 1:30 PM EST Office Visit [facility] Rheumatology [address] [place] [address] Keely Hager MD [address] [facility], [address] [place] [address] 07/12/2025 11:45 AM EST Office Visit [facility] Gastroenterology Clinic 10 [place] [address] Brandy Alberto, ANSHUL [address] [address] 10/04/2025 9:45 AM EDT Appointment [facility], Bone Density - [facility] 30 [place] [address] Marcie Pyle PA [address] [place] [address] documented as of this encounter Visit Diagnoses Not on filedocumented in this encounter Additional Health Concerns Infection Onset Date Last Indicated Resolved Time CoV-Risk 01/05/2020 01/05/2020 01/19/2020 1:23 AM EDT CoV-Risk 08/31/2022 08/31/2022 08/31/2022 10:1 8 PM EST COVID-19 08/31/2022 08/31/2022 09/21/2022 1:21 AM EDT documented as of this encounter Care Teams Research Program Intern Relationship Specialty Start Date End Date Mesha Peña NP 70 [place] [address] PCP - General 04/24/17 02/25/24 Marcie Pyle PA [address] [place] [phone] PCP - General Physician Manager Desktop 02/26/24 documented as of this encounter Additional Source Comments The information contained in this document represents components of the legal health record. It is not the complete legal health record.[facility]
--- OUTSIDE RECORDS SUMMARY | 2025-05-13 07:17 | XMS_ITS | Encounter Summary ---
Author Organization [facility] Address [address] [facility] [address] [place] [address] Phone Care Team Providers Care Finance Effectiveness Manager Name Role Phone Mesha Peña INSTRUCTIONAL TECHNOLOGY SPECIALIST Primary Care Provider Marcie Pyle Primary Care Provider [phone] Encounter Details Date Type Department Care Team (Latest Contact Info) Description 01/16/2021 Transcribe Orders Virtual Department 30 [place] [address] Mesha Peña NP [address] [place] [address] Dysphagia, unspecified type (Primary Dx) Social History Tobacco Use Types [...] Description 05/26/2025 1:30 PM EST Office Visit [facility] Rheumatology [address] [place] [address] Keely Hager MD 22 [facility] [place], [address] [place] [address] 07/12/2025 11:45 AM EST Office Visit [facility] Gastroenterology Clinic 10 [place] [address] Brandy Alberto, DRY PAN OPERATOR [address] [address] 10/04/2025 9:45 AM EDT Appointment [facility], Bone Density - [facility] [address] [place] [address] Marcie Pyle PA [address] [place] [phone] documented as of this encounter Visit Diagnoses Diagnosis Dysphagia, unspecified type- Primary documented in this encounter Additional Health Concerns Infection Onset Date Last Indicated Resolved Time CoV-Risk 08/31/2022 08/31/2022 08/31/2022 10:1 8 PM EST COVID-19 08/31/2022 08/31/2022 09/21/2022 1:21 AM EDT documented as of this encounter Care Teams Finance Effectiveness Manager Relationship Specialty Start Date End Date Mesha Pñea NP 70 [place] [address] PCP - General 04/24/17 02/25/24 Marcie Pyle PA [address] [place] [phone] PCP - General Physician Air Conditioning Coil Assembler 02/26/24 documented as of this encounter Additional Source Comments The information contained in this document represents components of the legal health record. It is not the complete legal health record.[facility]
--- OUTSIDE RECORDS SUMMARY | 2025-05-13 07:17 | XMS_ITS | Encounter Summary ---
Author Organization [facility] Address [address] [place] [address] Phone Care Team Providers Care Furniture Servicer Name Role Phone Mesha Peña NP Primary Care Provider [phone] Marcie Pyle Primary Care Provider [phone] Reason for Referral * Consultation (Routine) - Closed Specialty Diagnoses / Procedures Referred By Austin chacon Referred To Contact Pulmonary Disease Rosanna Miguel NP [address] [place] [address] Phone: tel: fax: [address] [address] Phone: tel: Referral ID Status Reason Start Date Expiration Date Visits Re quested Visits Authorized [id number] Closed 06/09/2023 06/09/2024 1 1 Encounter Details Date Type Department Care Team (Late st Contact Info) Description 06/09/2023 Transcribe Orders [facility] Pulmonary, Allergy and Critical Care Medicine [address] [facility] [address] [place], [place] [id number] Rosanna Miguel NP [address] [place] [id number] Social History Tobacco Use Types Packs/Day Years [...] Description 05/26/2025 1:30 PM EST Office Visit [facility] Rheumatology [address] [place] [address] Keely Hager MD [address] [facility], [address] [place] [address] 07/12/2025 11:45 AM EST Office Visit [facility] [address] [place] [address] Brandy Alberto, ANSHUL [address] [address] 10/04/2025 9:45 AM EDT Appointment [facility] [address] [place] [address] Marcie Pyle PA [address] [place] [address] Scheduled Referrals Name Type Priority Associated Diagnoses Order Schedule Ambulatory referral to [facility] Pulmonology Outpatient Referral Routine Ordered: 06/09/2023 documented as of this encounter Visit Diagnoses Not on filedocumented in this encounter Care Teams Furniture Servicer Relationship Specialty Start Date End Date Mesha Peña NP [address] [place] [id number] PCP - General 04/24/17 02/25/24 Marcie Pyle PA [address] [place] [phone] PCP - General Physician Guard Driver 02/26/24 documented as of this encounter Additional Source Comments The information contained in this document represents components of the legal health record. It is not the complete legal health record.[facility]
[2025-05-13 07:42] LABS: MANUAL DIFF FLAG NO
[2025-05-13 07:45] LABS: Hematocrit 38.4 % (37.0-47.0); Hemoglobin 12.0 g/dl (12.0-16.0); Imm Gran Abs Auto 0.02 X10*3/uL (0.00-0.03); Imm Gran Pct Auto 0.3 % (0.0-0.4); Lymphocytes Absolute Auto 1.6 X10*3/uL (1.2-4.9); Mean Corpuscular HGB Conc 31.3 g/dl (31.0-35.0); Mean Corpuscular Hemoglobin 27.8 pg (27.0-33.0); Mean Corpuscular Volume 89.1 fL (80.0-98.0); NRBC Abs Auto 0.000 X10*3/uL (0.0-0.012); NRBC Pct Auto 0.0 /100WBC (0.0-0.2); Platelet Count 439 X10*3/uL (160-400); Red Blood Count 4.31 X10*6/uL (4.20-5.50); White Blood Count 7.2 X10*3/uL (4.8-10.8)
[2025-05-13 07:54] LABS: INTERNATIONAL NORM RATIO 1.2 (0.9-1.1); Prothrombin Time 14.1 SEC (11.2-13.5)
[2025-05-13 07:56] LABS: Partial Thromboplastin Time 26.5 SEC (26.7-34.1)
[2025-05-13 08:01] LABS: Anion Gap 10 (12-20)
[2025-05-13 08:08] LABS: Alanine Aminotransferase 17 U/L (0-31); Albumin Level 3.6 g/dL (3.5-5.0); Alkaline Phosphatase 113 U/L (39-117); Aspartate Amino Transferase 34 U/L (5-31); Blood Urea Nitrogen 25 mg/dL (9-16); Calcium 9.0 mg/dL (8.4-10.2); Carbon Dioxide 27 mmol/L (22-29); Chloride 109 mmol/L (96-108); Creatinine Clr Calc Pharmacy 88.9; Estimated Glomerular Filt Rate > 60; Magnesium 2.0 mg/dL (1.6-2.6); Potassium 4.4 mmol/L (3.3-5.1); Sodium 142 mmol/L (135-145); Total Protein 7.4 g/dL (6.5-8.0); Troponin-I High Sensitivity 3.4 ng/L (<3.5-17.0)
--- NOTE | 2025-05-13 08:19 | PC.NURSE ---
assumed care of pt at 0645. pt alert and oriented to self/event. otherwise not oriented to place/year (baseline per program aide group work). vss and up to date. nsr on the composite assembler. pt presents to the ED s/p witnessed fall out of bed. pt is in a wheelchair baseline d/t hx of TBI. pt reports she was being assisted OOB w/ transfer and slid on her bottom. pt reporting chest pain w/ associated productive cough and worsening chronic right knee pain s/p fall. no trauma noted. 20gIV in the left AC via EMS - patent/intact. labs/ekg obtained. CXR/knee XR completed - results pending. pt otherwise on RA w/o difficulty - no sob/wob noted. respirations even/unlabored. [facility] staff member bedside. plan of care ongoing. call gonsales placed within reach.
--- NOTE | 2025-05-13 09:07 | ED.CHESTPAIN ---
HPI - Chest Pain General Chief Complaint: Chest Pain Stated Complaint: SLID OUT OF RECLINER,C/O LEG PAIN FROM [facility] HOME Time Seen by Provider: 05/13/25 08:48 Source: patient Mode of arrival: ambulatory Limitations: no limitations History of Present Illness ED Provider: Clement Moran HPI narrative: 64 yold female with pmh of traumatic brain injury, asth and is on eliquis presents to the ED for right posterior lower right knee pain and chest pain after due to fall. As per skilled nursing 8 patient is usually is cyst transfer from recliner to wheelchair, but patient has decided to try to move for herself and she states her right knee gave out which caused her to fall onto her right side. Patient denies hitting her head, or having any hip pain. Patient denies any nausea vomiting. Patient states history of distal femur fracture in the past. Related Data Home Medications ?Medication ?Instructions ?Recorded ?Confirmed celecoxib 200 mg capsule 200 mg PO SUMOTUWETHFR@0800 09/23/23 05/13/25 famotidine 40 mg tablet 40 mg PO BEDTIME 09/23/23 05/13/25 fluticasone propionate 50 2 spray intranasal DAILY 09/23/23 05/13/25 mcg/actuation nasal spray,suspension haloperidol 5 mg tablet 5 mg PO BEDTIME 09/23/23 05/13/25 hydroxychloroquine 200 mg tablet 200 mg PO BID 09/23/23 05/13/25 acetaminophen 325 mg tablet 650 mg PO Q6H PRN Fever Or Pain 05/13/25 05/13/25 albuterol sulfate 90 mcg/actuation 2 puff inhalation Q4H PRN 05/13/25 05/13/25 aerosol inhaler (Ventolin HFA) Shortness Of Breath Or Wheezing apixaban 5 mg tablet (Eliquis) 5 mg PO BID 05/13/25 05/13/25 aripiprazole 30 mg tablet 30 mg PO DAILY 05/13/25 05/13/25 aripiprazole 5 mg tablet 5 mg PO DAILY 05/13/25 05/13/25 aspirin 81 mg tablet 81 mg PO DAILY 05/13/25 05/13/25 calcium carbonate 1,500 mg PO Q8H PRN Heartburn 05/13/25 05/13/25 carboxymethylcellulose sodium 1 % 1 drp ophthalmic (eye) TID 05/13/25 05/13/25 eye liquid gel drops celecoxib 200 mg capsule 200 mg PO FR@1200 05/13/25 05/13/25 cholecalciferol (vitamin D3) 50 50 mcg PO DAILY 05/13/25 05/13/25 mcg (2,000 unit) tablet (Vitamin D3) eyelid cleanser combination 5 1 pad topical BEDTIME 05/13/25 05/13/25 (OcuSoft Lid Scrub topical pads) folic acid 1 mg tablet 1 mg PO DAILY 05/13/25 05/13/25 ketoconazole 2 % topical cream 1 appl topical BID 05/13/25 05/13/25 methotrexate sodium 2.5 mg tablet 20 mg PO FR 05/13/25 05/13/25 multivitamin (Daily-Jerry tablet) 1 tab PO DAILY 05/13/25 05/13/25 nitrofurantoin macrocrystal 50 mg 50 mg PO DAILY 05/13/25 05/13/25 capsule nystatin 100,000 unit/gram topical 1 appl topical Q6H PRN Rash 05/13/25 05/13/25 powder (Nyamyc) omega 5-xas-kom-fish oil 1,000 mg 1 cap PO DAILY 05/13/25 05/13/25 (120 mg-180 mg) capsule (Fish Oil) omeprazole 20 mg capsule,delayed 20 mg PO DAILY@0630 05/13/25 05/13/25 release trazodone 100 mg tablet 100 mg PO BEDTIME 05/13/25 05/13/25 umeclidinium 62.5 mcg/actuation 1 inh inhalation DAILY 05/13/25 05/13/25 blister powder for inhalation (Incruse Ellipta) white petrolatum-mineral oil 57.3 1 appl ophthalmic (eye) BEDTIME 05/13/25 05/13/25 %-42.5 % eye ointment (Refresh P.M.) zinc oxide-cod liver oil 40 % 1 appl topical BID 05/13/25 05/13/25 topical paste (Desitin) Previous Rx's ?Medication ?Instructions ?Recorded carvedilol 6.25 mg tablet 6.25 mg PO BID 90 days #180 tabs 05/14/25 valsartan 40 mg tablet 40 mg PO BID 90 days #180 tabs 05/14/25 Allergies Allergy/AdvReac Type Severity Reaction Status Date / Time erythromycin base Allergy Swelling Verified 05/13/25 06:46 Review of Systems Review of Systems: RIght lower thigh, posterior knee pain after fall. Yes all other systems are reviewed and are negative [facility] Past Medical History Medical History COPD (chronic obstructive pulmonary disease) TBI (traumatic brain injury) Social History Social History Household Members: Unknown / Unable to assess Housing: Unknown / Unable to assess Patient Tobacco Use Status: Never used Tobacco Second Hand Smoke Exposure: No Advance Directives Date on File: 05/13/25 service: No Physical Exam Vital Signs: Vital Signs: Last Vital Signs Temp 97.5 F 05/14/25 11:27 Pulse 65 05/14/25 11:27 Resp 18 05/14/25 11:27 BP 172/73 H 05/14/25 11:27 Pulse Ox 96 05/14/25 11:27 O2 Del Method Room Air 05/14/25 11:27 BMI result Body Mass Index 39.0 Const: General: cooperative, healthy appearing, comfortable, no acute distress, well developed, alert, awake and Physically active Orientation/consciousness: patient oriented x3 HEENT: Head: Yes normal to inspection, Yes No palpable skull fracture present, Yes normocephalic and Yes atraumatic Eyes: General: appearance normal, both eyes and all related structures Neck: Neck: Yes normal visual inspection, Yes full ROM, Yes no lymphadenopathy, Yes no meningeal signs, Yes trachea midline, Yes supple, No anterior neck swelling and No tender Chest: Chest palpation & inspection: normal inspection of the chest and normal palpation of entire chest wall Resp: Effort & Inspection: normal respiratory effort and able to speak in complete sentences Auscultation: clear to auscultation bilaterally Cardio: Jugular venous distension: no JVD Heart sounds: S1 normal heart sound present and S2 normal heart sound present GI: Inspection: Yes normal to inspection Palpation (GI): Soft to palpation, not firm, nontender, no guarding and not rigid : General: Yes no CVA tenderness Back/Spine/Pelvis: Back: no CVA tenderness and No back tenderness Skin: General skin exam: no rashes or lesions noted, elasticity normal and turgor normal Neuro: Other: wheel chair bound General: patient oriented x3, tone normal, moves all extremities, Normal light touch and pain sensation, no meningeal signs, no focal motor deficits, CN's II-XI intact bilaterally and normal sensation to monofilament Extrem: General: Yes normal to inspection, Yes full ROM and Yes capillary refill normal Knee images:  1. positive for lateral femoral condyle tenderness where patient had distal femur fracture in the past. Negative for deformity or erythema. Rest of extremity normal. For calf tenderness, leg swelling, popliteal tenderness, ulcers, crepitus, or red streaks. Vascular motor neuro exam intact Psych: Appearance: grossly normal, well kempt and not disheveled Medications Administered Discontinued Medications Generic Name Dose Route Start Last Admin Trade Name Freq PRN Reason Stop Dose Admin Acetaminophen 650 mg 05/13/25 17:39 05/13/25 21:59 Acetaminophen 325 Mg Tablet PO 650 mg Q6H PRN Administration Pain, Mild 1-3,fever,headache Apixaban 5 mg 05/13/25 21:00 05/14/25 09:30 Apixaban 5 Mg Tablet PO 5 mg BID JOSE Administration Aripiprazole 30 mg 05/14/25 09:00 05/14/25 10:17 Aripiprazole 30 Mg Tablet PO 30 mg DAILY JOSE Administration Aripiprazole 5 mg 05/14/25 09:00 05/14/25 10:16 Aripiprazole 5 Mg Tablet PO 5 mg DAILY JOSE Administration Aspirin 81 mg 05/14/25 09:00 05/14/25 09:26 Aspirin Enteric Coated 81 Mg Tablet. PO 81 mg DAILY JOSE Administration Carvedilol 6.25 mg 05/13/25 21:00 05/14/25 09:23 Carvedilol 6.25 Mg Tablet PO 6.25 mg BID JOSE Administration Protocol Fluticasone Propionate 2 spray 05/14/25 09:00 05/14/25 10:17 Fluticasone Propionate Nasal 16 Gm [place] NOSTRIL-B 2 spray DAILY JOSE Administration Folic Acid 1 mg 05/14/25 09:00 05/14/25 09:30 Folic Acid 1 Mg Tablet PO 1 mg DAILY JOSE Administration Hydroxychloroquine Sulfate 200 mg 05/14/25 09:00 05/14/25 09:27 Hydroxychloroquine Sulfate 200 Mg Tablet PO 200 mg BID JOSE Administration Multivitamins/Vitamin C 1 tab 05/14/25 09:00 05/14/25 09:26 Multivitamin Tablet PO 1 tab DAILY JOSE Administration Nitrofurantoin Macrocrystals 50 mg 05/14/25 09:00 05/14/25 09:24 Nitrofurantoin Macrocrystal 50 Mg Capsule PO 50 mg DAILY JOSE Administration Sodium Chloride 3 ml 05/14/25 00:00 05/14/25 09:30 0.9 % Sodium Chloride Flush 3 Ml Syringe IVFLUSH Not Given QSHIFT [facility] Tiotropium [place] 2 puff 05/14/25 09:00 05/14/25 11:24 Tiotropium [place] 2.5 Mcg 1 Puff/2.5 Mcg Mist.Inhal INHALE 2 puff RDAILY JOSE Administration Valsartan 40 mg 05/13/25 21:00 05/14/25 09:28 Valsartan 40 Mg Tablet PO 40 mg BID JOSE Administration Protocol Vitamin D 50 mcg 05/14/25 09:00 05/14/25 09:25 Cholecalciferol (Vitamin D3) 25 Mcg Tablet PO 50 mcg DAILY JOSE Administration Medical Decision Making Medical Decision Making MDM Narrative: 64-year-old female presents to ED for right distal thigh femur pain after fall. Patient was [place] moved from the recliner in her right knee gave out. Patient denies hitting head but fell on her right side. Patient denies any hip pain. Patient has complete range of motion of bilateral lower extremities. Negative for external internal rotation. Knee x-ray shows age indeterminate possible lateral femoral condyle fracture.. Chest x-ray normal. Patient denies hitting head but because on Eliquis was sent for imaging of the head and neck CAT scan. First troponin negative. 4:31pm: Patient has had 3 troponins drawn which each increased by 50% delta. Third troponin positive at 26. Repeat EKG was done which showed no new changes. Case was discussed with Dr. Yanes the cardiology. He was shown lab results and images of EKG. He was informed of physical exam. He states if no symptoms patient can be discharged. Patient is asymptomatic no chest pain. Case discussed with supervising attending Dr. Cash recommends at least or 4th troponin to make sure is flat. X-ray reading was discussed with BIB Waldrop of Orthopedics possible femoral lateral epicondyle fracture and states if concern should do cat scan of the femur. 3:43pm: Patient's 4th troponin increased by more than 50%. Case was discussed with attending Dr. Cash and also Cardiology Dr. Mahoney. Patient will be admitted for elevated troponin. Case discussed with hospitalist Dr. Gutierrez who recommends adequate D-dimer due to patient having DVT earlier this year. Patient is admitted Differential Diagnosis Differential Diagnoses: The differential diagnosis associated with the presentation includes (Fracture, brain bleed) Admission/Observation Consideration of admission/observation: Escalation of care including admission/observation considered Consult Healthcare Provider Management of the patient was discussed with: Hospitalist (Dr. Cat) and Analytics Intern (Dr. Vogt Cardiology) Lab Data MDM Lab Attestation statement: I reviewed the patient's lab results. 05/14/25 05:52 05/14/25 05:52 Labs: Lab Results 05/13/25 05/13/25 05/13/25 Range/Units 07:37 07:38 10:05 WBC 7.2 (4.8-10.8) X10*3/uL RBC 4.31 (4.20-5.50) X10*6/uL Hgb 12.0 (12.0-16.0) g/dl Hct 38.4 (37.0-47.0) % MCV 89.1 (80.0-98.0) fL MCH 27.8 (27.0-33.0) pg MCHC 31.3 (31.0-35.0) g/dl RDW 16.2 H (11.0-16.0) % Plt Count 439 H (160-400) X10*3/uL MPV 8.9 L (9.4-12.3) fL Immature Gran % (Auto) 0.3 (0.0-0.4) % Neut % (Auto) 59.4 (45-73) % Lymph % (Auto) 22.0 (20-40) % [place] % (Auto) 9.9 (2-11) % Eos % (Auto) 7.3 H (0-4) % Baso % (Auto) 1.1 (0-2) % Lymph # (Auto) 1.6 (1.2-4.9) X10*3/uL [place] # (Auto) 0.7 (0.1-1.2) X10*3/uL Eos # (Auto) 0.5 H (0.0-0.4) X10*3/uL Baso # (Auto) 0.1 (0.0-0.2) X10*3/uL Abs Immat Gran (auto) 0.02 (0.00-0.03) X10*3/uL Absolute Neuts (auto) 4.3 (2.0-8.3) x10*3/uL Absolute Nucleated RBC 0.000 (0.0-0.012) X10*3/uL Nucleated RBC % (auto) 0.0 (0.0-0.2) /100WBC PT 14.1 H (11.2-13.5) SEC INR 1.2 H (0.9-1.1) APTT 26.5 L (26.7-34.1) SEC D-Dimer High Sensitivty 224 NG/ML Sodium 142 (135-145) mmol/L Potassium 4.4 (3.3-5.1) mmol/L Chloride 109 H (96-108) mmol/L Carbon Dioxide 27 (22-29) mmol/L Anion Gap 10 L (12-20) BUN 25 H (9-16) mg/dL Creatinine 0.71 (0.5-1.4) mg/dL Estim Creat Clear Calc 88.9 Estimated GFR > 60 Random Glucose 99 (60-115) mg/dL Calcium 9.0 (8.4-10.2) mg/dL Magnesium 2.0 (1.6-2.6) mg/dL Total Bilirubin 0.2 (0.0-1.0) mg/dL AST 34 H (5-31) U/L ALT 17 (0-31) U/L Alkaline Phosphatase 113 (39-117) U/L Total Creatine Kinase 56 (26-140) U/L Troponin I High Sens 3.4 11.5 D (<3.5-17.0) ng/L Total Protein 7.4 (6.5-8.0) g/dL Albumin 3.6 (3.5-5.0) g/dL 05/13/25 05/13/25 Range/Units 12:16 15:56 WBC (4.8-10.8) X10*3/uL RBC (4.20-5.50) X10*6/uL Hgb (12.0-16.0) g/dl Hct (37.0-47.0) % MCV (80.0-98.0) fL MCH (27.0-33.0) pg MCHC (31.0-35.0) g/dl RDW (11.0-16.0) % Plt Count (160-400) X10*3/uL MPV (9.4-12.3) fL Immature Gran % (Auto) (0.0-0.4) % Neut % (Auto) (45-73) % Lymph % (Auto) (20-40) % [place] % (Auto) (2-11) % Eos % (Auto) (0-4) % Baso % (Auto) (0-2) % Lymph # (Auto) (1.2-4.9) X10*3/uL [place] # (Auto) (0.1-1.2) X10*3/uL Eos # (Auto) (0.0-0.4) X10*3/uL Baso # (Auto) (0.0-0.2) X10*3/uL Abs Immat Gran (auto) (0.00-0.03) X10*3/uL Absolute Neuts (auto) (2.0-8.3) x10*3/uL Absolute Nucleated RBC (0.0-0.012) X10*3/uL Nucleated RBC % (auto) (0.0-0.2) /100WBC PT (11.2-13.5) SEC INR (0.9-1.1) APTT (26.7-34.1) SEC D-Dimer High Sensitivty NG/ML Sodium (135-145) mmol/L Potassium (3.3-5.1) mmol/L Chloride (96-108) mmol/L Carbon Dioxide (22-29) mmol/L Anion Gap (12-20) BUN (9-16) mg/dL Creatinine (0.5-1.4) mg/dL Estim Creat Clear Calc Estimated GFR Random Glucose (60-115) mg/dL Calcium (8.4-10.2) mg/dL Magnesium (1.6-2.6) mg/dL Total Bilirubin (0.0-1.0) mg/dL AST (5-31) U/L ALT (0-31) U/L Alkaline Phosphatase (39-117) U/L Total Creatine Kinase (26-140) U/L Troponin I High Sens 26.6 H D 42.9 H D (<3.5-17.0) ng/L Total Protein (6.5-8.0) g/dL Albumin (3.5-5.0) g/dL Independent Interpretation I performed an independent interpretation of an: EKG (non diagnostic) Independent Historian Clinical information obtained from an independent historian. History obtained from or confirmed by: Other (skilled nursing aide) Discharge Plan Discharge Clinical Impression: Fall Patient Disposition: Admitted As Inpatient Interventions: Admission Worksheet (ED) Last Done: 05/13/25 19:40 Discharge Date/Time: 05/13/25 20:28
[2025-05-13 10:30] LABS: Troponin-I High Sensitivity 11.5 ng/L (<3.5-17.0)
[2025-05-13 12:44] LABS: Troponin-I High Sensitivity 26.6 ng/L (<3.5-17.0)
--- NOTE | 2025-05-13 13:05 | PC.NURSE ---
health safety and environment manager for [facility] - [facility] [phone].
--- NOTE | 2025-05-13 13:10 | MHC.EDTECH ---
pt was found incontinent of urine, balaji care done, linens changes, warm blanket given, call gonsales within reach
--- NOTE | 2025-05-13 13:44 | ECG_ITS ---
Test Reason : ELEVATED TROP Blood Pressure : */* mmHG Vent. Rate : 85 BPM Atrial Rate : 85 BPM P-R Int : 170 ms QRS Dur : 106 ms QT Int : 382 ms P-R-T Axes : 18 1 21 degrees QTcB Int : 454 ms Normal sinus rhythm Minimal voltage criteria for LVH, may be normal variant ( Noel product ) Borderline ECG When compared with ECG of 13-May-2025 07:12, No significant change was found Referred By: Clement Vides Electronically Signed By: Bonifacio Vogt
--- NOTE | 2025-05-13 14:11 | PC.NURSE ---
repeat trop x 3 noted to be elevated. repeat ekg obtained. per provider, cardiology consult pending.
[2025-05-13 16:21] LABS: Troponin-I High Sensitivity 42.9 ng/L (<3.5-17.0)
--- NOTE | 2025-05-13 18:04 | PM.IMHP ---
History of Present Illness Date of Service: 05/13/25 Chief Complaint: fall 64F PMH TBI with dysarthria wheelchair bound, DVT RLE 11/2024 on eliquis, morbid obesity, unspecified inflammatory arthritis on MTX and plaquenil, presented with fall from recliner. Patient is a poor historian, unclear how long she was on the floor. Sent to ED and troponin slowly increased from 3.4 to 43. EKG with no ischemic changes. Trauma workup unremarkable so far but CT of knees pending. Review of Systems Review of Systems: Yes all other systems are reviewed and are negative [facility] Medical History COPD (chronic obstructive pulmonary disease) TBI (traumatic brain injury) Social History Patient Tobacco Use Status: Never used Tobacco Advance Directives: Yes Advance Directives Information Provided: Yes Advance Directives on File: No Nutrition Risks: No Nutritional Risk Meds Allergies Allergy/AdvReac Type Severity Reaction Status Date / Time erythromycin base Allergy Swelling Verified 05/13/25 06:46 Active Medications: Current Medications Acetaminophen (Acetaminophen 325 Mg Tablet) 650 mg PO Q6H PRN PRN Reason: Pain, Mild 1-3,fever,headache Apixaban (Apixaban 5 Mg Tablet) 5 mg PO BID JOSE Calcium Carbonate (Calcium Carbonate 750 Mg Tab.Chew) 750 mg PO Q4H PRN PRN Reason: Heartburn Magnesium Hydroxide (Milk Of Magnesia 30 Ml Oral.Susp) 30 ml PO DAILY PRN PRN Reason: Constipation Melatonin (Melatonin 3 Mg Tablet) 6 mg PO BEDTIME PRN PRN Reason: Insomnia Sodium Chloride (0.9 % Sodium Chloride Flush 3 Ml Syringe) 3 ml IVFLUSH QSHIFT [facility] Home Medications ?Medication ?Instructions ?Recorded ?Confirmed ?Last Taken ?Type aripiprazole 30 mg tablet 30 mg PO DAILY 09/23/23 12/30/24 Unknown History celecoxib 200 mg capsule 200 mg PO DAILY 09/23/23 12/30/24 Unknown History famotidine 40 mg tablet 40 mg PO DAILY 09/23/23 12/30/24 Unknown History fluticasone propionate 50 1 spray intranasal BID 09/23/23 12/30/24 Unknown History mcg/actuation nasal spray,suspension haloperidol 5 mg tablet 5 mg PO BEDTIME 09/23/23 12/30/24 Unknown History hydroxychloroquine 200 mg tablet 200 mg PO BID 09/23/23 12/30/24 Unknown History methotrexate sodium 2.5 mg tablet 20 mg PO QWEEK 09/23/23 12/30/24 Unknown History umeclidinium 62.5 mcg/actuation 1 inh inhalation DAILY 09/23/23 12/30/24 Unknown History blister powder for inhalation (Incruse Ellipta) Physical Exam Vital Signs and Narrative: Vital Signs: Last Vital Signs Temp 98.2 F 05/13/25 18:02 Pulse 97 05/13/25 18:02 Resp 15 05/13/25 18:02 BP 188/87 H 05/13/25 17:28 Pulse Ox 95 05/13/25 18:02 O2 Del Method Room Air 05/13/25 18:02 BMI result Body Mass Index 39.0 General: AO X 2, no acute distress Resp: CTA bilateral, no accessory muscles used CVS: S1,S2,RRR GI: soft, non tender, non distended Neuro: motor grossly intact, alert, dysarthria Right lower extremity swelling, tenderness over right knee Results Labs 05/13/25 07:37 05/13/25 07:37 Labs: Laboratory Results - last 24 hr 05/13/25 05/13/25 05/13/25 07:37 07:38 10:05 MCV 89.1 MCH 27.8 MCHC 31.3 RDW 16.2 H Plt Count 439 H MPV 8.9 L Immature Gran % (Auto) 0.3 Neut % (Auto) 59.4 Lymph % (Auto) 22.0 [place] % (Auto) 9.9 Eos % (Auto) 7.3 H Baso % (Auto) 1.1 Lymph # (Auto) 1.6 [place] # (Auto) 0.7 Eos # (Auto) 0.5 H Baso # (Auto) 0.1 Abs Immat Gran (auto) 0.02 Absolute Neuts (auto) 4.3 Absolute Nucleated RBC 0.000 Nucleated RBC % (auto) 0.0 PT 14.1 H INR 1.2 H APTT 26.5 L Anion Gap 10 L Estim Creat Clear Calc 88.9 Estimated GFR > 60 Random Glucose 99 Calcium 9.0 Magnesium 2.0 Total Bilirubin 0.2 AST 34 H ALT 17 Alkaline Phosphatase 113 Total Creatine Kinase 56 Troponin I High Sens 3.4 11.5 D Total Protein 7.4 Albumin 3.6 05/13/25 05/13/25 12:16 15:56 MCV MCH MCHC RDW Plt Count MPV Immature Gran % (Auto) Neut % (Auto) Lymph % (Auto) [place] % (Auto) Eos % (Auto) Baso % (Auto) Lymph # (Auto) [place] # (Auto) Eos # (Auto) Baso # (Auto) Abs Immat Gran (auto) Absolute Neuts (auto) Absolute Nucleated RBC Nucleated RBC % (auto) PT INR APTT Anion Gap Estim Creat Clear Calc Estimated GFR Random Glucose Calcium Magnesium Total Bilirubin AST ALT Alkaline Phosphatase Total Creatine Kinase Troponin I High Sens 26.6 H D 42.9 H D Total Protein Albumin Imaging Radiologist's Impressions: Impressions Chest X-Ray 05/13/25 08:05 IMPRESSION: No active pulmonary disease. No significant interval change from 01/13/2025. Electronically signed by: Saravanan Ramos MD 05/13/2025 08:27 AM [facility] RP Knee X-Ray 05/13/25 08:10 IMPRESSION: 1. Chronic remodeling of the distal femur related to old injury. 2. Severe lateral compartment arthritis. Moderate medial and patellofemoral arthritis. 3. Slight undulation/depression of the lateral femoral condyle articular surface, could be related to degenerative changes, age-indeterminate fracture not excluded. 4. Small effusion. Electronically signed by: Kurt Tuttle MD 05/13/2025 08:32 AM EST RP Cervical Spine CT 05/13/25 09:47 IMPRESSION: There is mild reversal of cervical lordosis similar to the prior. This can be related to degenerative changes, positioning, muscle spasm, or posterior soft tissue injury. No acute bony abnormality. Electronically signed by: Rod Garcia MD 05/13/2025 10:26 AM [facility] RP Chest CT 05/13/25 09:47 IMPRESSION: 1. No evidence of traumatic injury to the chest. 2. 3.5 x 2.3 x 2.4 cm lobulated mass in the region of the pancreatic tail. Nonemergent pancreatic MRI is recommended. 3. Right lower lobe pulmonary nodules as described. Six-month follow-up chest CT is recommended per Fleischner Society guidelines below. Fleischner Criteria for pulmonary nodule follow-up SOLID NODULES: Low risk patient: <6mm: no follow-up 6-8mm: 6 month follow-up CT >8mm: PET/Biopsy/ 3 month follow-up CT High risk patient: <6mm: 12 month follow-up CT 6-8mm: 6 month follow-up CT >8mm: PET/Biopsy/ 3 month follow-up CT SUB-SOLID/GROUNDGLASS NODULES: All patients: > or = 6mm: 6 month follow-up CT *Please note that in patients in the following categories, the Fleischner criteria do not apply: Immunocompromised, lung cancer screening population, age below 35, and patients with known malignancy Electronically signed by: Mann Heard MD 05/13/2025 10:24 AM EST RP Head CT 05/13/25 09:47 IMPRESSION: No acute intracranial abnormality. Electronically signed by: Rod Garcia MD 05/13/2025 10:21 AM EST RP Assessment and Plan (1) Arthritis of right knee: Status: Acute Plan 64F PMH TBI with dysarthria wheelchair bound, DVT RLE 11/2024 on eliquis, morbid obesity, unspecified inflammatory arthritis on MTX and plaquenil, presented with fall from recliner Fall complicated by right knee pain Check CT No need for PT as patient is wheelchair-bound Elevated troponin ? Mild rhabdo versus mild demand ischemia Follow up Cardiology, echo, repeat troponin, CPK History of DVT of right lower extremity Ongoing swelling, check repeat ultrasound, continue apixaban Morbid obesity Weight loss recommended History of TBI with behavioral changes Continue mood stabilizers Unspecified inflammatory arthritis Continue Plaquenil On methotrexate outpatient DVT prophylaxis-Eliquis Full code Quality Stroke Does the patient have a stroke diagnosis?: No VTE Prior VTE?: Yes VTE Risk Level:: Medical - moderate - high VTE Device Contraindication: Treatment Not Indicated VTE Drug Contraindication: N/A - Med Ordered
[2025-05-13 19:26] LABS: D Dimer High Sensitivity 224 NG/ML
--- NOTE | 2025-05-13 19:36 | PHA.MEDREC ---
Addendum entered by Hernan Hodges RPh 05/13/25 19:45: Reviewed by [facility] Original Note: Pharmacy Consult ? Medication Reconciliation Pharmacy has completed the medication reconciliation. Utilized list from [facility] to confirm med list.
--- NOTE | 2025-05-13 19:38 | MHC.EDTECH ---
pt assisted on hospital bed, bed alarm on, call gonsales within reach
[2025-05-14] VITALS (7 sets, daily range): BP systolic 140–172; BP diastolic 63–85; PULSE 65–90; RESP 16–20; TEMP 36.2–36.7; O2SAT 93–97
[2025-05-14 06:11] LABS: Hematocrit 36.5 % (37.0-47.0); Hemoglobin 11.7 g/dl (12.0-16.0); Mean Corpuscular HGB Conc 32.1 g/dl (31.0-35.0); Mean Corpuscular Hemoglobin 28.1 pg (27.0-33.0); Mean Corpuscular Volume 87.5 fL (80.0-98.0); NRBC Abs Auto 0.000 X10*3/uL (0.0-0.012); NRBC Pct Auto 0.0 /100WBC (0.0-0.2); Platelet Count 388 X10*3/uL (160-400); Red Blood Count 4.17 X10*6/uL (4.20-5.50); White Blood Count 8.2 X10*3/uL (4.8-10.8)
[2025-05-14 06:32] LABS: Anion Gap 11 (12-20); Blood Urea Nitrogen 22 mg/dL (9-16); Calcium 8.8 mg/dL (8.4-10.2); Carbon Dioxide 26 mmol/L (22-29); Chloride 109 mmol/L (96-108); Creatinine Clr Calc Pharmacy 107.7; Estimated Glomerular Filt Rate > 60; Potassium 3.9 mmol/L (3.3-5.1); Sodium 142 mmol/L (135-145)
[2025-05-14 06:37] LABS: Troponin-I High Sensitivity 31.5 ng/L (<3.5-17.0)
[2025-05-14] MEDS: Aspirin Enteric Coated 81 MG TABLET.DR PO (09:26)
--- NOTE | 2025-05-14 09:31 | HO.PM.IMPN ---
Subjective Subjective Date of Service: 05/14/25 Interval History: no complaints Physical Exam Exam: Exam: General: AO X 2, no acute distress Resp: CTA bilateral, no accessory muscles used CVS: S1,S2,RRR GI: soft, non tender, non distended Neuro: motor grossly intact, alert, dysarthria Right lower extremity swelling, tenderness over right knee Vital Signs: Vital Signs: Last Vital Signs Temp 98.1 F 05/14/25 07:23 Pulse 78 05/14/25 09:23 Resp 20 05/14/25 07:23 BP 143/85 H 05/14/25 09:28 Pulse Ox 97 05/14/25 07:23 O2 Del Method Room Air 05/14/25 07:23 BMI result Body Mass Index 40.6 Objective Data Active Medications Acetaminophen (Acetaminophen 325 Mg Tablet) 650 mg PO Q6H PRN PRN Reason: Pain, Mild 1-3,fever,headache Last Admin: 05/13/25 21:59 Dose: 650 mg Documented By: SONIA Apixaban (Apixaban 5 Mg Tablet) 5 mg PO BID [facility] Last Admin: 05/14/25 09:30 Dose: 5 mg Documented By: ÁNGEL Aripiprazole (Aripiprazole 30 Mg Tablet) 30 mg PO DAILY [facility] Aripiprazole (Aripiprazole 5 Mg Tablet) 5 mg PO DAILY [facility] Aspirin (Aspirin Enteric Coated 81 Mg Tablet.Dr) 81 mg PO DAILY [facility] Last Admin: 05/14/25 09:26 Dose: 81 mg Documented By: ÁNGEL Calcium Carbonate (Calcium Carbonate 750 Mg Tab.Chew) 750 mg PO Q4H PRN PRN Reason: Heartburn Carvedilol (Carvedilol 6.25 Mg Tablet) 6.25 mg PO BID [facility]; Protocol Last Admin: 05/14/25 09:23 Dose: 6.25 mg Documented By: ÁNGEL Famotidine (Famotidine 20 Mg Tablet) 40 mg PO BEDTIME [facility] Fluticasone Propionate (Fluticasone Propionate Nasal 16 Gm [place]) 2 spray NOSTRIL-B DAILY [facility] Folic Acid (Folic Acid 1 Mg Tablet) 1 mg PO DAILY [facility] Last Admin: 05/14/25 09:30 Dose: 1 mg Documented By: ÁNGEL Haloperidol (Haloperidol 5 Mg Tablet) 5 mg PO BEDTIME [facility] Hydroxychloroquine Sulfate (Hydroxychloroquine Sulfate 200 Mg Tablet) 200 mg PO BID [facility] Last Admin: 05/14/25 09:27 Dose: 200 mg Documented By: ÁNGEL Magnesium Hydroxide (Milk Of Magnesia 30 Ml Oral.Susp) 30 ml PO DAILY PRN PRN Reason: Constipation Melatonin (Melatonin 3 Mg Tablet) 6 mg PO BEDTIME PRN PRN Reason: Insomnia Multivitamins/Vitamin C (Multivitamin Tablet) 1 tab PO DAILY [facility] Last Admin: 05/14/25 09:26 Dose: 1 tab Documented By: ÁNGEL Nitrofurantoin Macrocrystals (Nitrofurantoin Macrocrystal 50 Mg Capsule) 50 mg PO DAILY [facility] Last Admin: 05/14/25 09:24 Dose: 50 mg Documented By: ÁNGEL Omeprazole (Omeprazole 20 Mg Capsule.Dr) 20 mg PO DAILY@0630 [facility] Sodium Chloride (0.9 % Sodium Chloride Flush 3 Ml Syringe) 3 ml IVFLUSH QSHIFT [facility] Last Admin: 05/14/25 09:30 Dose: Not Given Documented By: ÁNGEL Non-Admin Reason: Previously Administered Tiotropium [place] (Tiotropium [place] 2.5 Mcg 1 Puff/2.5 Mcg Mist.Inhal) 2 puff INHALE RDAILY [facility] Trazodone HCl (Trazodone Hcl 100 Mg Tablet) 100 mg PO BEDTIME [facility] Valsartan (Valsartan 40 Mg Tablet) 40 mg PO BID [facility]; Protocol Last Admin: 05/14/25 09:28 Dose: 40 mg Documented By: ÁNGEL Vitamin D (Cholecalciferol (Vitamin D3) 25 Mcg Tablet) 50 mcg PO DAILY [facility] Last Admin: 05/14/25 09:25 Dose: 50 mcg Documented By: ÁNGEL Labs 05/14/25 05:52 05/14/25 05:52 Labs: Laboratory Results - last 24 hr 05/13/25 05/13/25 05/13/25 07:37 07:38 10:05 MCV MCH MCHC RDW Plt Count MPV Absolute Nucleated RBC Nucleated RBC % (auto) D-Dimer High Sensitivty 224 Anion Gap Estim Creat Clear Calc Estimated GFR Random Glucose Calcium Total Creatine Kinase 56 Troponin I High Sens 11.5 D 11/07/25 11/07/25 11/08/25 12:16 15:56 05:52 MCV 87.5 MCH 28.1 MCHC 32.1 RDW 16.1 H Plt Count 388 MPV 8.9 L Absolute Nucleated RBC 0.000 Nucleated RBC % (auto) 0.0 D-Dimer High Sensitivty Anion Gap 11 L Estim Creat Clear Calc 107.7 Estimated GFR > 60 Random Glucose 91 Calcium 8.8 Total Creatine Kinase Troponin I High Sens 26.6 H D 42.9 H D 31.5 H Assessment and Plan (1) Arthritis of right knee: Status: Acute Plan 64F PMH TBI with dysarthria wheelchair bound, DVT RLE 11/2024 on eliquis, morbid obesity, unspecified inflammatory arthritis on MTX and plaquenil, presented with fall from recliner Fall complicated by right knee pain No need for PT as patient is wheelchair-bound Elevated troponin ? Mild rhabdo versus mild demand ischemia Follow up Cardiology, echo History of DVT of right lower extremity Ongoing swelling, check repeat ultrasound, continue apixaban Morbid obesity Weight loss recommended History of TBI with behavioral changes Continue mood stabilizers Unspecified inflammatory arthritis Continue Plaquenil On methotrexate outpatient DVT prophylaxis-Eliquis Full code reason for continued hospitalization:cardio eval Quality Stroke Does the patient have a stroke diagnosis?: No VTE Prior VTE?: Yes VTE Risk Level:: Medical - moderate - high VTE Device Contraindication: Treatment Not Indicated VTE Drug Contraindication: N/A - Med Ordered
[2025-05-14] MEDS: ARIPiprazole 30 MG TABLET PO (10:17)
[2025-05-14] MEDS: Tiotropium Bromide 2.5 mcg 1 PUFF/2.5 MCG MIST.INHAL 2 PUFF INHALE (11:24)
--- NOTE | 2025-05-14 11:48 | MHC.CM.PN ---
Karen 05/14/25, CM met with pt., could not understand her, contacted primary contact: Yuliana, she was not there, spoke with Anayeli at [facility] assisted where pt. resides. Was informed that pt. has assistance with [employer], uses a W/C and a lift for transfers. She will go home via BLS. Per record revew, pt. does not have HCP or guardian, PCP is: BIB Swann. DCP: return to assisted with prior level of care via BLS. CM to follow for DC needs.
--- NOTE | 2025-05-14 12:46 | PM.DS ---
DS: Providers Provider Date of Service: 05/14/25 Date of admission: 05/13/25 17:39 Date of discharge: 05/14/25 Primary care physician: Unknown Physician Consults: 05/13/25 17:40 Consult to Cardiology Routine Consulting Provider: [facility] Reason for consultation: trop Has provider been notified: Yes DS: Diagnosis Discharge Diagnosis (1) Arthritis of right knee: Status: Acute DS: Summary Hospital Course Hospital Course: from initial hpi: 64F PMH TBI with dysarthria wheelchair bound, DVT RLE 11/2024 on eliquis, morbid obesity, unspecified inflammatory arthritis on MTX and plaquenil, presented with fall from recliner. Patient is a poor historian, unclear how long she was on the floor. Sent to ED and troponin slowly increased from 3.4 to 43. EKG with no ischemic changes. Trauma workup unremarkable so far but CT of knees pending. hospital course: Patient was admitted for fall complicated by right knee pain. No fracture seen on CT. Incidentally noted to have elevated troponin, no chest pain, no signs of ACS seen by cardiology felt this was unlikely to be cardiac. For history of DVT with in right lower extremity in November 2024 was continued on apixaban, repeat ultrasound was negative. For morbid obesity weight loss recommended. For history of TBI with behavioral changes was continued on mood stabilizers. For unspecified inflammatory arthritis with was continued on Plaquenil methotrexate. For hypertension was started on carvedilol and valsartan. Patient will be discharged back to skilled nursing. Time Attestation Discharge Coordination Time (in mins): 33 Quality: Safe Use of Opioids Does Pt have an Active Cancer Diagnosis on the Problem List?: No Quality: Stroke Does the patient have a stroke diagnosis?: No Physical Exam Exam: Exam: General: AO X 2, no acute distress Resp: CTA bilateral, no accessory muscles used CVS: S1,S2,RRR GI: soft, non tender, non distended Neuro: motor grossly intact, alert, dysarthria Right lower extremity swelling, tenderness over right knee Vital Signs: Vital Signs: Last Vital Signs Temp 97.5 F 05/14/25 11:27 Pulse 65 05/14/25 11:27 Resp 18 05/14/25 11:27 BP 172/73 H 05/14/25 11:27 Pulse Ox 96 05/14/25 11:27 O2 Del Method Room Air 05/14/25 11:27 BMI result Body Mass Index 40.6 DS: Data Data Completed and Pending Labs on day of discharge: Laboratory Results - last 24 hr 05/13/25 05/13/25 05/13/25 07:37 07:38 15:56 WBC RBC Hgb Hct MCV MCH MCHC RDW Plt Count MPV Absolute Nucleated RBC Nucleated RBC % (auto) D-Dimer High Sensitivty 224 Sodium Potassium Chloride Carbon Dioxide Anion Gap BUN Creatinine Estim Creat Clear Calc Estimated GFR Random Glucose Calcium Total Creatine Kinase 56 Troponin I High Sens 42.9 H D 05/14/25 05:52 WBC 8.2 RBC 4.17 L Hgb 11.7 L Hct 36.5 L MCV 87.5 MCH 28.1 MCHC 32.1 RDW 16.1 H Plt Count 388 MPV 8.9 L Absolute Nucleated RBC 0.000 Nucleated RBC % (auto) 0.0 D-Dimer High Sensitivty Sodium 142 Potassium 3.9 Chloride 109 H Carbon Dioxide 26 Anion Gap 11 L BUN 22 H Creatinine 0.60 Estim Creat Clear Calc 107.7 Estimated GFR > 60 Random Glucose 91 Calcium 8.8 Total Creatine Kinase 80 Troponin I High Sens 31.5 H Discharge Plan Discharge Anticipated Discharge Date/Time: 05/14/25 12:43 Patient Disposition: Home, Self-Care Discharge Diagnosis: fall Referrals: Physician,Unknown J [Primary Care Provider, Medical] - 1 Week Discharge Medications: New carvedilol 6.25 mg Tablet 6.25 mg PO BID 90 Days Qty: 180 0RF Protocol: Hold for SBP/HR < HOLD for SBP < : 90 HOLD for HR < : 60 valsartan 40 mg Tablet 40 mg PO BID 90 Days Qty: 180 0RF Protocol: Hold for SBP< HOLD for SBP < : 90 Continued multivitamin [Daily-Jerry] Tablet 1 tab PO DAILY celecoxib 200 mg capsule 200 mg PO FR@1200 acetaminophen 325 mg Tablet 650 mg PO Q6H PRN (Reason: Fever Or Pain) nitrofurantoin macrocrystal 50 mg capsule 50 mg PO DAILY methotrexate sodium 2.5 mg tablet 20 mg PO FR trazodone 100 mg tablet 100 mg PO BEDTIME calcium carbonate 200 mg calcium (500 mg) Tablet,Chewable 1,500 mg PO Q8H PRN (Reason: Heartburn) omeprazole 20 mg capsule,delayed release(DR/EC) 20 mg PO DAILY@0630 folic acid 1 mg Tablet 1 mg PO DAILY aspirin 81 mg Tablet 81 mg PO DAILY nystatin [Nyamyc] 100,000 unit/gram powder 1 appl topical Q6H PRN (Reason: Rash) albuterol sulfate [Ventolin HFA] 90 mcg/actuation HFA aerosol inhaler 2 puff inhalation Q4H PRN (Reason: Shortness Of Breath Or Wheezing) ketoconazole 2 % cream 1 appl topical BID carboxymethylcellulose sodium 1 % Drops, Liquid Gel 1 drp OPHTHALMIC (EYE) TID Rx Instructions: both eyes aripiprazole 30 mg tablet 30 mg PO DAILY aripiprazole 5 mg tablet 5 mg PO DAILY cholecalciferol (vitamin D3) [Vitamin D3] 50 mcg (2,000 unit) Tablet 50 mcg PO DAILY Refresh P.M. 57.3-42.5 % Ointment 1 appl ophthalmic (eye) BEDTIME Rx Instructions: both eyes omega 1-mqw-oxb-fish oil [Fish Oil] 1,000 (120-180) mg Capsule 1 cap PO DAILY Desitin 40 % Paste 1 appl TOPICAL BID OcuSoft Lid Scrub Pads, Medicated 1 pad TOPICAL BEDTIME Eliquis 5 mg tablet 5 mg PO BID Incruse Ellipta 62.5 mcg/actuation blister with device 1 inh inhalation DAILY famotidine 40 mg tablet 40 mg PO BEDTIME hydroxychloroquine 200 mg tablet 200 mg PO BID celecoxib 200 mg capsule 200 mg PO SUMOTUWETHFR@0800 fluticasone propionate 50 mcg/actuation spray,suspension 2 spray intranasal DAILY haloperidol 5 mg tablet 5 mg PO BEDTIME Discharge Orders: Discharge Order (Routine); Ordered 05/14/25 Ordered By: Constantin Cat Diet: Advance to usual diet Activity on Discharge: As tolerated Stand Alone Forms: Patient Portal Discharge page Print Language: Kazakh Care Plan Goals: bert very Health Concerns: htn Plan of Treatment: adding coreg and valsartan Assessment: see above
--- NOTE | 2025-05-14 13:20 | PM.CNCAR ---
History of Present Illness History of Present Illness Date of Service: 05/14/25 Requesting physician: Constantin Cat Chief complaint: elevated trop after fall Narrative: [age] year female with traumatic brain injury who lives in a retirement presenting for fall. She apparently tripped and fell but history is unclear. She has hoarseness of voice and some difficulty in communication after the traumatic brain injury. She is denying any chest discomfort shortness of breath. On admission EKGs did not show any dynamic changes. Her high sensitivity troponin levels were 3.4, recheck was 11.5, 26.6, 42.9 and 31.5. Multiple troponins checked which are very borderline. She is denying symptoms. Only complaint she has is cough and hoarseness which she is calling laryngitis. PENDING SALE TO [facility] Past Medical History Medical History COPD (chronic obstructive pulmonary disease) TBI (traumatic brain injury) Social History Social History Household Members: Unknown / Unable to assess Housing: Unknown / Unable to assess Patient Tobacco Use Status: Never used Tobacco Second Hand Smoke Exposure: No Advance Directives Date on File: 05/13/25 service: No Meds Allergies Allergy/AdvReac Type Severity Reaction Status Date / Time erythromycin base Allergy Swelling Verified 05/13/25 06:46 Active Medications: Current Medications Acetaminophen (Acetaminophen 325 Mg Tablet) 650 mg PO Q6H PRN PRN Reason: Pain, Mild 1-3,fever,headache Last Admin: 05/13/25 21:59 Dose: 650 mg Apixaban (Apixaban 5 Mg Tablet) 5 mg PO BID [facility] Last Admin: 05/14/25 09:30 Dose: 5 mg Aripiprazole (Aripiprazole 30 Mg Tablet) 30 mg PO DAILY [facility] Last Admin: 05/14/25 10:17 Dose: 30 mg Aripiprazole (Aripiprazole 5 Mg Tablet) 5 mg PO DAILY [facility] Last Admin: 05/14/25 10:16 Dose: 5 mg Aspirin (Aspirin Enteric Coated 81 Mg Tablet.) 81 mg PO DAILY [facility] Last Admin: 05/14/25 09:26 Dose: 81 mg Calcium Carbonate (Calcium Carbonate 750 Mg Tab.Chew) 750 mg PO Q4H PRN PRN Reason: Heartburn Carvedilol (Carvedilol 6.25 Mg Tablet) 6.25 mg PO BID [facility]; Protocol Last Admin: 05/14/25 09:23 Dose: 6.25 mg Famotidine (Famotidine 20 Mg Tablet) 40 mg PO BEDTIME [facility] Fluticasone Propionate (Fluticasone Propionate Nasal 16 Gm [place]) 2 spray NOSTRIL-B DAILY [facility] Last Admin: 05/14/25 10:17 Dose: 2 spray Folic Acid (Folic Acid 1 Mg Tablet) 1 mg PO DAILY [facility] Last Admin: 05/14/25 09:30 Dose: 1 mg Haloperidol (Haloperidol 5 Mg Tablet) 5 mg PO BEDTIME [facility] Hydroxychloroquine Sulfate (Hydroxychloroquine Sulfate 200 Mg Tablet) 200 mg PO BID [facility] Last Admin: 05/14/25 09:27 Dose: 200 mg Magnesium Hydroxide (Milk Of Magnesia 30 Ml Oral.Susp) 30 ml PO DAILY PRN PRN Reason: Constipation Melatonin (Melatonin 3 Mg Tablet) 6 mg PO BEDTIME PRN PRN Reason: Insomnia Multivitamins/Vitamin C (Multivitamin Tablet) 1 tab PO DAILY [facility] Last Admin: 05/14/25 09:26 Dose: 1 tab Nitrofurantoin Macrocrystals (Nitrofurantoin Macrocrystal 50 Mg Capsule) 50 mg PO DAILY [facility] Last Admin: 05/14/25 09:24 Dose: 50 mg Omeprazole (Omeprazole 20 Mg Capsule.Dr) 20 mg PO DAILY@0630 [facility] Sodium Chloride (0.9 % Sodium Chloride Flush 3 Ml Syringe) 3 ml IVFLUSH QSHIFT [facility] Last Admin: 05/14/25 09:30 Dose: Not Given Tiotropium Ruston (Tiotropium [place]on 2.5 Mcg 1 Puff/2.5 Mcg Mist.Inhal) 2 puff INHALE RDAILY [facility] Last Admin: 05/14/25 11:24 Dose: 2 puff Trazodone HCl (Trazodone Hcl 100 Mg Tablet) 100 mg PO BEDTIME [facility] Valsartan (Valsartan 40 Mg Tablet) 40 mg PO BID [facility]; Protocol Last Admin: 05/14/25 09:28 Dose: 40 mg Vitamin D (Cholecalciferol (Vitamin D3) 25 Mcg Tablet) 50 mcg PO DAILY [facility] Last Admin: 05/14/25 09:25 Dose: 50 mcg Home Medications ?Medication ?Instructions ?Recorded ?Confirmed ?Last Taken ?Type celecoxib 200 mg capsule 200 mg PO SUMOTUWETHFR@0800 09/23/23 05/13/25 Unknown History famotidine 40 mg tablet 40 mg PO BEDTIME 09/23/23 05/13/25 Unknown History fluticasone propionate 50 2 spray intranasal DAILY 09/23/23 05/13/25 Unknown History mcg/actuation nasal spray,suspension haloperidol 5 mg tablet 5 mg PO BEDTIME 09/23/23 05/13/25 Unknown History hydroxychloroquine 200 mg tablet 200 mg PO BID 09/23/23 05/13/25 Unknown History acetaminophen 325 mg tablet 650 mg PO Q6H PRN Fever Or Pain 05/13/25 05/13/25 Unknown History albuterol sulfate 90 mcg/actuation 2 puff inhalation Q4H PRN 05/13/25 05/13/25 Unknown History aerosol inhaler (Ventolin HFA) Shortness Of Breath Or Wheezing apixaban 5 mg tablet (Eliquis) 5 mg PO BID 05/13/25 05/13/25 Unknown History aripiprazole 30 mg tablet 30 mg PO DAILY 05/13/25 05/13/25 Unknown History aripiprazole 5 mg tablet 5 mg PO DAILY 05/13/25 05/13/25 Unknown History aspirin 81 mg tablet 81 mg PO DAILY 05/13/25 05/13/25 Unknown History calcium carbonate 1,500 mg PO Q8H PRN Heartburn 05/13/25 05/13/25 Unknown History carboxymethylcellulose sodium 1 % 1 drp ophthalmic (eye) TID 05/13/25 05/13/25 Unknown History eye liquid gel drops celecoxib 200 mg capsule 200 mg PO FR@1200 05/13/25 05/13/25 Unknown History cholecalciferol (vitamin D3) 50 50 mcg PO DAILY 05/13/25 05/13/25 Unknown History mcg (2,000 unit) tablet (Vitamin D3) eyelid cleanser combination 5 1 pad topical BEDTIME 05/13/25 05/13/25 Unknown History (OcuSoft Lid Scrub topical pads) folic acid 1 mg tablet 1 mg PO DAILY 05/13/25 05/13/25 Unknown History ketoconazole 2 % topical cream 1 appl topical BID 05/13/25 05/13/25 Unknown History methotrexate sodium 2.5 mg tablet 20 mg PO FR 05/13/25 05/13/25 Unknown History multivitamin (Daily-Jerry tablet) 1 tab PO DAILY 05/13/25 05/13/25 Unknown History nitrofurantoin macrocrystal 50 mg 50 mg PO DAILY 05/13/25 05/13/25 Unknown History capsule nystatin 100,000 unit/gram topical 1 appl topical Q6H PRN Rash 05/13/25 05/13/25 Unknown History powder (Nyamyc) omega 9-las-fyt-fish oil 1,000 mg 1 cap PO DAILY 05/13/25 05/13/25 Unknown History (120 mg-180 mg) capsule (Fish Oil) omeprazole 20 mg capsule,delayed 20 mg PO DAILY@0630 05/13/25 05/13/25 Unknown History release trazodone 100 mg tablet 100 mg PO BEDTIME 05/13/25 05/13/25 Unknown History umeclidinium 62.5 mcg/actuation 1 inh inhalation DAILY 05/13/25 05/13/25 Unknown History blister powder for inhalation (Incruse Ellipta) white petrolatum-mineral oil 57.3 1 appl ophthalmic (eye) BEDTIME 05/13/25 05/13/25 Unknown History %-42.5 % eye ointment (Refresh P.M.) zinc oxide-cod liver oil 40 % 1 appl topical BID 05/13/25 05/13/25 Unknown History topical paste (Desitin) Physical Exam Vital Signs: Vital Signs: Last Vital Signs Temp 97.5 F 05/14/25 11:27 Pulse 65 05/14/25 11:27 Resp 18 05/14/25 11:27 BP 172/73 H 05/14/25 11:27 Pulse Ox 96 05/14/25 11:27 O2 Del Method Room Air 05/14/25 11:27 BMI result Body Mass Index 40.6 GENERAL APPEARANCE: in no acute distress, pleasant. NECK: no carotid bruit, no jugular venous distention. SKIN: no suspicious lesions, warm and dry. HEART: no murmurs, regular rate and rhythm. LUNGS: clear to auscultation bilaterally. ABDOMEN: soft, nontender. EXTREMITIES: no edema. PERIPHERAL PULSES: equal. NEUROLOGIC: No gross deficits, AAO X 3 Objective Labs and Meds 05/14/25 05:52 05/14/25 05:52 Lab results: Laboratory Results - last 24 hr 05/13/25 05/13/25 05/13/25 07:37 07:38 15:56 WBC RBC Hgb Hct MCV MCH MCHC RDW Plt Count MPV Absolute Nucleated RBC Nucleated RBC % (auto) D-Dimer High Sensitivty 224 Sodium Potassium Chloride Carbon Dioxide Anion Gap BUN Creatinine Estim Creat Clear Calc Estimated GFR Random Glucose Calcium Total Creatine Kinase 56 Troponin I High Sens 42.9 H D 05/14/25 05:52 WBC 8.2 RBC 4.17 L Hgb 11.7 L Hct 36.5 L MCV 87.5 MCH 28.1 MCHC 32.1 RDW 16.1 H Plt Count 388 MPV 8.9 L Absolute Nucleated RBC 0.000 Nucleated RBC % (auto) 0.0 D-Dimer High Sensitivty Sodium 142 Potassium 3.9 Chloride 109 H Carbon Dioxide 26 Anion Gap 11 L BUN 22 H Creatinine 0.60 Estim Creat Clear Calc 107.7 Estimated GFR > 60 Random Glucose 91 Calcium 8.8 Total Creatine Kinase 80 Troponin I High Sens 31.5 H Assessment and Plan (1) Fall: Status: Acute (2) Elevated troponin: Status: Acute Plan 64-year-old lady with traumatic brain injury who currently lives in a retirement presenting with fall. She was noticed to have very mildly elevated troponin levels. She has no anginal symptoms and in particular denies chest discomfort shortness of breath. Blood pressure is elevated. Her home medications should be continued. 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 Clinical story does not appear to be consistent with acute coronary syndrome. Can be discharged back home. She can follow up with us in the office if she has any chest discomfort or other cardiovascular symptoms in the future. Thank you for allowing me to participate in the care of your patient. Please feel free to contact me if you have any questions. Procedures Date of Service Date of Service: 05/14/25
== END 2025-05-14 13:37 | disposition home or self-care (01) ==
LOC: HO.ED 08:48 → HO.EDOVER 17:47 → HO.IMC 19:19
PROVIDERS: Internal Medicine Cardiovascular Disease; Physician Assistant; Admitting Provider Internal Medicine; Emergency Provider Emergency Medicine Emergency Medical Services; PCP Physician Assistant; Visit Provider Internal Medicine
DX: M17.11 Unilateral primary osteoarthritis, right knee (principal); R79.89 Other specified abnormal findings of blood chemistry; R07.9 Chest pain, unspecified; M25.561 Pain in right knee; J44.9 Chronic obstructive pulmonary disease, unspecified; I82.4Z1 Acute embolism and thrombosis of unspecified deep veins of right distal lower extremity; R47.1 Dysarthria and anarthria; M79.604 Pain in right leg; E66.01 Morbid (severe) obesity due to excess calories; Z91.81 History of falling; Z68.41 Body mass index [BMI] 40.0-44.9, adult; Z87.820 Personal history of traumatic brain injury; Z99.3 Dependence on wheelchair; Z79.01 Long term (current) use of anticoagulants; Z79.899 Other long term (current) drug therapy
CPT/HCPCS: 36415; 70450; 71045; 71250; 72125; 73562; 73700; 80048; 80053; 82550; 83735; 84484; 85025; 85027; 85379; 85610; 85730; 93005; 93971; 94640; 99222; 99285

== ENCOUNTER → 2025-05-13 08:05 | Outpatient (BNV) | payer MEDICARE, MEDICAID, SELFPAY | PROVIDERS: Emergency Provider Emergency Medicine Emergency Medical Services; Visit Provider Radiology Diagnostic Radiology | DX: R91.8 Other nonspecific abnormal finding of lung field (principal); Z03.89 Encounter for observation for other suspected diseases and conditions ruled out; R19.00 Intra-abdominal and pelvic swelling, mass and lump, unspecified site; M17.11 Unilateral primary osteoarthritis, right knee; M25.461 Effusion, right knee; R07.9 Chest pain, unspecified; Z04.3 Encounter for examination and observation following other accident | CPT/HCPCS: 71045; 71250 ==

== ENCOUNTER → 2025-05-13 17:39 | Outpatient (BNV) | payer MEDICARE, MEDICAID, SELFPAY | PROVIDERS: Admitting Provider Internal Medicine; Emergency Provider Emergency Medicine Emergency Medical Services; Visit Provider Internal Medicine | DX: M17.11 Unilateral primary osteoarthritis, right knee (principal) | CPT/HCPCS: 99223; 99239; 99499 ==

== ENCOUNTER → 2025-05-13 17:39 | Outpatient (BNV) | payer MEDICARE, MEDICAID, SELFPAY | PROVIDERS: Admitting Provider Internal Medicine; Emergency Provider Emergency Medicine Emergency Medical Services; Visit Provider Internal Medicine Cardiovascular Disease | DX: W19.XXXA Unspecified fall, initial encounter (principal); R77.8 Other specified abnormalities of plasma proteins | CPT/HCPCS: 99222 ==